=== PATIENT | male | born 1950 | race Caucasian/White ===

== ENCOUNTER 2017-05-13 16:17 | Emergency (ER) | payer MEDICARE ==
[2017-05-13] MEDS ORDERED: SODIUM CHLORIDE 0.9% 1,000 ML IV STA (18:42)
--- NOTE | 2017-05-13 18:50 | ED ---
Headache HPI - General Chief Complaint: Headache Stated Complaint: Visual Disturbance, Headache Time Seen by Provider: 05/13/17 18:29 Mode of arrival: wheelchair Limitations: no limitations - History of Present Illness Initial Comments: 66 years old male comes in with the headache and the tunnel vision for about a week now he said he had a headache for the one week headache started on the top of the head now artifacts back of the back of the head family noticed that his speech is quite slurred he has no teeth and he had a hard time talking before but her right now it's quite quite quite worse speech is unaffected for 2 days now he has a headache he has a blurred vision he had a slurred speech and headache pain going on for a week with the time of dictation and it's worse with going on for 2 days he denies any weakness of upper extremity exam he said he is hard time walking area and she has smoked most part of his life he denies any neck pain he denies any chest pain there is no pleuritic chest pain it does not hurt worse when he takes a deep breath no abdominal pain his legs are weak there is no weakness of her extremities - Related Data Home Medications Medication Instructions Recorded Confirmed Albuterol Nebulized [Ventolin 2.5 mg INHALATION RT-QID 05/13/17 05/13/17 Nebulized] Atenolol 25 mg PO DAILY 05/13/17 05/13/17 Levofloxacin [Levaquin] 500 mg PO DAILY 05/13/17 05/13/17 Ranitidine HCl 150 mg PO DAILY 05/13/17 05/13/17 Terazosin [Hytrin] 5 mg PO HS 05/13/17 05/13/17 Theophylline 12 Hour [Buddy-Dur] 300 mg PO BID 05/13/17 05/13/17 methylPREDNISolone [Medrol Dose See Taper PO DIRECTED 05/13/17 05/13/17 Pack] Allergies Allergy/AdvReac Type Severity Reaction Status Date / Time No Known Allergies Allergy Verified 05/13/17 18:33 Review of Systems ROS Statement: Those systems with pertinent positive or pertinent negative responses have been documented in the HPI. ROS Other: All systems not noted in ROS Statement are negative. Past Medical History Past Medical History: Asthma, COPD History of Any Multi-Drug Resistant Organisms: None Reported Past Surgical History: No Surgical Hx Reported Past Psychological History: No Psychological Hx Reported Smoking Status: Current every day smoker Past Alcohol Use History: Occasional Past Drug Use History: None Reported General Exam - General Exam Comments Initial Comments: General: The patient is awake he is breathing fast he looks pale and looks tired GCS is 15 Skin: Skin is warm and dry and no rashes or lesions are noted. Eye: Pupils are equal, round and reactive to light, extra-ocular movements are intact; there is normal conjunctiva bilaterally. Ears, nose, mouth and throat: There are moist mucous membranes and no oral lesions. Neck: The neck is supple, there is no tenderness or JVD. Cardiovascular: There is a regular rate and rhythm. No murmur, rub or gallop is appreciated. Respiratory: To auscultation bilateral and lungs are consistent with a severe COPD Gastrointestinal: Soft, non-distended, non-tender abdomen without masses or organomegaly noted. There is no rebound or guarding present. Bowel sounds are unremarkable. Back: There is no tenderness to palpation in the midline. There is no obvious deformity. Musculoskeletal: Normal ROM, no tenderness, There is no pedal edema. There is no calf tenderness or swelling. No cords were appreciated. Neurological: CN II-XII intact, Cranial nerves III through XII are intact. There are no obvious motor or sensory deficits. Coordination appears grossly intact. Speech is normal. Psychiatric: Cooperative, appropriate mood & affect, normal judgment. Limitations: no limitations Course Vital Signs 05/13/17 16:57 Temperature 98.1 F Pulse Rate 69 Respiratory 20 Rate Blood Pressure 132/75 O2 Sat by Pulse 97 Oximetry EKG is normal normal sinus rhythm ventricular rate is 65 OK interval is 152 QRS duration is 74 QT/QTc is 390/45 review of this EKG as bit harder because of the massive artifacts but I suspect ST elevation in lead 2 and lead 3 then I have similar findings in V4 V5 and V6 I [place] [facility] [place] 8D shows a new changes but he hasn't no chest pain or he has no pleuritic chest pain and do a quick head CT to rule out any subdural or epidural Patient is reassessed at term 2029, head CT is normal CBC INR troponin and comprehensive metabolic panel, we will recommend Dr. Monsalve to admit him a neuro consult and ophthalmology consult Medical Decision Making - Lab Data Result diagrams: 05/13/17 18:10 05/13/17 18:10 Lab Results 05/13/17 05/13/17 05/13/17 Range/Units 18:10 18:10 18:10 WBC 10.1 (3.8-10.6) k/uL RBC 4.54 (4.30-5.90) m/uL Hgb 14.8 (13.0-17.5) gm/dL Hct 44.5 (39.0-53.0) % MCV 97.9 (80.0-100.0) fL MCH 32.7 (25.0-35.0) pg MCHC 33.4 (31.0-37.0) g/dL RDW 12.8 (11.5-15.5) % Plt Count 268 (150-450) k/uL Neutrophils % 76 % Lymphocytes % 13 % Monocytes % 9 % Eosinophils % 1 % Basophils % 1 % Neutrophils # 7.6 (1.3-7.7) k/uL Lymphocytes # 1.3 (1.0-4.8) k/uL Monocytes # 0.9 (0-1.0) k/uL Eosinophils # 0.1 (0-0.7) k/uL Basophils # 0.1 (0-0.2) k/uL PT (9.0-12.0) sec INR (<1.2) APTT (22.0-30.0) sec Sodium 131 L (137-145) mmol/L Potassium 4.3 (3.5-5.1) mmol/L Chloride 95 L (98-107) mmol/L Carbon Dioxide 24 (22-30) mmol/L Anion Gap 12 mmol/L BUN 15 (9-20) mg/dL Creatinine 0.60 L (0.66-1.25) mg/dL Est GFR (CKD-EPI)AfAm >90 (>60 ml/min/1.73 sqM) Est GFR (CKD-EPI)NonAf >90 (>60 ml/min/1.73 sqM) Glucose 85 (74-99) mg/dL Calcium 9.4 (8.4-10.2) mg/dL Total Bilirubin 0.8 (0.2-1.3) mg/dL AST 19 (17-59) U/L ALT 26 (21-72) U/L Alkaline Phosphatase 44 (38-126) U/L Total Creatine Kinase 36 L (55-170) U/L CK-MB (CK-2) 1.9 (0.0-2.4) ng/mL CK-MB (CK-2) Rel Index 5.3 Troponin I <0.012 (0.000-0.034) ng/mL Total Protein 7.0 (6.3-8.2) g/dL Albumin 3.9 (3.5-5.0) g/dL 05/13/17 Range/Units 18:10 WBC (3.8-10.6) k/uL RBC (4.30-5.90) m/uL Hgb (13.0-17.5) gm/dL Hct (39.0-53.0) % MCV (80.0-100.0) fL MCH (25.0-35.0) pg MCHC (31.0-37.0) g/dL RDW (11.5-15.5) % Plt Count (150-450) k/uL Neutrophils % % Lymphocytes % % Monocytes % % Eosinophils % % Basophils % % Neutrophils # (1.3-7.7) k/uL Lymphocytes # (1.0-4.8) k/uL Monocytes # (0-1.0) k/uL Eosinophils # (0-0.7) k/uL Basophils # (0-0.2) k/uL PT 10.3 (9.0-12.0) sec INR 1.1 (<1.2) APTT 23.5 (22.0-30.0) sec Sodium (137-145) mmol/L Potassium (3.5-5.1) mmol/L Chloride (98-107) mmol/L Carbon Dioxide (22-30) mmol/L Anion Gap mmol/L BUN (9-20) mg/dL Creatinine (0.66-1.25) mg/dL Est GFR (CKD-EPI)AfAm (>60 ml/min/1.73 sqM) Est GFR (CKD-EPI)NonAf (>60 ml/min/1.73 sqM) Glucose (74-99) mg/dL Calcium (8.4-10.2) mg/dL Total Bilirubin (0.2-1.3) mg/dL AST (17-59) U/L ALT (21-72) U/L Alkaline Phosphatase (38-126) U/L Total Creatine Kinase (55-170) U/L CK-MB (CK-2) (0.0-2.4) ng/mL CK-MB (CK-2) Rel Index Troponin I (0.000-0.034) ng/mL Total Protein (6.3-8.2) g/dL Albumin (3.5-5.0) g/dL Disposition Clinical Impression: Headache, Blurred vision, Slurred speech Disposition: ADMITTED IP TO THIS [facility] Condition: Good Referrals: Gavino Monsalve DO [Primary Care Provider] - 1-2 days
[2017-05-13 18:58] LABS: Basophils # (A) 0.1 k/uL (0-0.2); Basophils % (A) 1 %; Eosinophils # (A) 0.1 k/uL (0-0.7); Eosinophils % (A) 1 %; HCT 44.5 % (39.0-53.0); HGB 14.8 gm/dL (13.0-17.5); Lymphocytes # (A) 1.3 k/uL (1.0-4.8); Lymphocytes % (A) 13 %; MCH 32.7 pg (25.0-35.0); MCHC 33.4 g/dL (31.0-37.0); MCV 97.9 fL (80.0-100.0); Mean Platelet Volume 7.3; Monocytes # (A) 0.9 k/uL (0-1.0); Monocytes % (A) 9 %; Neutrophils # (A) 7.6 k/uL (1.3-7.7); Neutrophils % (A) 76 %; Platelet Count 268 k/uL (150-450); RBC 4.54 m/uL (4.30-5.90); RDW 12.8 % (11.5-15.5); WBC 10.1 k/uL (3.8-10.6)
[2017-05-13 19:08] LABS: ALT 26 U/L (21-72); AST 19 U/L (17-59); Albumin 3.9 g/dL (3.5-5.0); Alkaline Phosphatase 44 U/L (38-126); Anion Gap 12 mmol/L; Blood Urea Nitrogen 15 mg/dL (9-20); Calcium 9.4 mg/dL (8.4-10.2); Carbon Dioxide 24 mmol/L (22-30); Chloride 95 mmol/L (98-107); Glucose 85 mg/dL (74-99); Potassium 4.3 mmol/L (3.5-5.1); Sodium 131 mmol/L (137-145); Total Bilirubin 0.8 mg/dL (0.2-1.3)
[2017-05-13 19:09] LABS: INR 1.1 (<1.2); Partial Thromboplastin Time 23.5 sec (22.0-30.0); Prothrombin Time 10.3 sec (9.0-12.0)
[2017-05-13 19:23] LABS: Creatine Kinase 36 U/L (55-170)
[2017-05-13 19:36] LABS: Creatine Kinase MB 1.9 ng/mL (0.0-2.4); Troponin I <0.012 ng/mL (0.000-0.034)
--- NOTE | 2017-05-13 20:14 | CT ---
EXAMINATION TYPE: CT brain wo con DATE OF EXAM: 05/13/2017 COMPARISON: NONE HISTORY: sent by urgent care for changes in vision, headache, slurred speech CT DLP: 1054.2 mGycm Automated exposure control for dose reduction was used. FINDINGS: There is cerebral cortical atrophy. There is moderate patchy hypodensity in the periventricular white matter. There is hypodensity in the right side of the pearl and right cerebral peduncle. There is no mass effect nor midline shift. There is no sign of intracranial hemorrhage. The calvarium is intact. IMPRESSION: CEREBRAL ATROPHY AND CHRONIC SMALL VESSEL ISCHEMIA. NO ACUTE INTRACRANIAL ABNORMALITY. NO HEMORRHAGE.
[2017-05-13 20:45] LABS: Appearance,Urine Clear (Clear); Bilirubin,Urine Negative (Negative); Blood,Urine Negative (Negative); Color,Urine Yellow; Glucose,Urine (UA) Negative (Negative); Ketones,Urine Negative (Negative); Leukocyte Esterase,Urine Negative (Negative); Nitrite,Urine Negative (Negative); Protein,Urine Negative (Negative); Specific Gravity,Urine 1.012 (1.001-1.035)
[2017-05-13 20:55] LABS: Amphetamine Screen,Urine Not Detected (NotDetected); Barbiturate Screen,Urine Not Detected (NotDetected); Benzodiazepines Screen,Urine Not Detected (NotDetected); Cocaine Screen,Urine Not Detected (NotDetected); Methadone Screen, Urine Not Detected (NotDetected); Opiate Screen,Urine Detected (NotDetected); Oxycodone Screen, Urine Not Detected (NotDetected); Phencyclidine Screen,Urine Not Detected (NotDetected); Tricyclic Antidepressant,Urine Not Detected (NotDetected); Urn Cannabinoid Scrn Not Detected (NotDetected)
--- NOTE | 2017-05-13 20:58 | XR ---
EXAMINATION TYPE: XR chest 2V DATE OF EXAM: 05/13/2017 COMPARISON: 12/10/2016 HISTORY: Altered mental status. Chest pain TECHNIQUE: Frontal and lateral views of the chest are obtained. FINDINGS: There is no heart failure nor confluent pneumonic infiltrate. There is slight coarsening o f interstitial markings. There is mild pulmonary hyperinflation. Heart size is normal. Bony thorax is intact. There are chest leads. IMPRESSION: COPD and pulmonary fibrosis. No acute lung disease. No change.
[2017-05-13] MEDS ORDERED: THEOPHYLLINE 24 HOUR 300 MG CAP.ER.24H PO SCH (21:00)
[2017-05-13] MEDS ORDERED: DOXAZOSIN 4 MG TAB PO SCH (21:00)
[2017-05-13 21:06] LABS: Glucose,Whole Blood 90 mg/dL (75-99)
[2017-05-13 21:56] VITALS: BP 134/84; PULSE 72; RESP 17; TEMP 98.4
[2017-05-14] MEDS ORDERED: methylPREDNISolone SOD SUCCI 125 MG/2 ML VIAL IV SCH
[2017-05-14] MEDS ORDERED: IPRATROPIUM-ALBUTEROL 3 ML NEB INHALATION SCH (08:00)
[2017-05-14] MEDS ORDERED: BUDESONIDE 0.5 MG/2 ML NEBU INHALATION SCH (08:00)
[2017-05-14] MEDS ORDERED: SYMBICORT 80-4.5 MCG INHALER INHALATION SCH (08:00)
[2017-05-14] MEDS ORDERED: FAMOTIDINE 20 MG TAB PO SCH (09:00)
[2017-05-14] MEDS ORDERED: LEVOFLOXACIN 500 MG TAB PO SCH (09:00)
[2017-05-14] MEDS ORDERED: ATENOLOL 25 MG TAB PO SCH (09:00)
== END 2017-05-13 21:53 | disposition left against medical advice (07) ==
LOC: EC 16:17 → 6SEL 20:37 → UNDOADMIN 20:37 → EC 21:53
DX: H53.8 Other visual disturbances (principal); R51 Headache; R47.81 Slurred speech; J44.9 Chronic obstructive pulmonary disease, unspecified; F17.200 Nicotine dependence, unspecified, uncomplicated; Z79.899 Other long term (current) drug therapy
CPT/HCPCS: 36415; 70450; 71046; 80053; 80306; 81003; 82550; 82553; 84484; 85025; 85610; 85730; 93005; 96360; 99284

== ENCOUNTER 2017-05-17 10:40 | Inpatient (IN) | payer MEDICARE ==
[2017-05-17] MEDS ORDERED: SODIUM CHLORIDE 0.9% 1,000 ML IV STA (10:57)
[2017-05-17] MEDS ORDERED: ASPIRIN 81 MG PO STA (10:57)
[2017-05-17] MEDS ORDERED: NITROGLYCERIN OINT 1 INCH/GM PACKET TOPICAL STA (10:57)
[2017-05-17] MEDS ORDERED: MORPHINE SULFATE/PF 10MG/10ML VL IV STA (10:57)
[2017-05-17 11:21] LABS: Basophils # (A) 0.1 k/uL (0-0.2); Basophils % (A) 1 %; Eosinophils # (A) 0.1 k/uL (0-0.7); Eosinophils % (A) 1 %; HCT 46.5 % (39.0-53.0); HGB 15.6 gm/dL (13.0-17.5); Lymphocytes # (A) 0.8 k/uL (1.0-4.8); Lymphocytes % (A) 9 %; MCH 32.4 pg (25.0-35.0); MCHC 33.5 g/dL (31.0-37.0); MCV 96.7 fL (80.0-100.0); Mean Platelet Volume 6.9; Monocytes # (A) 0.8 k/uL (0-1.0); Monocytes % (A) 10 %; Neutrophils # (A) 6.3 k/uL (1.3-7.7); Neutrophils % (A) 77 %; Platelet Count 211 k/uL (150-450); RBC 4.81 m/uL (4.30-5.90); RDW 12.7 % (11.5-15.5); WBC 8.2 k/uL (3.8-10.6)
[2017-05-17 11:29] LABS: ABG Base Excess 0.1 mmol/L; ABG HCO3 24 mmol/L (21-25); ABG PCO2 35 mmHg (35-45); ABG PH 7.45 (7.35-7.45); ABG PO2 >400 mmHg (83-108); ABG TCO2 25 mmol/L (19-24)
[2017-05-17 11:32] LABS: ALT 30 U/L (21-72); AST 20 U/L (17-59); Albumin 3.8 g/dL (3.5-5.0); Alkaline Phosphatase 59 U/L (38-126); Anion Gap 14 mmol/L; Blood Urea Nitrogen 9 mg/dL (9-20); Calcium 9.1 mg/dL (8.4-10.2); Carbon Dioxide 24 mmol/L (22-30); Chloride 93 mmol/L (98-107); Glucose 85 mg/dL (74-99); Magnesium 1.6 mg/dL (1.6-2.3); Potassium 3.9 mmol/L (3.5-5.1); Sodium 131 mmol/L (137-145); Total Protein 6.7 g/dL (6.3-8.2)
[2017-05-17 11:35] LABS: D-Dimer 0.25 mg/L FEU (<0.60)
[2017-05-17 11:36] LABS: Partial Thromboplastin Time 25.1 sec (22.0-30.0); Prothrombin Time 10.2 sec (9.0-12.0)
[2017-05-17 11:49] LABS: Creatine Kinase 45 U/L (55-170)
[2017-05-17 12:01] LABS: Creatine Kinase MB 1.8 ng/mL (0.0-2.4); Troponin I <0.012 ng/mL (0.000-0.034)
--- NOTE | 2017-05-17 12:03 | XR ---
EXAMINATION TYPE: XR chest 2V DATE OF EXAM: 05/17/2017 HISTORY: Chest Pain. REFERENCE: Previous study dated 327. FINDINGS: The lungs are overinflated. There is atelectasis in the right upper lobe. Lungs otherwise c lear. Pleural spaces are clear. The heart is not enlarged. IMPRESSION: 1. COPD. 2. ATELECTATIC CHANGE, RIGHT UPPER LOBE.
--- NOTE | 2017-05-17 12:34 | ED ---
SOB HPI - General Chief Complaint: Shortness of Breath Stated Complaint: LESLY Time Seen by Provider: 05/17/17 10:46 Source: patient Mode of arrival: EMS Limitations: no limitations - History of Present Illness Initial Comments: 66-year-old gentleman with a history of smoking for about 50 years I seen him 2 days ago I wanted to admit him and he signed AMA, comes in today with a shortness of breath and respiratory distress in his respiratory rate was 24 he was using accessory muscles embolus crew put him on CPAP we converted that to the BiPAP he looks better complaining about the chest pain complaining about pleuritic chest pain and does cough up phlegm continuously he denies any headaches no abdominal pain no frequency urgency dysuria, devious system is unremarkable otherwise - Related Data Home Medications Medication Instructions Recorded Confirmed Albuterol Nebulized [Ventolin 2.5 mg INHALATION RT-QID 05/13/17 05/13/17 Nebulized] Atenolol 25 mg PO DAILY 05/13/17 05/13/17 Levofloxacin [Levaquin] 500 mg PO DAILY 05/13/17 05/13/17 Ranitidine HCl 150 mg PO DAILY 05/13/17 05/13/17 Terazosin [Hytrin] 5 mg PO HS 05/13/17 05/13/17 Theophylline 12 Hour [Buddy-Dur] 300 mg PO BID 05/13/17 05/13/17 methylPREDNISolone [Medrol Dose See Taper PO DIRECTED 05/13/17 05/13/17 Pack] Allergies Allergy/AdvReac Type Severity Reaction Status Date / Time No Known Allergies Allergy Verified 05/13/17 18:33 Review of Systems ROS Statement: Those systems with pertinent positive or pertinent negative responses have been documented in the HPI. ROS Other: All systems not noted in ROS Statement are negative. Past Medical History Past Medical History: Asthma, COPD History of Any Multi-Drug Resistant Organisms: None Reported Past Surgical History: No Surgical Hx Reported Past Psychological History: No Psychological Hx Reported Smoking Status: Current every day smoker Past Alcohol Use History: Occasional Past Drug Use History: None Reported General Exam - General Exam Comments Initial Comments: General: The patient is awake and severe respiratory distress using accessory muscles sputum with his CPAP on had a hard time completing his sentences Skin: Skin is warm and dry and no rashes or lesions are noted. Eye: Pupils are equal, round and reactive to light, extra-ocular movements are intact; there is normal conjunctiva bilaterally. Ears, nose, mouth and throat: There are moist mucous membranes and no oral lesions. Neck: The neck is supple, there is no tenderness or JVD. Cardiovascular: There is a regular rate and rhythm. No murmur, rub or gallop is appreciated. Respiratory: To auscultation bilateral, exam consistent with a severe COPD Gastrointestinal: Soft, non-distended, non-tender abdomen without masses or organomegaly noted. There is no rebound or guarding present. Bowel sounds are unremarkable. Back: There is no tenderness to palpation in the midline. There is no obvious deformity. Musculoskeletal: Normal ROM, no tenderness, There is no pedal edema. There is no calf tenderness or swelling. No cords were appreciated. Neurological: CN II-XII intact, Cranial nerves III through XII are intact. There are no obvious motor or sensory deficits. Coordination appears grossly intact. Speech is normal. Psychiatric: Cooperative, appropriate mood & affect, normal judgment. Limitations: no limitations Course Vital Signs 05/17/17 10:44 Temperature 97.5 F L Pulse Rate 72 Respiratory 24 Rate Blood Pressure 128/70 O2 Sat by Pulse 100 Oximetry EKG is Medical Decision Making - Lab Data Result diagrams: 05/17/17 11:10 05/17/17 11:10 Lab Results 05/17/17 05/17/17 05/17/17 Range/Units 11:10 11:10 11:10 WBC 8.2 (3.8-10.6) k/uL RBC 4.81 (4.30-5.90) m/uL Hgb 15.6 (13.0-17.5) gm/dL Hct 46.5 (39.0-53.0) % MCV 96.7 (80.0-100.0) fL MCH 32.4 (25.0-35.0) pg MCHC 33.5 (31.0-37.0) g/dL RDW 12.7 (11.5-15.5) % Plt Count 211 (150-450) k/uL Neutrophils % 77 % Lymphocytes % 9 % Monocytes % 10 % Eosinophils % 1 % Basophils % 1 % Neutrophils # 6.3 (1.3-7.7) k/uL Lymphocytes # 0.8 L (1.0-4.8) k/uL Monocytes # 0.8 (0-1.0) k/uL Eosinophils # 0.1 (0-0.7) k/uL Basophils # 0.1 (0-0.2) k/uL PT (9.0-12.0) sec INR (<1.2) APTT (22.0-30.0) sec D-Dimer (<0.60) mg/L FEU Sample Site ABG pH (7.35-7.45) ABG pCO2 (35-45) mmHg ABG pO2 (83-108) mmHg ABG HCO3 (21-25) mmol/L ABG Total CO2 (19-24) mmol/L ABG O2 Saturation (94-97) % ABG Base Excess mmol/L Pato Test FiO2 % Sodium 131 L (137-145) mmol/L Potassium 3.9 (3.5-5.1) mmol/L Chloride 93 L (98-107) mmol/L Carbon Dioxide 24 (22-30) mmol/L Anion Gap 14 mmol/L BUN 9 (9-20) mg/dL Creatinine 0.65 L (0.66-1.25) mg/dL Est GFR (CKD-EPI)AfAm >90 (>60 ml/min/1.73 sqM) Est GFR (CKD-EPI)NonAf >90 (>60 ml/min/1.73 sqM) Glucose 85 (74-99) mg/dL Calcium 9.1 (8.4-10.2) mg/dL Magnesium 1.6 (1.6-2.3) mg/dL Total Bilirubin 1.0 (0.2-1.3) mg/dL AST 20 (17-59) U/L ALT 30 (21-72) U/L Alkaline Phosphatase 59 (38-126) U/L Total Creatine Kinase 45 L (55-170) U/L CK-MB (CK-2) 1.8 (0.0-2.4) ng/mL CK-MB (CK-2) Rel Index 4.0 Troponin I <0.012 (0.000-0.034) ng/mL Total Protein 6.7 (6.3-8.2) g/dL Albumin 3.8 (3.5-5.0) g/dL 05/17/17 05/17/17 Range/Units 11:10 11:25 WBC (3.8-10.6) k/uL RBC (4.30-5.90) m/uL Hgb (13.0-17.5) gm/dL Hct (39.0-53.0) % MCV (80.0-100.0) fL MCH (25.0-35.0) pg MCHC (31.0-37.0) g/dL RDW (11.5-15.5) % Plt Count (150-450) k/uL Neutrophils % % Lymphocytes % % Monocytes % % Eosinophils % % Basophils % % Neutrophils # (1.3-7.7) k/uL Lymphocytes # (1.0-4.8) k/uL Monocytes # (0-1.0) k/uL Eosinophils # (0-0.7) k/uL Basophils # (0-0.2) k/uL PT 10.2 (9.0-12.0) sec INR 1.0 (<1.2) APTT 25.1 (22.0-30.0) sec D-Dimer 0.25 (<0.60) mg/L FEU Sample Site left radial ABG pH 7.45 (7.35-7.45) ABG pCO2 35 (35-45) mmHg ABG pO2 >400 H (83-108) mmHg ABG HCO3 24 (21-25) mmol/L ABG Total CO2 25 H (19-24) mmol/L ABG O2 Saturation 100.0 H (94-97) % ABG Base Excess 0.1 mmol/L Pato Test Yes FiO2 100 % Sodium (137-145) mmol/L Potassium (3.5-5.1) mmol/L Chloride (98-107) mmol/L Carbon Dioxide (22-30) mmol/L Anion Gap mmol/L BUN (9-20) mg/dL Creatinine (0.66-1.25) mg/dL Est GFR (CKD-EPI)AfAm (>60 ml/min/1.73 sqM) Est GFR (CKD-EPI)NonAf (>60 ml/min/1.73 sqM) Glucose (74-99) mg/dL Calcium (8.4-10.2) mg/dL Magnesium (1.6-2.3) mg/dL Total Bilirubin (0.2-1.3) mg/dL AST (17-59) U/L ALT (21-72) U/L Alkaline Phosphatase (38-126) U/L Total Creatine Kinase (55-170) U/L CK-MB (CK-2) (0.0-2.4) ng/mL CK-MB (CK-2) Rel Index Troponin I (0.000-0.034) ng/mL Total Protein (6.3-8.2) g/dL Albumin (3.5-5.0) g/dL Critical Care Time Total Critical Care Time: 45 Critical Care Time: He came in a severe respiratory distress using accessory muscles unable to complete a sentence respiratory rate was 24 on arrival T he got a neb treatments he also had Solu-Medrol 125 his O2 sat was in mid 80s we converted that him CPAP to BiPAP so for d-dimer is unremarkable CBC chest x-ray is consistent with a COPD troponin is unremarkable EKG does not show any STEMI he has acute exacerbation of COPD he be he will stay on the BiPAP will admit him under Dr. Agrawal service he'll see Dr. Grisel Talavera were done and they look pretty much compensated is a pH is 7.44 bicarb is 24 we will put him on empiric antibiotics, most probably quinolones albuterol Atrovent nebs every 4 IV steroids 60 mg every 6 hours hopefully that would help him to turn the corner Disposition Clinical Impression: Shortness of breath, Chest pain Disposition: ADMITTED IP TO THIS HOSP Referrals: Gavino Monsalve DO [Primary Care Provider] - 1-2 days
[2017-05-17] MEDS ORDERED: SYMBICORT 160-4.5 MCG INHALER INHALATION STA (12:45)
[2017-05-17] MEDS ORDERED: LEVOFLOXACIN 500MG-D5W PMX 500 MG in DEXTROSE/WATER 1 100ML.BAG IVPB STA (12:45)
[2017-05-17] MEDS ORDERED: IPRATROPIUM 0.5 MG/2.5 ML NEBU INHALATION PRN (12:46)
[2017-05-17] MEDS ORDERED: NON-FORMULARY DRUG (Doxylamine Succinate [Unisom] 25 MG) PO PRN (13:10)
[2017-05-17] MEDS ORDERED: ALPRAZolam 0.25 MG TAB PO PRN (13:10)
[2017-05-17] MEDS ORDERED: HYDROcodone/APAP 7.5-325MG 1 EACH TAB PO PRN (13:10)
[2017-05-17] MEDS: IPRATROPIUM-ALBUTEROL 3 ML NEB INHALATION SCH ×3 (13:20→20:03)
[2017-05-17] MEDS: BUDESONIDE 1 MG/2 ML NEBU INHALATION SCH ×2 (13:20→20:03)
[2017-05-17] MEDS: FORMOTEROL FUMARATE 20 MCG/2 ML NEBU INHALATION SCH ×2 (13:43→20:03)
[2017-05-17] MEDS: HEPARIN SODIUM,PORCINE 5,000 UNIT/ML 1 ML VIAL SQ SCH ×2 (14:25→20:26)
[2017-05-17] MEDS: FAMOTIDINE 20 MG TAB PO SCH (14:26)
[2017-05-17] MEDS: NICOTINE 14MG/24HR PATCH TRANSDERM SCH (14:35)
[2017-05-17] MEDS ORDERED: ALBUTEROL NEBULIZED 2.5 MG/3 ML INHALATION SCH (16:00)
[2017-05-17] MEDS: methylPREDNISolone SOD SUCCI 125 MG/2 ML VIAL IV SCH (16:03)
--- NOTE | 2017-05-17 16:08 | P.CNNES ---
History of Present Illness Consult date: 05/17/17 Reason for Consult: Patient admitted for shortness of breath and unsteady gait. History of Present Illness: This patient is a 66-year-old right-handed white male who appears much older than his stated age. He was brought in to the emergency room today with increasing shortness of breath. He was seen in the ER at the [facility] 2 days previously and signed out AMA. He he was brought back today for further reevaluation of shortness of breath and respiratory distress. Apparently he has been treated with severe COPD, emphysema, and asthma in the past. He has been a long-time smoker for over 50 years. According to the family over the last 2 weeks he has shown deterioration with slurring of his speech and left-sided weakness. He is also been having difficulty ambulating at home due to weakness in the legs. For these reasons neurology was consulted today after he was seen in the ER by Dr. Finley. He did undergo a computed tomography scan of the brain on his previous visit to the emergency room on . This CAT scan revealed evidence of cerebral atrophy and chronic small vessel ischemia. No acute intracranial abnormality was noted. No evidence of hemorrhage. Patient denies any previous history of stroke. According to his who is at bedside he has been showing more difficulty with his speech being much more slurred today as well as increased generalized weakness. We have recommended the patient to undergo an MRI of the brain for a complete stroke evaluation. He is currently taking aspirin 325 mg daily and should continue on the same. The patient is a poor historian but states he has been having difficulty with his breathing much more recently. Pulmonary medicine has been consulted and we are waiting their recommendations. He'll be placed on BiPAP most likely by pulmonary medicine and we will see how he does with treatment of underlying respiratory distress. Neurology is now been consulted for further evaluation and recommendations. Review of Systems Constitutional: Denies chills, Denies fever Eyes: denies blurred vision, denies pain Ears, nose, mouth and throat: Denies headache, Denies sore throat Cardiovascular: Denies chest pain, Denies shortness of breath Respiratory: Reports congestion, Reports cough with sputum, Reports dyspnea, Reports home oxygen, Reports sleep apnea Gastrointestinal: Denies abdominal pain, Denies diarrhea, Denies nausea, Denies vomiting Musculoskeletal: Denies myalgias Integumentary: Denies pruritus, Denies rash Neurological: Reports change in mentation, Reports change in speech, Reports gait dysfunction, Reports lack of coordination, Reports motor disturbance, Reports tingling, Denies numbness, Denies weakness Psychiatric: Denies anxiety, Denies depression Endocrine: Denies fatigue, Denies weight change Past Medical History Past Medical History: Asthma, COPD Additional Past Medical History / Comment(s): emphyzema History of Any Multi-Drug Resistant Organisms: None Reported Past Surgical History: No Surgical Hx Reported Past Psychological History: No Psychological Hx Reported Smoking Status: Current every day smoker Past Alcohol Use History: Occasional Past Drug Use History: None Reported Medications and Allergies Home Medications Medication Instructions Recorded Confirmed Type Albuterol Nebulized [Ventolin 2.5 mg INHALATION RT-QID 05/13/17 05/17/17 History Nebulized] Atenolol 25 mg PO DAILY 05/13/17 05/17/17 History Levofloxacin [Levaquin] 500 mg PO DAILY 05/13/17 05/17/17 History Ranitidine HCl 150 mg PO DAILY 05/13/17 05/17/17 History Terazosin [Hytrin] 5 mg PO HS 05/13/17 05/17/17 History Theophylline 12 Hour [Buddy-Dur] 300 mg PO BID 05/13/17 05/17/17 History Doxylamine Succinate [Unisom] 25 mg PO HS PRN 05/17/17 05/17/17 History HYDROcodone/APAP 7.5-325MG [[place] 1 tab PO Q8H PRN 05/17/17 05/17/17 History 7.5-325] Allergies Allergy/AdvReac Type Severity Reaction Status Date / Time No Known Allergies Allergy Verified 05/17/17 12:42 Physical Examination - Vital Signs Vital Signs: Vital Signs Temp Pulse Pulse Resp BP BP Pulse Ox 05/17/17 15:37 96.9 F L 72 20 148/71 100 05/17/17 14:14 96.9 F L 85 18 108/59 05/17/17 13:36 93 05/17/17 13:35 97.8 F 74 24 121/78 100 05/17/17 13:23 89 05/17/17 10:44 97.5 F L 72 24 128/70 100 Intake and Output 05/17/17 05/17/17 05/17/17 06:59 14:59 22:59 Other: Weight 47.627 kg - Constitutional General appearance: cooperative, thin - EENT EENT: PERRL, mucous membranes moist - Respiratory Respiratory: lungs clear, normal breath sounds, respiratory distress, accessory muscle use, rhonchi - Cardiovascular Cardiovascular: regular rate, normal S1, normal S2 Extremities: no peripheral edema bilaterally - Gastrointestinal Gastrointestinal: normoactive bowel sounds - Integumentary Integumentary: normal - Neurologic Cranial nerve examination: PERRL, EOMI, VFF, V1/V2/V3 grossly intact, tongue midline, intact gag reflex, intact corneal reflex, facial droop (Patient has left upper motor neuron facial weakness.), normal palatal elevation Speech examination: motor aphasia Sensorimotor examination: pronator drift (Patient has a left pronator drift.) Motor examination - right side: 4/5: biceps, triceps, wrist flexion, wrist extension, putaway driver, hip flexors, knee extensors, dorsiflexion, toe extension (EHL) , plantarflexion Motor examination - left side: 3/5: biceps, triceps, wrist flexion, wrist extension, putaway driver, hip flexors, knee extensors, dorsiflexion, toe extension (EHL) , plantarflexion Detailed sensory examination: intact Reflex and gait examination: intact Reflexes: 1+: ankle, bicep, knee, tricep - Musculoskeletal Musculoskeletal: no pain - Psychiatric Psychiatric: mood/affect appropriate, cooperative Results - Laboratory Findings CBC and BMP: 05/17/17 11:10 05/17/17 11:10 Abnormal Lab Findings: Abnormal Labs 05/17/17 05/17/17 05/17/17 11:10 11:10 11:10 Lymphocytes # 0.8 L ABG pO2 ABG Total CO2 ABG O2 Saturation Sodium 131 L Chloride 93 L Creatinine 0.65 L Total Creatine Kinase 45 L 05/17/17 11:25 Lymphocytes # ABG pO2 >400 H ABG Total CO2 25 H ABG O2 Saturation 100.0 H Sodium Chloride Creatinine Total Creatine Kinase Assessment and Plan (1) Acute right arterial ischemic stroke, MCA (middle cerebral artery) Current Visit: Yes Status: Acute Code(s): I63.511 - CEREB INFRC D/T UNSP OCCLS OR STENOS OF RIGHT MID CEREB ART SNOMED Code(s): 377677292 (2) Aphasia Current Visit: Yes Status: Acute Code(s): R47.01 - APHASIA SNOMED Code(s) : 83053409 (3) Gait disorder Current Visit: Yes Status: Acute Code(s): R26.9 - UNSPECIFIED ABNORMALITIES OF GAIT AND MOBILITY SNOMED Code(s): 31513941 (4) Shortness of breath Current Visit: Yes Status: Acute Code(s): R06.02 - SHORTNESS OF BREATH SNOMED Code(s): 502365717 Plan: This patient is a 66-year-old male who was seen today for evaluation of unsteady gait and generalized weakness. His neurological examination reveals him to have left-sided hemiparesis as well as expressive aphasia. His clinical history suggests possibility of acute right hemispheric stroke. We are recommending an MRI of the brain to be done for further evaluation. He underwent computed tomography scan of the brain on 05/13/2017 results of which are noted above. As per his he is showing deterioration in the last week in terms of his speech and increasing weakness. He is to continue on aspirin therapy daily at this time. We have recommended a complete stroke evaluation for the patient. He has evidence of severe rest [place] distress and is to be seen by pulmonary medicine. He was admitted with increased shortness of breath and rest [place] compromise. His overall prognosis at this time remains very guarded. Case was discussed at length with the patient as well as his and daughter at bedside. All their questions were answered. They're aware of his very guarded condition. Time with Patient: Greater than 30
--- NOTE | 2017-05-17 16:45 | US ---
EXAMINATION TYPE: US carotid duplex BILAT DATE OF EXAM: 05/17/2017 COMPARISON: NONE CLINICAL HISTORY: Patient with left sided weakness and slurred speec. EXAM MEASUREMENTS: RIGHT: Peak Systolic Velocity (PSV) cm/sec ----- Right CCA: 74.9 ----- Right ICA: 95.6 ----- Right ECA: 107.5 ICA/CCA ratio: 1.3 RIGHT: End Diastole cm/sec ----- Right CCA: 13.9 ----- Right ICA: 28.3 ----- Right ECA: 12.9 LEFT: Peak Systolic Velocity (PSV) cm/sec ----- Left CCA: 84.0 ----- Left ICA: 100.8 ----- Left ECA: 76.2 ICA/CCA ratio: 1.2 LEFT: End Diastole cm/sec ----- Left CCA: 20.6 ----- Left ICA: 32.2 ----- Left ECA: 14.1 VERTEBRALS (direction of flow): Right Vertebral: Antegrade Left Vertebral: Antegrade Rhythm: Arrhythmia No significant stenosis seen, no elevated velocities, bilateral shadowing plaque at bulb. IMPRESSION: There is antegrade flow in the vertebral arteries. The images and measurements suggest calcified plaque at the carotid artery bifurcations and up to 50% stenosis in both internal carotid arteries at their origins. Criteria for Assigning % of Stenosis / Diameter reduction (Estimation based on the indirect measurements of the internal carotid artery velocities (ICA PSV). 1. Normal (no stenosis)=ICA PSV < 125 cm/s: ratio < 2.0: ICA EDV<40 cm/s. 2. Less than 50% stenosis=ICA PSV < 125 cm/s: ratio < 2.0: ICA EDV<40 cm/s. 3. 50 to 69% stenosis=ICA PSV of 125 to 230 cm/s: ration 2.0 ? 4.0: ICA EDV 40-100 cm/s. 4. Greater than 70% stenosis to near occlusion= ICA PSV > 230 cm/s: ratio > 4.0: ICA EDV > 100 cm/s. 5. Near occlusion= ICA PSV velocities may be low or undetectable: variable ratio and ICA EDV. 6. Total occlusion=unable to detect flow.
[2017-05-17] MEDS ORDERED: TAMSULOSIN 0.4 MG CAP.ER.24H PO STA (18:39)
[2017-05-17] MEDS: DOXAZOSIN 4 MG TAB PO SCH (20:26)
[2017-05-17] MEDS: THEOPHYLLINE 24 HOUR 300 MG CAP.ER.24H PO SCH (20:26)
--- NOTE | 2017-05-17 20:53 | P.GSCN ---
History of Present Illness Consult date: 05/17/17 Reason for Consult: Urinary retention History of present illness: The patient is a 66-year-old male admitted through the emergency room for evaluation of increasing shortness of breath coupled with slurred's be changed and left-sided weakness. Patient has a history of COPD and was felt to have an exacerbation of this. There is also concern he may have suffered a right-sided CVA. He had been in the emergency room on 05/13 and a computed tomography scan of the brain at that time showed no acute changes. The patient refused admission for evaluation of his shortness of breath at that time. I was asked to see the patient as he has been unable to void since he was admitted. Apparently several attempts were made to insert a Hill catheter but were unsuccessful. The patient was bladder scanned and has over 1000 mL in his bladder. The patient has a history of bladder outflow obstruction and was taking Terazocin 5 mg daily prior to admission. He says that he usually voids every 2- 3 hours during the day and only occasionally at night. He says that over the last 2 or 3 days he's had increasing difficulty voiding. He has not had a bowel movement today but did have one yesterday. He apparently has had an episode of urinary retention in the past and was seen by me but this has been over 5 years ago. Review of Systems - Constitutional Reports weakness - Cardiovascular Reports shortness of breath - Gastrointestinal Denies abdominal pain, Denies change in bowel habits - Genitourinary Reports as per HPI - Neurological Reports weakness (Left arm and hand. The patient also is having some difficulty expressing himself verbally.) Past Medical History Past Medical History: Asthma, COPD, Hypertension Additional Past Medical History / Comment(s): emphyzema History of Any Multi-Drug Resistant Organisms: None Reported Past Surgical History: No Surgical Hx Reported Past Psychological History: No Psychological Hx Reported Smoking Status: Current every day smoker Past Alcohol Use History: Occasional Past Drug Use History: None Reported Medications and Allergies Home Medications Medication Instructions Recorded Confirmed Type Albuterol Nebulized [Ventolin 2.5 mg INHALATION RT-QID 05/13/17 05/17/17 History Nebulized] Atenolol 25 mg PO DAILY 05/13/17 05/17/17 History Levofloxacin [Levaquin] 500 mg PO DAILY 05/13/17 05/17/17 History Ranitidine HCl 150 mg PO DAILY 05/13/17 05/17/17 History Terazosin [Hytrin] 5 mg PO HS 05/13/17 05/17/17 History Theophylline 12 Hour [Buddy-Dur] 300 mg PO BID 05/13/17 05/17/17 History Doxylamine Succinate [Unisom] 25 mg PO HS PRN 05/17/17 05/17/17 History HYDROcodone/APAP 7.5-325MG [[place] 1 tab PO Q8H PRN 05/17/17 05/17/17 History 7.5-325] Allergies Allergy/AdvReac Type Severity Reaction Status Date / Time No Known Allergies Allergy Verified 05/17/17 12:42 Surgical - Exam Vital Signs Temp Pulse Resp BP Pulse Ox 97.5 F L 72 24 128/70 100 05/17/17 10:44 05/17/17 10:44 05/17/17 10:44 05/17/17 10:44 05/17/17 10:44 - General well developed, moderate distress, chronically ill - Neck no masses, no lymphadectomy - Respiratory other (Moderate shortness of breath with talking) - Abdomen Abdomen: no organomegaly, masses (The suprapubic area is dull to percussion consistent with a distended bladder) - Genitourinary normal penis with no external lesions, testicles non-tender - Rectum Rectum: normal sphincter tone, other (Prostate is 1-2+ enlarged, smooth and benign in consistency. No fecal impaction or rectal mass. Normal anal sphincter tone) - Neurologic other (Moderate expressive aphasia and weakness and left hand and arm) Results - Labs 05/17/17 11:10 05/17/17 11:10 Abnormal Lab Results - Last 24 Hours (Table) 05/17/17 05/17/17 05/17/17 Range/Units 11:10 11:10 11:10 Lymphocytes # 0.8 L (1.0-4.8) k/uL ABG pO2 (83-108) mmHg ABG Total CO2 (19-24) mmol/L ABG O2 Saturation (94-97) % Sodium 131 L (137-145) mmol/L Chloride 93 L (98-107) mmol/L Creatinine 0.65 L (0.66-1.25) mg/dL Total Creatine Kinase 45 L (55-170) U/L 05/17/17 Range/Units 11:25 Lymphocytes # (1.0-4.8) k/uL ABG pO2 >400 H (83-108) mmHg ABG Total CO2 25 H (19-24) mmol/L ABG O2 Saturation 100.0 H (94-97) % Sodium (137-145) mmol/L Chloride (98-107) mmol/L Creatinine (0.66-1.25) mg/dL Total Creatine Kinase (55-170) U/L Diabetes panel 05/17/17 Range/Units 11:10 Sodium 131 L (137-145) mmol/L Potassium 3.9 (3.5-5.1) mmol/L Chloride 93 L (98-107) mmol/L Carbon Dioxide 24 (22-30) mmol/L BUN 9 (9-20) mg/dL Creatinine 0.65 L (0.66-1.25) mg/dL Glucose 85 (74-99) mg/dL Calcium 9.1 (8.4-10.2) mg/dL AST 20 (17-59) U/L ALT 30 (21-72) U/L Alkaline Phosphatase 59 (38-126) U/L Total Protein 6.7 (6.3-8.2) g/dL Albumin 3.8 (3.5-5.0) g/dL Calcium panel 05/17/17 Range/Units 11:10 Calcium 9.1 (8.4-10.2) mg/dL Albumin 3.8 (3.5-5.0) g/dL Pituitary panel 05/17/17 Range/Units 11:10 Sodium 131 L (137-145) mmol/L Potassium 3.9 (3.5-5.1) mmol/L Chloride 93 L (98-107) mmol/L Carbon Dioxide 24 (22-30) mmol/L BUN 9 (9-20) mg/dL Creatinine 0.65 L (0.66-1.25) mg/dL Glucose 85 (74-99) mg/dL Calcium 9.1 (8.4-10.2) mg/dL Adrenal panel 05/17/17 Range/Units 11:10 Sodium 131 L (137-145) mmol/L Potassium 3.9 (3.5-5.1) mmol/L Chloride 93 L (98-107) mmol/L Carbon Dioxide 24 (22-30) mmol/L BUN 9 (9-20) mg/dL Creatinine 0.65 L (0.66-1.25) mg/dL Glucose 85 (74-99) mg/dL Calcium 9.1 (8.4-10.2) mg/dL Total Bilirubin 1.0 (0.2-1.3) mg/dL AST 20 (17-59) U/L ALT 30 (21-72) U/L Alkaline Phosphatase 59 (38-126) U/L Total Protein 6.7 (6.3-8.2) g/dL Albumin 3.8 (3.5-5.0) g/dL Assessment and Plan (1) Urinary retention Narrative/Plan: The cause of the patient's urinary retention is not clear. He does have a history of bladder outflow obstruction and had been taking Terazocin 5 mg daily prior to his admission but had no difficulty in voiding up until the last 1 or 2 days. It is possible that the patient's voiding problem is related to an acute CVA. Following my examination I was able to insert a 14-[place] coud catheter under sterile technique without difficulty. A large amount of clear yellow urine drained. The patient's catheter should remain in place until the cause of his left-sided weakness and expressive aphasia have been clarified. Once the patient's catheter is removed he should be bladder scanned within 3-4 hours to ensure that he is voiding completely. Ideally he should be continued on terazocin 5 mg daily but if this is not on the hospital formulary alternative will be tamsulosin 0.4 mg daily. Current Visit: Yes Status: Acute Code(s): R33.9 - RETENTION OF URINE, UNSPECIFIED SNOMED Code(s): 426609771
--- NOTE | 2017-05-17 21:20 | HP ---
HISTORY AND PHYSICAL DATE OF SERVICE: 05/17/2017. CHIEF COMPLAINT: Shortness of breath and cough. HISTORY OF PRESENT ILLNESS: This 66-year-old gentleman with past medical history of asthma, COPD, emphysema , being followed by Dr. Monsalve in the outpatient setting, was complaining of increased shortness of breath for the last several days. Patient came to the ER about 2 days ago and the patient was offered admission but left the hospital against medical advice. Currently the patient has increasing shortness of breath so the patient came back to the ER and was admitted for further evaluation and treatment. The patient is currently saturating 100% on 15% non-rebreather mask. The patient is extremely short of breath. There is no history of fevers or rigors. No headache or loss of consciousness or seizures. A chest x-ray showed COPD and possible atelectatic changes in the right upper lobe also. No history of fever or rigors. Prior to admission, patient also has significant urinary retention. A Hill catheter could not be passed. PAST MEDICAL HISTORY: History of COPD, history of asthma, history of emphysema. MEDICATIONS: 1. Buddy-Dur 300 mg p.o. b.i.d. 2. Hytrin 5 mg p.o. at bedtime. 3. Ranitidine 150 mg p.o. daily. 4. Levaquin 500 mg p.o. daily. 5. [place] 7.5, every 8 hours p.r.n. 6. Unisom 25 mg at bedtime p.r.n. 7. 25 mg p.o. daily. 8. Ventolin 2.5 q.i.d. ALLERGIES: None. SOCIAL HISTORY: History of smoking continued ongoing. Occasional alcohol intake. REVIEW OF SYSTEMS: ENT: No diminished vision or hearing. CARDIOVASCULAR: As mentioned earlier. GI: No nausea or vomiting. : No dysuria. NERVOUS SYSTEM: No numbness or weakness. ALLERGIC: No asthma or hayfever. MUSCULOSKELETAL: As mentioned. DERMATOLOGY: As mentioned. ENDOCRINE: No history of diabetes or hypothyroidism. CONSTITUTIONAL: As mentioned. PSYCHIATRY: As mentioned. PHYSICAL EXAMINATION: VITAL SIGNS: Pulse 72, blood pressure 140/47, respirations 20, temperature 98.9 , pulse ox 100% on 15 L nasal cannula. HEENT: Conjunctivae normal. Oral mucosa moist. NECK: No jugular venous distention. No lymph node enlargement. CARDIOVASCULAR: S1 and S2 muffled. LUNGS: Breath sounds diminished at the bases. Few scattered rhonchi. Expiratory wheezing also present. ABDOMEN: Soft, nontender. No mass palpable. LEGS: No edema, no swelling. NERVOUS SYSTEM: Higher functions as mentioned earlier. Moves all four limbs. LYMPHATICS: No lymph node. SKIN: No ulcers, rash or bleeding. LABS: CBC within normal limits. ABGs noted. Sodium 130. ASSESSMENT: 1. Chronic obstructive pulmonary disease acute exacerbation with acute hypoxic respiratory failure. 2. Urinary retention. 3. History of asthma and chronic obstructive pulmonary disease. 4. Continued ongoing nicotine dependence. RECOMMENDATIONS AND DISCUSSION: In this 66-year-old gentleman who presented with multiple complex medical issues , we will monitor the patient closely, continue the current management. Continue with bronchodilators and steroids. Monitor blood sugars closely. Otherwise resume the home medications. DVT prophylaxis. Proton pump inhibitors. Smoking cessation advised. Prognosis guarded because of multiple complex medical issues. Further recommendations to follow. MMODL / IJN: [id number] / MTDTresa
[2017-05-17] MEDS ORDERED: FUROSEMIDE 10 MG/ML 4 ML VIAL IV STA (21:32)
[2017-05-17] MEDS ORDERED: methylPREDNISolone SOD SUCCI 125 MG/2 ML VIAL IV STA (21:33)
[2017-05-17 22:29] LABS: Glucose,Whole Blood 137 mg/dL (75-99)
--- NOTE | 2017-05-17 22:47 | XR ---
EXAMINATION TYPE: XR chest 1V portable DATE OF EXAM: 05/17/2017 COMPARISON: Today HISTORY: Respiratory distress TECHNIQUE: Single frontal view of the chest is obtained. FINDINGS: There are bulky pulmonary crystal. Heart size is normal. There is no gross heart failure. The re is pulmonary hyperinflation. There is some pleural thickening and infiltrate in both upper lobes a t the lung apices. IMPRESSION: COPD and pulmonary fibrosis. Changes of pulmonary hypertension. Normal heart. No change compared to exam earlier today at 12:00 PM.
[2017-05-17 23:25] LABS: ABG Base Excess -2.5 mmol/L; ABG HCO3 23 mmol/L (21-25); ABG Oxygen Saturation 99.4 % (94-97); ABG PCO2 40 mmHg (35-45); ABG PH 7.37 (7.35-7.45); ABG PO2 187 mmHg (83-108); ABG TCO2 24 mmol/L (19-24)
[2017-05-17] MEDS ORDERED: NALOXONE 0.4 MG/ML 1 ML VIAL IV PRN (23:48)
[2017-05-18] MEDS: methylPREDNISolone SOD SUCCI 125 MG/2 ML VIAL IV SCH ×4 (01:25→17:24)
[2017-05-18 01:45] LABS: Appearance,Urine Clear (Clear); Bilirubin,Urine Negative (Negative); Blood,Urine Small (Negative); Color,Urine Colorless; Glucose,Urine (UA) Negative (Negative); Ketones,Urine Negative (Negative); Leukocyte Esterase,Urine Negative (Negative); Mucus,Urine Rare /hpf; Nitrite,Urine Negative (Negative); Protein,Urine Negative (Negative); RBC,Urine 7 /hpf (0-5); Specific Gravity,Urine 1.006 (1.001-1.035); Squamous Epithelial Cell,Urine <1 /hpf (0-4); Urobilinogen,Urine <2.0 mg/dL (<2.0)
[2017-05-18 05:20] LABS: Basophils % (A) 0 %; Eosinophils % (A) 0 %; HCT 44.8 % (39.0-53.0); HGB 15.1 gm/dL (13.0-17.5); Lymphocytes # (A) 0.4 k/uL (1.0-4.8); Lymphocytes % (A) 3 %; MCHC 33.6 g/dL (31.0-37.0); MCV 98.2 fL (80.0-100.0); Mean Platelet Volume 7.2; Monocytes # (A) 0.2 k/uL (0-1.0); Monocytes % (A) 2 %; Neutrophils % (A) 95 %; Platelet Count 206 k/uL (150-450); RBC 4.57 m/uL (4.30-5.90); RDW 12.8 % (11.5-15.5); WBC 12.7 k/uL (3.8-10.6)
[2017-05-18 05:34] LABS: Anion Gap 17 mmol/L; Blood Urea Nitrogen 13 mg/dL (9-20); Calcium 8.9 mg/dL (8.4-10.2); Carbon Dioxide 23 mmol/L (22-30); Chloride 93 mmol/L (98-107); Cholesterol 128 mg/dL (<200); Glucose 150 mg/dL (74-99); HDL Cholesterol 71 mg/dL (40-60); LDL Cholesterol,Calculated 50 mg/dL (0-99); Magnesium 1.5 mg/dL (1.6-2.3); Phosphorus 4.2 mg/dL (2.5-4.5); Potassium 3.7 mmol/L (3.5-5.1); Sodium 133 mmol/L (137-145); Triglycerides 37 mg/dL (<150)
--- NOTE | 2017-05-18 07:21 | XR ---
EXAMINATION TYPE: XR chest 1V DATE OF EXAM: 05/18/2017 HISTORY: SOB. REFERENCE: Previous study dated 05/17/2017. FINDINGS: The lungs are markedly overinflated. There is some scarring in the right upper lobe. The he art is not enlarged. Pleural spaces are clear. IMPRESSION: MARKED CHANGES OF COPD.
[2017-05-18] MEDS ORDERED: PANTOPRAZOLE 40 MG TABLET PO SCH (07:30)
[2017-05-18 07:41] LABS: Glucose,Whole Blood 132 mg/dL (75-99)
[2017-05-18] MEDS ORDERED: POTASSIUM CHLORIDE ER 20 MEQ TAB.ER PO SCH ×2 (08:00→13:00)
[2017-05-18] MEDS ORDERED: FUROSEMIDE 10 MG/ML 4 ML VIAL IV STA (08:02)
[2017-05-18] MEDS: INSULIN ASPART 100 UNIT/ML 1 ML 10 ML VIAL SQ SCH ×4 (08:13→20:55)
[2017-05-18] MEDS: MAGNESIUM SULFATE-D5W PMX 1 GM in DEXTROSE/WATER 1 100ML.BAG IVPB SCH ×2 (08:13→09:44)
[2017-05-18] MEDS: NICOTINE 14MG/24HR PATCH TRANSDERM SCH (08:14)
[2017-05-18] MEDS: FAMOTIDINE 20 MG TAB PO SCH (08:14)
[2017-05-18] MEDS: TAMSULOSIN 0.4 MG CAP.ER.24H PO SCH (08:14)
[2017-05-18] MEDS: THEOPHYLLINE 24 HOUR 300 MG CAP.ER.24H PO SCH ×2 (08:15→22:13)
[2017-05-18] MEDS: BUDESONIDE 1 MG/2 ML NEBU INHALATION SCH ×2 (08:55→20:07)
[2017-05-18] MEDS: FORMOTEROL FUMARATE 20 MCG/2 ML NEBU INHALATION SCH ×2 (08:55→20:07)
[2017-05-18] MEDS: IPRATROPIUM-ALBUTEROL 3 ML NEB INHALATION SCH ×4 (08:56→20:07)
[2017-05-18] MEDS ORDERED: ATENOLOL 25 MG TAB PO SCH (09:00)
[2017-05-18] MEDS: ALPRAZolam 0.5 MG TAB PO PRN ×2 (09:21→17:40)
[2017-05-18] MEDS: HEPARIN SODIUM,PORCINE 5,000 UNIT/ML 1 ML VIAL SQ SCH ×2 (09:22→22:13)
[2017-05-18] MEDS: ASPIRIN 325 MG TAB PO SCH (10:40)
[2017-05-18 11:34] LABS: Glucose,Whole Blood 161 mg/dL (75-99)
--- NOTE | 2017-05-18 12:28 | P.CNPUL ---
History of Present Illness Consult date: 05/18/17 Reason for consult: dyspnea, COPD History of present illness: A 66-year-old male patient with known history of severe COPD and the patient has been in a catabolic state for many years and he continues to smoke cigarettes on a daily basis. The patient has significant limitation in exercise capacity and the patient's baseline FEV1 is 33% of predicted with known severe hyperinflation on his chest x-rays as evident in his previous films from the office. The patient was doing relatively okay and his last evaluation my office was in November 2016. The patient came into the emergency department yesterday with worsening shortness of breath. He was in the ED approximately 2 days prior and the patient was having episodes of dysarthria and some weakness in his left face and slurred speech. He was also having some on and off weakness in his left upper and left lower extremity. He was having difficulty with ambulation due to increased weakness lower extremities bilaterally. The patient was seen in emergency department and the CAT scan of the brain was done that showed no acute abnormalities on 05/13/2017 and it showed stable atrophy with chronic small vessel ischemic changes. No hemorrhage was evident. The patient was discharged home and within next 24-48 hours his condition got worse and had to come back with altered mentation, left upper and left lower extremity weakness, left facial weakness, and slurred speech. Meanwhile his breathing got worse and he is actively bronchospastic and wheezy and short of breath. A blood gases was done emergency department and it showed no evidence of any hypercapnic respiratory failure. The patient was very anxious. He was brought into the ICU where he was given [id number] breathing treatments and he was started on IV Solu-Medrol high-dose. This morning I was able to put him on a BiPAP at a pressure of 8 over 4 cm of water. He is unable to tolerate higher pressures. He has excessive respiratory secretions. He is still able to swallow appropriately. I examined his swallow at the bedside and the patient did well. He has no chest pain. Is a congested cough. He has unable to speak of. This is in any rate his speech is garbled and slurred. He understands and comprehends very well. He is a bit anxious. He required Ativan overnight and currently will placed on Xanax. He is on oral aspirin. CAT scan of the brain was not repeated as the patient was unable to lay down flat because of his worsening shortness of breath and increased anxiety. Doppler of the carotids was done and showed 50% stenosis bilaterally in the internal carotid artery. The patient is currently not ICU and the family is at the bedside. Patient was seen by neurology yesterday. Suspect an acute right MCA distribution CVA. Review of Systems Constitutional Constitutional: no fever, no night sweats, no significant weight gain, weight loss (20 lbs), exercise intolerance Eyes Eyes: no dry eyes, no vision change, no irritation ENMT Ears: no ear pain, difficulty hearing Nose: no frequent nosebleeds, no nose problems, no sinus problems Mouth/Throat: no sore throat, no bleeding gums, no snoring, no dry mouth, no mouth ulcers, no oral abnormalities, no teeth problems (edentulous) Cardiovascular Cardiovascular: no chest pain, no arm pain on exertion, no shortness of breath when lying down, no palpitations, no known heart murmur, shortness of breath when walking Respiratory Respiratory: Increased dyspnea, cough, wheezing, shortness of breath, bronchospasm and marked limitation of exercise capacity. At times is using also excessive muscle breathing. Gastrointestinal Gastrointestinal: no abdominal pain, no nausea, no vomiting, no constipation, normal appetite, no diarrhea, not vomiting blood, no dyspepsia, no GERD Genitourinary Genitourinary: no incontinence, no hematuria, no increased frequency, difficulty urinating Musculoskeletal Musculoskeletal: no muscle aches, no muscle weakness, no arthralgias/joint pain , no back pain, no swelling in the extremities Integumentary Skin: no abnormal mole, no jaundice, no rashes, no laceration Neurologic Neurologic: Slurred speech, left-sided weakness, left facial weakness, difficulty mobility. He is still able to swallow without any major problems. He is understanding well. His increased anxious Psychiatric Psych: no depression, no sleep disturbances, feeling safe in a relationship, no alcohol abuse,anxiety, no hallucinations, no suicidal thoughts Endocrine Endocrine: fatigue Hematologic/Lymphatic Hematologic/Lymphatic no swollen glands, no bruising, no excessive bleeding Allergic/Immunologic Allergy/Immunologic: no runny nose, no sinus pressure, no itching, no hives, no frequent sneezing Past Medical History Past Medical History: Asthma, COPD, Hypertension Additional Past Medical History / Comment(s): Severe COPD with a baseline FEV1 of 34% of predicted, cachexia with ongoing weight loss, hypertension, BPH, abnormal weight loss, smoker History of Any Multi-Drug Resistant Organisms: None Reported Past Surgical History: No Surgical Hx Reported Past Psychological History: No Psychological Hx Reported Smoking Status: Current every day smoker ([id number] smoking history, at one point she was smoking up to 4 packs a day. He drinks whiskey 2 drinks a day. No history of IV drugs. He has also worked in [employer].) Past Alcohol Use History: Occasional Past Drug Use History: None Reported Medications and Allergies Home Medications Medication Instructions Recorded Confirmed Type Albuterol Nebulized [Ventolin 2.5 mg INHALATION RT-QID 05/13/17 05/17/17 History Nebulized] Atenolol 25 mg PO DAILY 05/13/17 05/17/17 History Levofloxacin [Levaquin] 500 mg PO DAILY 05/13/17 05/17/17 History Ranitidine HCl 150 mg PO DAILY 05/13/17 05/17/17 History Terazosin [Hytrin] 5 mg PO HS 05/13/17 05/17/17 History Theophylline 12 Hour [Buddy-Dur] 300 mg PO BID 05/13/17 05/17/17 History Doxylamine Succinate [Unisom] 25 mg PO HS PRN 05/17/17 05/17/17 History HYDROcodone/APAP 7.5-325MG [[place] 1 tab PO Q8H PRN 05/17/17 05/17/17 History 7.5-325] Allergies Allergy/AdvReac Type Severity Reaction Status Date / Time No Known Allergies Allergy Verified 05/17/17 12:42 Physical Exam Vitals: Vital Signs Temp Pulse Pulse Resp BP BP Pulse Ox 05/18/17 11:54 97 05/18/17 11:44 98 05/18/17 11:00 110 H 17 103/67 97 05/18/17 10:00 102 H 20 95/65 97 05/18/17 09:30 118 H 21 113/66 98 05/18/17 09:29 99 05/18/17 09:07 111 H 05/18/17 09:00 102 H 28 H 108/69 97 05/18/17 08:59 112 H 05/18/17 08:30 106 H 21 97/67 95 05/18/17 08:00 97.5 F L 135 H 40 H 119/74 94 L 05/18/17 07:00 83 14 111/82 99 05/18/17 06:30 96 19 110/75 98 05/18/17 06:00 75 14 105/72 97 05/18/17 05:30 91 21 110/72 98 05/18/17 05:00 73 14 107/74 98 05/18/17 04:30 77 15 118/75 99 05/18/17 04:00 97.4 F L 100 28 H 116/79 96 05/18/17 03:46 97 05/18/17 03:30 102 H 41 H 121/77 98 05/18/17 03:00 129 H 29 H 112/81 86 L 05/18/17 02:30 95 18 107/75 98 05/18/17 02:00 102 H 16 102/75 97 05/18/17 01:30 106 H 15 111/76 97 05/18/17 01:00 98 15 113/74 98 05/18/17 00:30 97.5 F L 113 H 17 102/70 98 05/18/17 00:00 104 H 28 H 101/78 98 05/17/17 23:30 112 H 16 93/64 98 05/17/17 23:25 151 H 20 81/60 99 05/17/17 23:00 133 H 20 99 05/17/17 22:30 97.7 F 148 H 22 107/74 98 05/17/17 21:35 132 H 30 H 188/99 78 L 05/17/17 21:30 109 H 32 H 61 L 05/17/17 20:35 89 05/17/17 20:25 89 05/17/17 20:07 89 96 05/17/17 20:00 98.3 F 100 16 149/86 97 05/17/17 16:07 92 05/17/17 15:37 96.9 F L 72 20 148/71 100 05/17/17 14:14 96.9 F L 85 18 108/59 05/17/17 13:36 93 05/17/17 13:35 97.8 F 74 24 121/78 100 05/17/17 13:23 89 Intake and Output 05/17/17 05/18/17 05/18/17 22:59 06:59 14:59 Intake Total 460 330 Output Total 1999 1914 1139 Balance -1999 -1724 -520 Intake: IV 400 330 0.9 at KVO 10 Sodium Chloride 0.9% 1, 400 120 000 ml @ 100 mls/hr IV . Q10H STA Rx#:[id number] magnesium 200 Oral 60 Output: Urine 1999 1914 1139 Uretheral (Hill) 1000 Other: Voiding Method Indwelling Catheter Indwelling Catheter # Voids 1 Weight 50.5 kg General Appearance no diaphoresis, in moderate to severe degree of respiratory distress respiratory distress, speech is interrupted by breaths, he has dyspnea , no pallor, cachectic, appears ill HEENT no pursed lip breathing, no jugular venous distention, no mucous membrane cyanosis, no perioral cyanosis, mallampati classification: class 1 (edentulous) Chest retractions, sternocleidomastoid muscle contractions, nsupraclavicular retractions, nintercostal retractions, ndecreased air movement, no rhonchi, hyperinflation, (normal) adventitious sounds: rales / crackles: bilaterally: midlung leger, barrel chest, prolonged expiratory wheezing, decreased air movement, actively bronchospastic and wheezy Heart no right ventricular heave, no distant heart sounds, no s3 gallop, (normal ) jugular vein: jugular venous distention: by 0cm, (normal) jugular vein GI bowel sounds: hyperactive (borborygmi), bowel sounds: diminished or absent Extremities no cyanosis, no clubbing, no edema Neurologic no decreased mental status, no somnolence, no confusion, the patient has slurred speech. Patient has left facial weakness. Pupils are equal reactive to light. Motor function is +4/5 in the left upper and lower extremity , +5 over 5 in the right upper and lower extremity. Babinski is equivocal Assisstive Devices: ambulates with no assitive devices Gait and Mobility: Unable to assess because of his acute stroke. Skin General Appearance normal, (normal) normal except as noted Results - Laboratory Findings CBC and BMP: 05/18/17 04:16 05/18/17 04:16 ABG ABG pH 7.37 (7.35-7.45) 05/17/17 23:20 ABG pCO2 40 mmHg (35-45) 05/17/17 23:20 ABG pO2 187 mmHg (83-108) H 05/17/17 23:20 ABG O2 Saturation 99.4 % (94-97) H 05/17/17 23:20 PT/INR, D-dimer PT 10.2 sec (9.0-12.0) 05/17/17 11:10 INR 1.0 (<1.2) 05/17/17 11:10 D-Dimer 0.25 mg/L FEU (<0.60) 05/17/17 11:10 Abnormal lab findings: Abnormal Labs 05/17/17 05/17/17 05/17/17 11:10 11:10 11:10 WBC Neutrophils # Lymphocytes # 0.8 L ABG pO2 ABG Total CO2 ABG O2 Saturation Sodium 131 L Chloride 93 L Creatinine 0.65 L Glucose POC Glucose (mg/dL) Magnesium Total Creatine Kinase 45 L HDL Cholesterol Urine Blood Urine RBC Urine Mucus 05/17/17 05/17/17 05/17/17 11:25 22:27 23:20 WBC Neutrophils # Lymphocytes # ABG pO2 >400 H 187 H ABG Total CO2 25 H ABG O2 Saturation 100.0 H 99.4 H Sodium Chloride Creatinine Glucose POC Glucose (mg/dL) 137 H Magnesium Total Creatine Kinase HDL Cholesterol Urine Blood Urine RBC Urine Mucus 05/18/17 05/18/17 05/18/17 01:25 04:16 04:16 WBC 12.7 H Neutrophils # 12.0 H Lymphocytes # 0.4 L ABG pO2 ABG Total CO2 ABG O2 Saturation Sodium 133 L Chloride 93 L Creatinine 0.60 L Glucose 150 H POC Glucose (mg/dL) Magnesium 1.5 L Total Creatine Kinase HDL Cholesterol 71 H Urine Blood Small H Urine RBC 7 H Urine Mucus Rare H 05/18/17 05/18/17 07:39 11:30 WBC Neutrophils # Lymphocytes # ABG pO2 ABG Total CO2 ABG O2 Saturation Sodium Chloride Creatinine Glucose POC Glucose (mg/dL) 132 H 161 H Magnesium Total Creatine Kinase HDL Cholesterol Urine Blood Urine RBC Urine Mucus - Diagnostic Findings Chest x-ray: image reviewed Assessment and Plan Plan: Assessment 1 acute hypoxic history failure secondary to COPD exacerbation. Chest x-ray shows hyperinflation without evidence of any acute pulmonary infiltration or pneumonia. Patient is currently on BiPAP at a pressure of 8 over 4 cm of water. He was quite short of breath and using excessive muscle breathing and based on that he was supported with BiPAP 2 severe COPD at baseline with an FEV1 of 33% of predicted 3 acute right MCA distribution CVA with slurred speech, left facial weakness and left upper and left lower extremity weakness. CAT scan of the brain is to follow 4 cachexia with ongoing abnormal weight loss 5 smoker 6 hypertension 7 BPH Plan In terms of his COPD exacerbation we'll put the patient on a combination of bronchodilators, steroids, and antibiotics. We'll also supported with a BiPAP at a pressure of 8 over 4 cm of water. May end up being intubated if he is unable to tolerate this and the patient's reading gets worse. In regards to his CVA, carotid Dopplers were noted. Echocardiogram is still pending. Put the patient on oral aspirin. He should be able to take his oral medication as the patient is still has a preserved cough and swallow reflex. MRI of the brain is to be followed at a later stage. The patient is out of the window for any thrombolytics and the patient is not a candidate for any TPA treatment in regards to his acute CVA. We will consult neurology. Hill catheter is in place. We'll continue to follow and make further recommendations based on his progress. Prognosis poor specially with his severe debilitated and cachectic state even prior to this current admission.
[2017-05-18] MEDS: ACETYLCYSTEINE 800 MG/4 ML VIAL INHALATION SCH (14:10)
[2017-05-18] MEDS: LEVOFLOXACIN 500MG-D5W PMX 500 MG in DEXTROSE/WATER 1 100ML.BAG IVPB SCH (15:29)
--- NOTE | 2017-05-18 16:23 | P.PN ---
Subjective Progress Note Date: 05/18/17 Principal diagnosis: COPD exacerbation Patient is a 66-year-old male with a known history of asthma, COPD, emphysema came to ER with complaints of worsening shortness of breath for the past few days. Patient came to ER about 2 days prior to admission and was having left- sided on of weakness and facial droop. Patient had CT head which showed no acute process. Patient wanted to be sent home at the time and was having worsening shortness of breath and came back to the hospital for further evaluation and treatment. Patient was easily on 100% nonrebreather and was transferred to ICU. Patient otherwise currently on BiPAP machine. Pulmonary and neurology is following. Chest x-ray on admission showed COPD and possible atelectatic changes in the right upper lobe also. Patient is being continued currently on IV steroids and breathing treatments. Repeat CT head could not be ordered due to patient unable to lie flat. Neurology recommended MRI of the brain Repeat chest x-ray showed severe COPD changes today. Active Medications Generic Name Dose Route Start Last Admin Trade Name Freq PRN Reason Stop Dose Admin Hydrocodone Bitart/Acetaminophen 1 each 05/17/17 13:10 05/18/17 03:58 [place] 7.5-325 PO 1 each Q8H PRN Administration Pain Acetylcysteine 200 mg 05/18/17 13:30 05/18/17 14:10 Mucomyst INHALATION 200 mg RT-DAILY DUARTE Administration Albuterol/Ipratropium 3 ml 05/17/17 13:10 Duoneb 0.5 Mg-3 Mg/3 Ml Soln INHALATION RT-QID PRN Shortness Of Breath Or Wheezing Albuterol/Ipratropium 3 ml 05/17/17 16:00 05/18/17 14:10 Duoneb 0.5 Mg-3 Mg/3 Ml Soln INHALATION 3 ml RT-QID DUARTE Administration Alprazolam 0.5 mg 05/18/17 09:04 05/18/17 09:21 Xanax PO 0.5 mg TID PRN Administration Anxiety Aspirin 325 mg 05/18/17 10:15 05/18/17 10:40 Aspirin PO 325 mg DAILY DUARTE Administration Atenolol 25 mg 05/18/17 09:00 05/18/17 10:15 Tenormin PO Not Given DAILY DUARTE Budesonide 1 mg 05/17/17 14:00 05/18/17 08:55 Pulmicort INHALATION 1 mg RT-BID DUARTE Administration Doxazosin Mesylate 4 mg 05/17/17 21:00 05/17/17 20:26 Cardura PO 4 mg HS DUARTE Administration Famotidine 20 mg 05/17/17 13:15 05/18/17 08:14 Pepcid PO 20 mg DAILY DUARTE Administration Formoterol Fumarate 20 mcg 05/17/17 14:00 05/18/17 08:55 Perforomist INHALATION 20 mcg RT-BID DUARTE Administration Guaifenesin 1,200 mg 05/18/17 18:00 Mucinex PO Q12H DUARTE Heparin Sodium (Porcine) 5,000 unit 05/17/17 13:15 05/18/17 09:22 Heparin SQ 5,000 unit Q12HR DUARTE Administration Levofloxacin 500 mg/ IV 100 mls @ 100 mls/hr 05/18/17 14:00 05/18/17 15:29 Solution IVPB 100 mls/hr Q24H DUARTE Administration Insulin Aspart 0 unit 05/18/17 07:30 05/18/17 12:19 Novolog SQ 3 unit ACHS DUARTE Administration Protocol Methylprednisolone Sodium Succinate 100 mg 05/18/17 10:00 05/18/17 09:22 Solu-Medrol IV 100 mg Q6HR DUARTE Administration Naloxone HCl 0.2 mg 05/17/17 23:48 Narcan IV Q2M PRN Opioid Reversal Nicotine 1 patch 05/17/17 13:15 05/18/17 08:14 Habitrol 14mg/24hr Patch TRANSDERM 1 patch DAILY DUARTE Administration Pantoprazole Sodium 40 mg 05/18/17 07:30 05/18/17 08:13 Protonix PO 40 mg AC-BRKFST DUARTE Administration Tamsulosin HCl 0.4 mg 05/18/17 08:30 05/18/17 08:14 Flomax PO 0.4 mg PC-BRKFST DUARTE Administration Theophylline 300 mg 05/17/17 21:00 05/18/17 08:15 Buddy-24 PO 300 mg BID DUARTE Administration Objective - Vital Signs Vital signs: Vital Signs Temp 97 F L 05/18/17 16:00 Pulse 135 H 05/18/17 16:00 Resp 19 05/18/17 16:00 BP 94/64 05/18/17 16:00 Pulse Ox 96 05/18/17 16:00 Intake & Output 05/17/17 05/18/17 05/18/17 18:59 06:59 18:59 Intake Total 460 630 Output Total 3915 1468 Balance -3455 -886 Weight 47.627 kg 50.5 kg Intake: IV 400 380 0.9 at KVO 60 Sodium Chloride 0.9% 1, 400 120 000 ml @ 100 mls/hr IV . Q10H STA Rx#:[id number] magnesium 200 Oral 60 250 Output: Urine 3915 1468 Uretheral (Hill) 1000 Other: Voiding Method Indwelling Catheter Indwelling Catheter # Voids 1 - Exam PHYSICAL EXAMINATION: Patient is lying in the bed comfortably, no acute distress, awake alert and oriented. Currently on BiPAP. HEENT: Normocephalic. Neck is supple. Pupils reactive. Nostrils clear. Oral cavity is moist. Ears reveal no drainage. Neck reveals no JVD, carotid bruits, or thyromegaly. CHEST EXAMINATION: Trachea is central. Symmetrical expansion. Barrel chest. Bilateral diminished breath sounds and reveals. Expiratory wheezing. CARDIAC: Normal S1, S2 with no gallops. No murmurs ABDOMEN: Soft. Bowel sounds normal. No organomegaly. No abdominal bruits. Extremities: reveal no edema. No clubbing or cyanosis Neurologically awake, alert, oriented x3 with well-coordinated movements. Left- sided weakness with motor strength 3 / 5 Skin: No rash or skin lesions. Psychiatric: Cooperative. Could not be assessed completely Musculoskeletal: No joint swelling or deformity. Normal range of motion. - Labs CBC & Chem 7: 05/18/17 04:16 05/18/17 11:43 Labs: Abnormal Lab Results - Last 24 Hours (Table) 05/17/17 05/17/17 05/18/17 Range/Units 22:27 23:20 01:25 WBC (3.8-10.6) k/uL Neutrophils # (1.3-7.7) k/uL Lymphocytes # (1.0-4.8) k/uL ABG pO2 187 H (83-108) mmHg ABG O2 Saturation 99.4 H (94-97) % Sodium (137-145) mmol/L Chloride (98-107) mmol/L Creatinine (0.66-1.25) mg/dL Glucose (74-99) mg/dL POC Glucose (mg/dL) 137 H (75-99) mg/dL Magnesium (1.6-2.3) mg/dL HDL Cholesterol (40-60) mg/dL Urine Blood Small H (Negative) Urine RBC 7 H (0-5) /hpf Urine Mucus Rare H (None) /hpf 05/18/17 05/18/17 05/18/17 Range/Units 04:16 04:16 07:39 WBC 12.7 H (3.8-10.6) k/uL Neutrophils # 12.0 H (1.3-7.7) k/uL Lymphocytes # 0.4 L (1.0-4.8) k/uL ABG pO2 (83-108) mmHg ABG O2 Saturation (94-97) % Sodium 133 L (137-145) mmol/L Chloride 93 L (98-107) mmol/L Creatinine 0.60 L (0.66-1.25) mg/dL Glucose 150 H (74-99) mg/dL POC Glucose (mg/dL) 132 H (75-99) mg/dL Magnesium 1.5 L (1.6-2.3) mg/dL HDL Cholesterol 71 H (40-60) mg/dL Urine Blood (Negative) Urine RBC (0-5) /hpf Urine Mucus (None) /hpf 05/18/17 Range/Units 11:30 WBC (3.8-10.6) k/uL Neutrophils # (1.3-7.7) k/uL Lymphocytes # (1.0-4.8) k/uL ABG pO2 (83-108) mmHg ABG O2 Saturation (94-97) % Sodium (137-145) mmol/L Chloride (98-107) mmol/L Creatinine (0.66-1.25) mg/dL Glucose (74-99) mg/dL POC Glucose (mg/dL) 161 H (75-99) mg/dL Magnesium (1.6-2.3) mg/dL HDL Cholesterol (40-60) mg/dL Urine Blood (Negative) Urine RBC (0-5) /hpf Urine Mucus (None) /hpf Microbiology - Last 24 Hours (Table) 05/18/17 01:25 Urine Culture - Preliminary Urine,Catheterized Assessment and Plan Assessment: Acute hypoxic respiratory failure secondary to COPD exacerbation. Currently on BiPAP Acute COPD exacerbation Severe COPD with FEV1 of 33% of predicted Left-sided weakness with possible acute CVA, right MCA distribution. Repeat CT head could not be done due to respiratory status History of smoking Hypertension BPH Moderate to severe protein calorie malnutrition DVT prophylaxis Plan: Patient be continued on IV steroids, breathing treatments and BiPAP. Carotid duplex and 2-D echocardiogram was ordered. Patient will be continued on aspirin. MRI of the brain once breathing status improves. We will continue the current management and follow up closely. Prognosis is guarded with advanced COPD and multiple other medical problems. Discussed with his family at bedside in detail. Time with Patient: Greater than 30
[2017-05-18 17:15] LABS: Glucose,Whole Blood 152 mg/dL (75-99)
[2017-05-18] MEDS: guaiFENesin 600 MG TABLET.ER PO SCH (17:19)
[2017-05-18 18:22] LABS: ABG Base Excess 5.9 mmol/L; ABG HCO3 30 mmol/L (21-25); ABG Oxygen Saturation 96.2 % (94-97); ABG PCO2 46 mmHg (35-45); ABG PH 7.43 (7.35-7.45); ABG PO2 80 mmHg (83-108); ABG TCO2 32 mmol/L (19-24)
--- NOTE | 2017-05-18 18:35 | P.PN ---
Subjective Progress Note Date: 05/18/17 This patient is a 66-year-old male who was admitted to hospital yesterday with severe COPD and respiratory distress. Patient's neurological evaluation yesterday revealed him to have evidence of significant left-sided hemiparesis with slurred speech. He is finding suggested possibility of acute right hemispheric stroke. His initial computed tomography scan of the brain failed to reveal acute findings. CAT scan did show evidence of chronic small vessel ischemic changes which are stable from previous CAT scan done on 05/13/2017. Patient apparently developed worsening respiratory distress and was transferred to the intensive care unit last night. He is now evaluated in the ICU. He still demonstrates left-sided hemiparesis as well as mild expressive aphasia which is slightly improved. We have recommended a repeat computed tomography scan of the brain to be done but this cannot be completed at this time as a patient cannot lay flat due to his compromise rest Laurent status. Patient underwent carotid Doppler study which showed only 50% stenosis bilaterally in the internal carotid artery. Family was at bedside and they have noticed slight improvement with his speech today. He still does demonstrate left-sided hemiparesis. Patient has been placed on BiPAP most of today. We are waiting further recommendations from pulmonary medicine regarding his overall pulmonary status some. He does have severe COPD and a moderate degree of cachexia which is complicating his medical course. At this time we will continue close neurological follow-up of this patient in the intensive care unit. His prognosis remains guarded. Case was discussed at length with the patient's and daughter at bedside in the ICU today. All of their questions were answered. They're aware of his guarded condition. Objective - Vital Signs Vital signs: Vital Signs Temp 97.4 F L 05/18/17 12:00 Pulse 111 H 05/18/17 14:26 Resp 22 05/18/17 14:00 BP 95/68 05/18/17 14:00 Pulse Ox 97 05/18/17 14:00 Intake & Output 05/17/17 05/18/17 05/18/17 18:59 06:59 18:59 Intake Total 460 610 Output Total 3915 1420 Balance -3455 -810 Weight 47.627 kg 50.5 kg Intake: IV 400 360 0.9 at KVO 40 Sodium Chloride 0.9% 1, 400 120 000 ml @ 100 mls/hr IV . Q10H [facility] Rx#:[id number] magnesium 200 Oral 60 250 Output: Urine 3915 1420 Uretheral ([place]) 1000 Other: Voiding Method Indwelling Catheter Indwelling Catheter # Voids 1 - Exam Physical Examination: PHYSICAL EXAMINATION: Patient is resting comfortably in bed. Patient is examined today in the intensive care unit. He is currently being treated with BiPAP. VITAL SIGNS: Blood pressure is [112/65]. Heart rate is [110]. Respiration is [19 ]. Temperature is [97.4]. HEENT: Head is atraumatic, neck is supple, there were no carotid bruits. CHEST: Lungs are clear to auscultation and percussion. CARDIAC: S1, S2 normal rate and rhythm. There is no murmur. ABDOMEN: Soft and nontender. Bowel sounds are present. EXTREMITIES: There is no pedal edema. Peripheral pulses are present. Neurological examination: Patient's neurological examination is unchanged from yesterday. He has left- sided hemiparesis with mild left facial droop and slurred speech. - Labs CBC & Chem 7: 05/18/17 04:16 05/18/17 11:43 Labs: Abnormal Lab Results - Last 24 Hours (Table) 05/17/17 05/17/17 05/18/17 Range/Units 22:27 23:20 01:25 WBC (3.8-10.6) k/uL Neutrophils # (1.3-7.7) k/uL Lymphocytes # (1.0-4.8) k/uL ABG pO2 187 H (83-108) mmHg ABG O2 Saturation 99.4 H (94-97) % Sodium (137-145) mmol/L Chloride (98-107) mmol/L Creatinine (0.66-1.25) mg/dL Glucose (74-99) mg/dL POC Glucose (mg/dL) 137 H (75-99) mg/dL Magnesium (1.6-2.3) mg/dL HDL Cholesterol (40-60) mg/dL Urine Blood Small H (Negative) Urine RBC 7 H (0-5) /hpf Urine Mucus Rare H (None) /hpf 05/18/17 05/18/17 05/18/17 Range/Units 04:16 04:16 07:39 WBC 12.7 H (3.8-10.6) k/uL Neutrophils # 12.0 H (1.3-7.7) k/uL Lymphocytes # 0.4 L (1.0-4.8) k/uL ABG pO2 (83-108) mmHg ABG O2 Saturation (94-97) % Sodium 133 L (137-145) mmol/L Chloride 93 L (98-107) mmol/L Creatinine 0.60 L (0.66-1.25) mg/dL Glucose 150 H (74-99) mg/dL POC Glucose (mg/dL) 132 H (75-99) mg/dL Magnesium 1.5 L (1.6-2.3) mg/dL HDL Cholesterol 71 H (40-60) mg/dL Urine Blood (Negative) Urine RBC (0-5) /hpf Urine Mucus (None) /hpf 05/18/17 Range/Units 11:30 WBC (3.8-10.6) k/uL Neutrophils # (1.3-7.7) k/uL Lymphocytes # (1.0-4.8) k/uL ABG pO2 (83-108) mmHg ABG O2 Saturation (94-97) % Sodium (137-145) mmol/L Chloride (98-107) mmol/L Creatinine (0.66-1.25) mg/dL Glucose (74-99) mg/dL POC Glucose (mg/dL) 161 H (75-99) mg/dL Magnesium (1.6-2.3) mg/dL HDL Cholesterol (40-60) mg/dL Urine Blood (Negative) Urine RBC (0-5) /hpf Urine Mucus (None) /hpf Microbiology - Last 24 Hours (Table) 05/18/17 01:25 Urine Culture - Preliminary Urine,Catheterized Assessment and Plan (1) Acute right arterial ischemic stroke, MCA (middle cerebral artery) Current Visit: Yes Status: Acute Code(s): I63.511 - CEREB INFRC D/T UNSP OCCLS OR STENOS OF RIGHT MID CEREB ART SNOMED Code(s): 834030641 (2) Aphasia Current Visit: Yes Status: Acute Code(s): R47.01 - APHASIA SNOMED Code(s) : 08928147 (3) Gait disorder Current Visit: Yes Status: Acute Code(s): R26.9 - UNSPECIFIED ABNORMALITIES OF GAIT AND MOBILITY SNOMED Code(s): 91012043 (4) Shortness of breath Current Visit: Yes Status: Acute Code(s): R06.02 - SHORTNESS OF BREATH SNOMED Code(s): 862075826 Plan: This patient is a 66-year-old male who was admitted to hospital with severe COPD and respiratory distress. He was seen in neurology consultation yesterday for altered mental status and left-sided hemiparesis. He underwent initial computed tomography scan of the brain which failed to reveal any evidence of acute stroke. His neurological findings yesterday suggested possible right hemispheric stroke. He was recommended to have a repeat MRI of the brain or computed tomography scan of the brain done for follow-up. He is unable to lay flat and the imaging studies have been placed on hold at this time until stress [place] status improves. Patient does have acute hypoxic rest Laurent failure and due to this reason was transferred yesterday to the intensive care unit. He is being evaluated in the ICU today and is currently on BiPAP treatment. Once he is stable in terms of his respiratory status we would recommend a follow -up computed tomography scan of the brain to be done for further evaluation of possible evolving right hemispheric stroke. This patient's clinical findings were reviewed today at bedside in the ICU with the patient's and daughter. All their questions were answered. They're aware of his guarded condition at this time. His overall prognosis at this time remains guarded.
[2017-05-18] MEDS ORDERED: PHENYLEPHRINE-0.9% NACL SYG 1 MG/10 ML SYRINGE ONE (18:50)
[2017-05-18] MEDS ORDERED: PROPOFOL 10 MG/ML 20 ML VIAL IV ONE (18:50)
[2017-05-18] MEDS: PROPOFOL 1,000 MG in EMPTY BAG 1 BAG IV SCH (19:11)
--- NOTE | 2017-05-18 19:39 | XR ---
EXAMINATION TYPE: XR chest 1V portable DATE OF EXAM: 05/18/2017 Comparison: Earlier today Clinical History: 66 year-old male tube placement Findings: ET tube tip is at the level of the medial clavicular heads. NG tube courses below the diaphragm. Hear t normal size. Biapical pleural parenchymal scarring with some upward hilar retraction suggesting upp er lung scarring and volume loss. Hyperinflation. Impression: 1. Satisfactory ET tube, tip at the level of the medial clavicular heads. 2. COPD and chronic parenchymal changes. No acute process seen.
[2017-05-18 20:03] LABS: ABG Base Excess 2.7 mmol/L; ABG HCO3 29 mmol/L (21-25); ABG PCO2 54 mmHg (35-45); ABG PH 7.33 (7.35-7.45); ABG PO2 >400 mmHg (83-108); ABG TCO2 30 mmol/L (19-24)
[2017-05-18] MEDS ORDERED: SODIUM CHLORIDE 0.9% 500 ML IV ONE ×2 (20:51→21:57)
[2017-05-18 20:55] LABS: Glucose,Whole Blood 128 mg/dL (75-99)
[2017-05-18] MEDS ORDERED: SODIUM CHLORIDE 0.9% 1,000 ML IV ONE (21:08)
[2017-05-18] MEDS: DOXAZOSIN 4 MG TAB PO SCH (22:13)
[2017-05-18] MEDS: CHLORHEXIDINE GLUCONATE 15 ML CUP MUCOUS MEM SCH (22:13)
[2017-05-18] MEDS: NOREPINEPHRIN 4 MG-0.9% NS PMX 4 MG/250 ML ML IV SCH (23:52)
[2017-05-19 00:14] LABS: Glucose,Whole Blood 127 mg/dL (75-99)
[2017-05-19] MEDS: INSULIN ASPART 100 UNIT/ML 1 ML 10 ML VIAL SQ SCH ×5 (00:14→23:32)
[2017-05-19] MEDS: methylPREDNISolone SOD SUCCI 125 MG/2 ML VIAL IV SCH ×5 (00:14→23:33)
[2017-05-19 01:06] LABS: Troponin I <0.012 ng/mL (0.000-0.034)
[2017-05-19 01:08] LABS: Creatine Kinase MB 3.5 ng/mL (0.0-2.4)
[2017-05-19] MEDS: PROPOFOL 1,000 MG in EMPTY BAG 1 BAG IV SCH ×2 (01:35→11:07)
[2017-05-19] MEDS ORDERED: HEPARIN SODIUM,PORCINE 10,000 UNIT/ML 1 ML VIAL IV ONE (02:05)
[2017-05-19] MEDS ORDERED: HEPARIN SOD,PORK IN 0.45% NACL 25,000 UNIT in 0.45% NACL 1 500ML.BAG IV SCH (02:15)
[2017-05-19 02:43] LABS: Basophils # (A) 0.1 k/uL (0-0.2); Basophils % (A) 0 %; Eosinophils % (A) 0 %; HCT 39.6 % (39.0-53.0); HGB 13.6 gm/dL (13.0-17.5); Lymphocytes # (A) 0.5 k/uL (1.0-4.8); Lymphocytes % (A) 2 %; MCH 34.4 pg (25.0-35.0); MCHC 34.5 g/dL (31.0-37.0); MCV 99.7 fL (80.0-100.0); Mean Platelet Volume 7.3; Monocytes # (A) 0.5 k/uL (0-1.0); Monocytes % (A) 3 %; Neutrophils # (A) 18.8 k/uL (1.3-7.7); Neutrophils % (A) 94 %; Platelet Count 220 k/uL (150-450); RBC 3.97 m/uL (4.30-5.90); RDW 12.9 % (11.5-15.5); WBC 20.1 k/uL (3.8-10.6)
[2017-05-19 02:51] LABS: INR 1.1 (<1.2); Partial Thromboplastin Time 26.7 sec (22.0-30.0); Prothrombin Time 10.8 sec (9.0-12.0)
[2017-05-19 03:09] LABS: Anion Gap 9 mmol/L; Blood Urea Nitrogen 15 mg/dL (9-20); Calcium 7.8 mg/dL (8.4-10.2); Carbon Dioxide 22 mmol/L (22-30); Chloride 104 mmol/L (98-107); Glucose 145 mg/dL (74-99); Magnesium 2.1 mg/dL (1.6-2.3); Phosphorus 2.5 mg/dL (2.5-4.5); Sodium 135 mmol/L (137-145)
[2017-05-19] MEDS: IPRATROPIUM-ALBUTEROL 3 ML NEB INHALATION PRN ×2 (03:21→23:13)
[2017-05-19] MEDS: HEPARIN SODIUM,PORCINE 5,000 UNIT/ML 1 ML VIAL IV PRN ×2 (04:00→04:01)
[2017-05-19 05:11] LABS: ABG Base Excess 2.1 mmol/L; ABG HCO3 26 mmol/L (21-25); ABG Oxygen Saturation 95.3 % (94-97); ABG PCO2 37 mmHg (35-45); ABG PH 7.46 (7.35-7.45); ABG PO2 75 mmHg (83-108); ABG TCO2 27 mmol/L (19-24)
[2017-05-19 06:13] LABS: Glucose,Whole Blood 124 mg/dL (75-99)
[2017-05-19] MEDS: guaiFENesin 600 MG TABLET.ER PO SCH ×2 (06:13→17:00)
[2017-05-19 06:53] LABS: Troponin I <0.012 ng/mL (0.000-0.034)
[2017-05-19 06:55] LABS: Creatine Kinase MB 3.3 ng/mL (0.0-2.4)
[2017-05-19] MEDS: BUDESONIDE 1 MG/2 ML NEBU INHALATION SCH ×2 (07:22→19:28)
[2017-05-19] MEDS: IPRATROPIUM-ALBUTEROL 3 ML NEB INHALATION SCH ×4 (07:22→19:27)
[2017-05-19] MEDS: FORMOTEROL FUMARATE 20 MCG/2 ML NEBU INHALATION SCH ×2 (07:22→19:27)
[2017-05-19] MEDS: ACETYLCYSTEINE 800 MG/4 ML VIAL INHALATION SCH (07:22)
--- NOTE | 2017-05-19 08:09 | XR ---
EXAMINATION TYPE: XR chest 1V portable DATE OF EXAM: 05/19/2017 COMPARISON: 05/18/2017 HISTORY: Shortness of breath TECHNIQUE: Single frontal view of the chest is obtained. FINDINGS: There is pulmonary hyperinflation, biapical lucency, tapering of pulmonary vasculature, an d elongation of the cardiomediastinal silhouette all compatible with underlying COPD. Endotracheal tu be is similar in position of prior exam. There is been interval retraction of the enteric tube with i ts fenestrated portion now at the gastroesophageal junction. No new focal airspace disease is seen. No pleural effusion or pneumothorax. Cardia mediastinal silhou ette is nonenlarged. Hilar pulmonary vasculature is engorged. Osseous structures are grossly intact. IMPRESSION: 1. Interval retraction of the enteric tube with its fenestrated portion above the gastroesophageal ju nction. Recommendation is for advancement approximately 4 to 5 cm for optimal placement. 2. Radiographic sequela of COPD and findings suggesting underlying pulmonary arterial hypertension.
[2017-05-19] MEDS: NICOTINE 14MG/24HR PATCH TRANSDERM SCH (08:39)
[2017-05-19] MEDS: THEOPHYLLINE 24 HOUR 300 MG CAP.ER.24H PO SCH ×2 (08:40→20:46)
[2017-05-19] MEDS: ASPIRIN 325 MG TAB PO SCH (08:40)
[2017-05-19] MEDS: CHLORHEXIDINE GLUCONATE 15 ML CUP MUCOUS MEM SCH ×2 (08:41→20:34)
[2017-05-19] MEDS ORDERED: ASPIRIN 325 MG TAB PO SCH (09:00)
[2017-05-19] MEDS: TAMSULOSIN 0.4 MG CAP.ER.24H PO SCH (09:00)
--- NOTE | 2017-05-19 09:24 | P.CRDCN ---
History of Present Illness Consult date: 05/19/17 Chief complaint: Shortness of breath History of present illness: This is a 66-year-old gentleman with advanced COPD was admitted to the hospital with COPD exacerbation and acute on chronic respiratory failure. The patient presented with progressive exertional dyspnea. No indication of any chest pain or chest discomfort. The patient did not have any history of coronary artery disease or congestive heart failure or any cardiac arrhythmia in the past. He does have hypertension as risk factors. Currently the patient is intubated and he is on ventilator. Beside that he is hemodynamically unstable and requiring small dose of Levophed. We get involved in the care of the patient because off EKG showing possible ST segment elevation. I reviewed the 2 EKGs from the chart and it did show nonspecific changes. More importantly, the patient did not have any symptoms of chest pain or discomfort upon presenting to the hospital. Beside that his cardiac enzymes were checked and showed normal troponin with abnormal CK-MB. The patient currently is on atenolol which I am going to stop because of the hypotension and because of the severe wheezing. Beside that he is on heparin IV which also I am going to stop. Past Medical History Past Medical History: Asthma, COPD, Hypertension Additional Past Medical History / Comment(s): Severe COPD with a baseline FEV1 of 34% of predicted, cachexia with ongoing weight loss, hypertension, BPH, abnormal weight loss, smoker History of Any Multi-Drug Resistant Organisms: None Reported Past Surgical History: No Surgical Hx Reported Past Psychological History: No Psychological Hx Reported Smoking Status: Current every day smoker ([id number] smoking history, at one point she was smoking up to 4 packs a day. He drinks whiskey 2 drinks a day. No history of IV drugs. He has also worked in [employer].) Past Alcohol Use History: Occasional Past Drug Use History: None Reported Medications and Allergies Home Medications Medication Instructions Recorded Confirmed Type Albuterol Nebulized [Ventolin 2.5 mg INHALATION RT-QID 05/13/17 05/17/17 History Nebulized] Atenolol 25 mg PO DAILY 05/13/17 05/17/17 History Levofloxacin [Levaquin] 500 mg PO DAILY 05/13/17 05/17/17 History Ranitidine HCl 150 mg PO DAILY 05/13/17 05/17/17 History Terazosin [Hytrin] 5 mg PO HS 05/13/17 05/17/17 History Theophylline 12 Hour [Budyd-Dur] 300 mg PO BID 05/13/17 05/17/17 History Doxylamine Succinate [Unisom] 25 mg PO HS PRN 05/17/17 05/17/17 History HYDROcodone/APAP 7.5-325MG [[place] 1 tab PO Q8H PRN 05/17/17 05/17/17 History 7.5-325] Allergies Allergy/AdvReac Type Severity Reaction Status Date / Time No Known Allergies Allergy Verified 05/17/17 12:42 Physical Exam Vitals: Vital Signs Temp Pulse Resp BP Pulse Ox 05/19/17 08:09 76 05/19/17 07:57 76 05/19/17 07:30 74 26 H 113/75 99 05/19/17 07:25 78 05/19/17 07:00 85 26 H 101/73 96 05/19/17 06:30 92 26 H 105/73 97 05/19/17 06:00 98.2 F 105 H 26 H 106/69 97 05/19/17 05:30 121 H 26 H 106/77 93 L 05/19/17 05:00 113 H 26 H 97/65 96 05/19/17 04:30 114 H 27 H 110/68 94 L 05/19/17 04:00 97.9 F 76 26 H 91/63 95 05/19/17 03:47 84 05/19/17 03:30 84 26 H 114/66 95 05/19/17 03:23 80 05/19/17 03:15 72 26 H 114/66 93 L 05/19/17 03:00 65 26 H 119/71 94 L 05/19/17 02:45 69 26 H 113/67 92 L 05/19/17 02:30 72 26 H 109/66 91 L 02 02:15 71 26 H 107/67 91 L 05/19/17 02:00 69 26 H 109/66 91 L 05/19/17 01:45 68 26 H 112/67 93 L 05/19/17 01:30 65 26 H 114/68 94 L 05/19/17 01:15 74 26 H 123/66 92 L 05/19/17 01:00 94.3 F L 65 26 H 118/67 92 L 05/19/17 00:45 70 26 H 122/71 91 L 05/19/17 00:30 73 26 H 115/73 96 05/19/17 00:15 68 26 H 94/70 96 05/19/17 00:00 87 26 H 73/60 96 05/18/17 23:45 98 26 H 80/59 96 05/18/17 23:30 93 26 H 71/47 96 05/18/17 23:15 94 26 H 75/65 96 05/18/17 23:00 88 26 H 82/64 96 05/18/17 22:45 91 26 H 100/74 97 05/18/17 22:30 93 26 H 86/66 95 05/18/17 22:15 90 26 H 82/65 96 05/18/17 22:00 104 H 26 H 87/64 95 05/18/17 21:45 107 H 26 H 80/63 93 L 05/18/17 21:30 108 H 26 H 78/52 94 L 05/18/17 21:15 113 H 26 H 72/52 94 L 05/18/17 21:00 96.8 F L 119 H 26 H 63/48 94 L 05/18/17 20:45 126 H 26 H 63/39 97 18 20:31 142 H 05/18/17 20:30 132 H 26 H 56/46 97 05/18/17 20:21 136 H 05/18/17 20:15 145 H 26 H 76/62 98 05/18/17 20:07 145 H 05/18/17 20:00 136 H 26 H 98 05/18/17 19:17 98 05/18/17 19:00 108 H 34 H 121/80 95 05/18/17 18:00 125 H 24 113/83 92 L 05/18/17 17:00 119 H 21 97/64 88 L 05/18/17 16:00 97 F L 135 H 19 94/64 96 05/18/17 15:00 121 H 21 104/61 97 05/18/17 14:26 111 H 05/18/17 14:13 109 H 05/18/17 14:00 112 H 22 95/68 97 05/18/17 13:30 110 H 19 112/65 99 05/18/17 13:00 112 H 19 95/76 98 05/18/17 12:00 97.4 F L 102 H 20 107/74 98 05/18/17 11:54 97 05/18/17 11:44 98 05/18/17 11:00 110 H 17 103/67 97 05/18/17 10:00 102 H 20 95/65 97 05/18/17 09:30 118 H 21 113/66 98 05/18/17 09:29 99 Intake and Output 05/18/17 05/19/17 05/19/17 22:59 06:59 14:59 Intake Total 2050.425 745.275 20 Output Total 203 117 235 Balance 1847.425 628.275 -215 Intake: IV 2050 680 20 0.9 at KVO 2050 680 20 Intake, IV Titration 0.425 65.275 Amount Norepinephrin 4 mg-0.9% 32.875 Ns Pmx 4 mg In 250 ml @ Titrate IV .Q0M [facility] Rx#: [id number] Propofol 1,000 mg In 0.425 32.40 Empty Bag 1 bag @ Titrate IV .Q0M [facility] Rx#: [id number] Output: Gastric Drainage 100 Urine 203 117 135 Other: Voiding Method Indwelling Catheter Indwelling Catheter Weight 47.6 kg - Constitutional General appearance: mild distress - Respiratory Respiratory: bilateral: wheezing - Cardiovascular Rhythm: regular Heart sounds: normal: S1, S2 Results 05/19/17 02:36 05/19/17 02:36 Cardiac Enzymes 05/19/17 05/19/17 Range/Units 00:25 06:09 CK-MB (CK-2) 3.5 H* 3.3 H* (0.0-2.4) ng/mL Troponin I <0.012 <0.012 (0.000-0.034) ng/mL Coagulation 05/19/17 Range/Units 02:31 PT 10.8 (9.0-12.0) sec APTT 26.7 (22.0-30.0) sec CBC 05/19/17 Range/Units 02:36 WBC 20.1 H (3.8-10.6) k/uL RBC 3.97 L (4.30-5.90) m/uL Hgb 13.6 (13.0-17.5) gm/dL Hct 39.6 (39.0-53.0) % Plt Count 220 (150-450) k/uL Comprehensive Metabolic Panel 05/18/17 05/19/17 Range/Units 11:43 02:36 Sodium 135 L (137-145) mmol/L Potassium 3.7 4.0 (3.5-5.1) mmol/L Chloride 104 (98-107) mmol/L Carbon Dioxide 22 (22-30) mmol/L BUN 15 (9-20) mg/dL Creatinine 0.47 L (0.66-1.25) mg/dL Glucose 145 H (74-99) mg/dL Calcium 7.8 L (8.4-10.2) mg/dL Current Medications Generic Name Dose Route Start Last Admin Trade Name Freq PRN Reason Stop Dose Admin Hydrocodone Bitart/Acetaminophen 1 each 05/17/17 13:10 05/18/17 03:58 [place] 7.5-325 PO 1 each Q8H PRN Administration Pain Acetylcysteine 200 mg 05/18/17 13:30 05/19/17 07:22 Mucomyst INHALATION 200 mg RT-DAILY [facility] Administration Albuterol/Ipratropium 3 ml 05/17/17 13:10 05/19/17 03:21 Duoneb 0.5 Mg-3 Mg/3 Ml Soln INHALATION 3 ml RT-QID PRN Administration Shortness Of Breath Or Wheezing Albuterol/Ipratropium 3 ml 05/17/17 16:00 05/19/17 07:22 Duoneb 0.5 Mg-3 Mg/3 Ml Soln INHALATION 3 ml RT-QID [facility] Administration Alprazolam 0.5 mg 05/18/17 09:04 05/18/17 17:40 Xanax PO 0.5 mg TID PRN Administration Anxiety Aspirin 325 mg 05/18/17 10:15 05/19/17 08:40 Aspirin PO 325 mg DAILY [facility] Administration Budesonide 1 mg 05/17/17 14:00 05/19/17 07:22 Pulmicort INHALATION 1 mg RT-BID [facility] Administration Chlorhexidine Gluconate 15 ml 05/18/17 21:00 05/19/17 08:41 Peridex MUCOUS MEM 15 ml BID [facility] Administration Doxazosin Mesylate 4 mg 05/17/17 21:00 05/18/17 22:13 Cardura PO Not Given HS [facility] Formoterol Fumarate 20 mcg 05/17/17 14:00 05/19/17 07:22 Perforomist INHALATION 20 mcg RT-BID [facility] Administration Guaifenesin 1,200 mg 05/18/17 18:00 05/19/17 06:13 Mucinex PO Not Given Q12H [facility] Heparin Sodium (Porcine) 5,000 unit 05/19/17 16:00 Heparin SQ Q8HR [facility] Levofloxacin 500 mg/ IV 100 mls @ 100 mls/hr 05/18/17 14:00 05/18/17 15:29 Solution IVPB 100 mls/hr Q24H [facility] Administration Propofol 1,000 mg/ IV Solution 100 mls @ 0 mls/hr 05/18/17 19:00 05/19/17 06: 16 IV 50.16 mcg/kg/min .Q0M [facility] 15.2 mls/hr Protocol Titration Titrate Norepinephrine Bitartrate 4 mg in 250 mls @ 0 mls/hr 05/18/17 22:15 05/19/17 01:12 Levophed-0.9% Nacl 4 Mg/250ml Pmx IV 5 mcg/min .Q0M [facility] 18.75 mls/hr Protocol Titration Titrate Insulin Aspart 0 unit 05/19/17 00:00 05/19/17 06:11 Novolog SQ Not Given Q6H [facility] Protocol Methylprednisolone Sodium Succinate 60 mg 05/19/17 12:00 Solu-Medrol IV Q6HR [facility] Naloxone HCl 0.2 mg 05/17/17 23:48 Narcan IV Q2M PRN Opioid Reversal Nicotine 1 patch 05/17/17 13:15 05/19/17 08:39 Habitrol 14mg/24hr Patch TRANSDERM 1 patch DAILY [facility] Administration Pantoprazole Sodium 40 mg 05/19/17 09:00 Protonix IVP BID [facility] Tamsulosin HCl 0.4 mg 05/18/17 08:30 05/19/17 09:00 Flomax PO Not Given PC-BRKFST [facility] Theophylline 300 mg 05/17/17 21:00 05/19/17 08:40 Buddy-24 PO 300 mg BID [facility] Administration Intake and Output 05/18/17 05/19/17 05/19/17 22:59 06:59 14:59 Intake Total 2050.425 745.275 20 Output Total 203 117 235 Balance 1847.425 628.275 -215 Intake: IV 2049 680 20 0.9 at KVO 0 680 20 Intake, IV Titration 0.425 65.275 Amount Norepinephrin 4 mg-0.9% 32.875 Ns Pmx 4 mg In 250 ml @ Titrate IV .Q0M [facility] Rx#: [id number] Propofol 1,000 mg In 0.425 32.40 Empty Bag 1 bag @ Titrate IV .Q0M [facility] Rx#: [id number] Output: Gastric Drainage 100 Urine 203 117 135 Other: Voiding Method Indwelling Catheter Indwelling Catheter Weight 47.6 kg 05/19/17 02:36 05/19/17 02:36 Assessment and Plan Assessment: Assessment #1 acute on chronic respiratory failure secondary to COPD exacerbation #2 hypotension requiring vasopressors was Levophed #3 abnormal EKG showing nonspecific changes. #4 mildly abnormal cardiac enzymes was abnormal CK-MB and normal troponin Plan #1 I would consider conservative medical approach at this point of time. #2 DC the heparin and DC the atenolol #3 continues the blood pressure was Levophed and titrate wean him from the liver foot once its possible #4 obtain an echocardiogram was Doppler #5 follow-up with the patient Thank you for allowing us participate in his care
--- NOTE | 2017-05-19 10:09 | P.PN ---
Subjective Progress Note Date: 05/19/17 Principal diagnosis: Acute hypoxic respiratory failure secondary to COPD exacerbation, and acute CVA. A 66-year-old male patient with known history of severe COPD and the patient has been in a catabolic state for many years and he continues to smoke cigarettes on a daily basis. The patient has significant limitation in exercise capacity and the patient's baseline FEV1 is 33% of predicted with known severe hyperinflation on his chest x-rays as evident in his previous films from the office. The patient was doing relatively okay and his last evaluation my office was in November 2016. The patient came into the emergency department yesterday with worsening shortness of breath. He was in the ED approximately 2 days prior and the patient was having episodes of dysarthria and some weakness in his left face and slurred speech. He was also having some on and off weakness in his left upper and left lower extremity. He was having difficulty with ambulation due to increased weakness lower extremities bilaterally. The patient was seen in emergency department and the CAT scan of the brain was done that showed no acute abnormalities on 05/13/2017 and it showed stable atrophy with chronic small vessel ischemic changes. No hemorrhage was evident. The patient was discharged home and within next 24-48 hours his condition got worse and had to come back with altered mentation, left upper and left lower extremity weakness, left facial weakness, and slurred speech. Meanwhile his breathing got worse and he is actively bronchospastic and wheezy and short of breath. A blood gases was done emergency department and it showed no evidence of any hypercapnic respiratory failure. The patient was very anxious. He was brought into the ICU where he was given yarn-iy-cyyt breathing treatments and he was started on IV Solu-Medrol high-dose. This morning I was able to put him on a BiPAP at a pressure of 8 over 4 cm of water. He is unable to tolerate higher pressures. He has excessive respiratory secretions. He is still able to swallow appropriately. I examined his swallow at the bedside and the patient did well. He has no chest pain. Is a congested cough. He has unable to speak of. This is in any rate his speech is garbled and slurred. He understands and comprehends very well. He is a bit anxious. He required Ativan overnight and currently will placed on Xanax. He is on oral aspirin. CAT scan of the brain was not repeated as the patient was unable to lay down flat because of his worsening shortness of breath and increased anxiety. Doppler of the carotids was done and showed 50% stenosis bilaterally in the internal carotid artery. The patient is currently not ICU and the family is at the bedside. Patient was seen by neurology yesterday. Suspect an acute right MCA distribution CVA. Patient was reevaluated today on 05/19/2017, remains on mechanical ventilation. His ventilator settings are tidal volume of 400, assist control rate of 20 FiO2 of 40% and PEEP of 5. Plateau pressure is about 18. Chest x-ray is mostly consistent with COPD/emphysema. ABG showed a pO2 of 75 pCO2 of 37 pH of 7.46. Basic metabolic profile is relatively normal. CBC showed WBC count of 20.1 hemoglobin is 13.6. Basic metabolic profile is relatively normal. Patient is scheduled to have repeat CT of the brain today, he was seen by cardiology for nonspecific EKG abnormalities. Patient continues to have mostly left-sided weakness secondary to his CVA in the middle cerebral artery distribution. Objective - Vital Signs Vital signs: Vital Signs Temp 98.2 F 05/19/17 06:00 Pulse 76 05/19/17 08:09 Resp 26 H 05/19/17 07:30 BP 113/75 05/19/17 07:30 Pulse Ox 99 05/19/17 07:30 Intake & Output 05/18/17 05/19/17 05/19/17 18:59 06:59 18:59 Intake Total 650 2755.700 20 Output Total 1548 192 235 Balance -898 2563.700 -215 Weight 47.6 kg Intake: IV 400 2690 20 0.9 at KVO 80 2690 20 Sodium Chloride 0.9% 1, 120 000 ml @ 100 mls/hr IV . Q10H STA Rx#:[id number] magnesium 200 Intake, IV Titration 65.700 Amount Norepinephrin 4 mg-0.9% 32.875 Ns Pmx 4 mg In 250 ml @ Titrate IV .Q0M [facility] Rx#: [id number] Propofol 1,000 mg In 32.825 Empty Bag 1 bag @ Titrate IV .Q0M [facility]ARTE Rx#: [id number] Oral 250 Output: Gastric Drainage 100 Urine 1548 192 135 Other: Voiding Method Indwelling Catheter Indwelling Catheter - Exam Physical Exam: Revealed a 66-year-old white male, cachectic looking, on mechanical ventilation, in no distress. Awake. But looks frail and chronically ill. HEENT:[Neck is supple.] [No neck masses.] [No thyromegaly.] [No JVD.] Moist mucous membranes. PERRLA, EOMI. Endotracheal tube is intact. Chest: [Diminished breath sounds at the bases, rhonchi and wheezes noted bilaterally especially on forced expiratory maneuver. Prolonged expiratory phase noted. Patient has a barrel chest.] Cardiac Exam: [Normal S1 and S2, no S3 gallop, no murmur.] Abdomen: [Soft, nontender, no megaly, no rebound, no guarding, normal bowel sounds.] Extremities: [No clubbing, no edema, no cyanosis.] Neurological Exam: Patient is awake, alert, and comprehending what he is being told, speech cannot be assessed. Left-sided weakness is noted. Pupils are equally reactive to light. Left facial droop is noted. Unable to assess gait. Psychiatric: Could not be assessed, patient is on mechanical ventilation. Musculoskeletal: Left-sided weakness as noted above. Lymphatics: No lymphadenopathy. - Labs CBC & Chem 7: 05/19/17 02:36 05/19/17 02:36 Labs: Abnormal Lab Results - Last 24 Hours (Table) 05/18/17 05/18/17 05/18/17 Range/Units 11:30 17:13 18:19 WBC (3.8-10.6) k/uL RBC (4.30-5.90) m/uL Neutrophils # (1.3-7.7) k/uL Lymphocytes # (1.0-4.8) k/uL ABG pH (7.35-7.45) ABG pCO2 46 H (35-45) mmHg ABG pO2 80 L (83-108) mmHg ABG HCO3 30 H (21-25) mmol/L ABG Total CO2 32 H (19-24) mmol/L ABG O2 Saturation (94-97) % Sodium (137-145) mmol/L Creatinine (0.66-1.25) mg/dL Glucose (74-99) mg/dL POC Glucose (mg/dL) 161 H 152 H (75-99) mg/dL Calcium (8.4-10.2) mg/dL CK-MB (CK-2) (0.0-2.4) ng/mL 05/18/17 05/18/17 05/19/17 Range/Units 19:58 20:54 00:13 WBC (3.8-10.6) k/uL RBC (4.30-5.90) m/uL Neutrophils # (1.3-7.7) k/uL Lymphocytes # (1.0-4.8) k/uL ABG pH 7.33 L (7.35-7.45) ABG pCO2 54 H (35-45) mmHg ABG pO2 >400 H (83-108) mmHg ABG HCO3 29 H (21-25) mmol/L ABG Total CO2 30 H (19-24) mmol/L ABG O2 Saturation 100.0 H (94-97) % Sodium (137-145) mmol/L Creatinine (0.66-1.25) mg/dL Glucose (74-99) mg/dL POC Glucose (mg/dL) 128 H 127 H (75-99) mg/dL Calcium (8.4-10.2) mg/dL CK-MB (CK-2) (0.0-2.4) ng/mL 05/19/17 05/19/17 05/19/17 Range/Units 00:25 02:36 02:36 WBC 20.1 H (3.8-10.6) k/uL RBC 3.97 L (4.30-5.90) m/uL Neutrophils # 18.8 H (1.3-7.7) k/uL Lymphocytes # 0.5 L (1.0-4.8) k/uL ABG pH (7.35-7.45) ABG pCO2 (35-45) mmHg ABG pO2 (83-108) mmHg ABG HCO3 (21-25) mmol/L ABG Total CO2 (19-24) mmol/L ABG O2 Saturation (94-97) % Sodium 135 L (137-145) mmol/L Creatinine 0.47 L (0.66-1.25) mg/dL Glucose 145 H (74-99) mg/dL POC Glucose (mg/dL) (75-99) mg/dL Calcium 7.8 L (8.4-10.2) mg/dL CK-MB (CK-2) 3.5 H* (0.0-2.4) ng/mL 05/19/17 05/19/17 05/19/17 Range/Units 05:09 06:09 06:11 WBC (3.8-10.6) k/uL RBC (4.30-5.90) m/uL Neutrophils # (1.3-7.7) k/uL Lymphocytes # (1.0-4.8) k/uL ABG pH 7.46 H (7.35-7.45) ABG pCO2 (35-45) mmHg ABG pO2 75 L (83-108) mmHg ABG HCO3 26 H (21-25) mmol/L ABG Total CO2 27 H (19-24) mmol/L ABG O2 Saturation (94-97) % Sodium (137-145) mmol/L Creatinine (0.66-1.25) mg/dL Glucose (74-99) mg/dL POC Glucose (mg/dL) 124 H (75-99) mg/dL Calcium (8.4-10.2) mg/dL CK-MB (CK-2) 3.3 H* (0.0-2.4) ng/mL Microbiology - Last 24 Hours (Table) 05/18/17 19:23 Gram Stain - Preliminary Sputum Sputum Culture - Preliminary 05/18/17 01:25 Urine Culture - Preliminary Urine,Catheterized Assessment and Plan Assessment: Impression: 1 acute hypoxic respiratory failure secondary to severe end-stage COPD exacerbation. 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 CT of the brain is pending. 3 severe end-stage COPD, FEV1 is in the range of 33%. 4 history of hypertension, 5 history of benign prostatic hypertrophy 6 tobacco dependence syndrome 7 chronic weight loss and cachexia secondary to COPD and poor nutritional status. Protein calorie malnutrition is suspected. Recommendation: Continue present treatment plan including ventilatory support, antibiotics, steroids, enteral feeding, assess CT of the brain today, continue GI and DVT prophylaxis, continue nutritional support, patient is clearly not ready for any form of weaning at this point. Prognosis remains extremely poor and guarded. Discussed his condition with his daughter at bedside. We will continue to follow. Critical care time is 40 minutes. Time with Patient: Greater than 30
[2017-05-19] MEDS: PANTOPRAZOLE 40 MG/10 ML VIAL IVP SCH ×2 (10:56→20:34)
--- NOTE | 2017-05-19 10:58 | CT ---
EXAMINATION TYPE: CT brain wo con DATE OF EXAM: 05/19/2017 COMPARISON: 05/13/2017 HISTORY: Lt sided weakness, facial droop CT DLP: 1046.1 mGycm Automated exposure control for dose reduction was used. TECHNIQUE: CT scan of the head is performed without contrast. FINDINGS: There is no acute intracranial hemorrhage or midline shift identified. There is diffuse v entricular and sulcal prominence consistent with diffuse age-related cerebral atrophy. There is low- attenuation in the periventricular white matter consistent with chronic small vessel ischemic change. Old punctate lacunar injury of the right pearl is again identified. The globes are intact and the vis ualized sinuses are clear. IMPRESSION: 1. No acute intracranial hemorrhage or midline shift. 2. 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 2. Redemonstration of diffuse age-related cerebral atrophy and chronic small vessel ischemic.
--- NOTE | 2017-05-19 11:43 | ECHOF ---
Referral Reason:CVA MEASUREMENTS -------- HEIGHT: 175.3 cm WEIGHT: 47.2 kg BP: 95/70 RVIDd: 2.8 cm (< 3.3) IVSd: 1.1 cm (0.6 - 1.1) LVIDd: 3.2 cm (3.9 - 5.3) LVPWd: 1.0 cm (0.6 - 1.1) IVSs: 1.5 cm LVIDs: 2.1 cm LVPWs: 1.6 cm Ao Diam: 3.6 cm (2.0 - 3.7) AV Cusp: 2.0 cm (1.5 - 2.6) LA Diam: 3.7 cm (2.7 - 3.8) MV EXCURSION: 20.130 mm (> 18.000) MV EF SLOPE: 111 mm/s (70 - 150) EPSS: 0.5 cm MV E Ramiro: 0.53 m/s MV DecT: 219 ms MV A Ramiro: 0.68 m/s MV E/A Ratio: 0.78 RAP: 5.00 mmHg RVSP: 21.56 mmHg FINDINGS -------- Sinus rhythm. This was a technically adequate study. LV size, wall thickness and systolic function are normal, with an EF greater than 55%. The left hilary tricular size is normal. The right ventricle is normal in size. The left atrial size is normal. The right atrial size is normal. There is mild aortic valve sclerosis. There is no evidence of aortic regurgitation. Mild mitral annular calcification present. Mild mitral regurgitation is present. Mild tricuspid regurgitation present. There is no evidence of pulmonary hypertension. The right v entricular systolic pressure, as measured by Doppler, is 21.56mmHg. Trace/mild (physiologic) pulmonic regurgitation. The aortic root size is normal. There is a trivial pericardial effusion present. CONCLUSIONS -------- 1. LV size, wall thickness and systolic function are normal, with an EF greater than 55%. 2. The left ventricular size is normal. 3. There is mild aortic valve sclerosis. 4. Mild mitral annular calcification present. 5. Mild mitral regurgitation is present. 6. Mild tricuspid regurgitation present. 7. There is no evidence of pulmonary hypertension. 8. The right ventricular systolic pressure, as measured by Doppler, is 21.56mmHg. 9. Trace/mild (physiologic) pulmonic regurgitation. 10. The aortic root size is normal. 11. There is a trivial pericardial effusion present. CABLEMAN: Parris Jackman RDCS
[2017-05-19 11:58] LABS: Glucose,Whole Blood 132 mg/dL (75-99)
[2017-05-19] MEDS: NOREPINEPHRIN 4 MG-0.9% NS PMX 4 MG/250 ML ML IV SCH (13:04)
[2017-05-19] MEDS: LEVOFLOXACIN 500MG-D5W PMX 500 MG in DEXTROSE/WATER 1 100ML.BAG IVPB SCH (13:05)
[2017-05-19] MEDS: HEPARIN SODIUM,PORCINE 5,000 UNIT/ML 1 ML VIAL SQ SCH ×2 (16:59→23:32)
--- NOTE | 2017-05-19 18:04 | P.PN ---
Subjective Progress Note Date: 05/19/17 This patient is a 66-year-old male with known history of asthma and severe COPD exacerbation. Patient was admitted with acute on chronic rest Laurent failure. Neurology was consulted for evaluation of left-sided weakness as well as left- sided facial droop. He underwent an initial computed tomography scan of the brain which failed to reveal any acute changes. Patient developed respiratory distress and was transferred into the intensive care unit where he he was treated aggressively with IV steroids and breathing treatments. Patient continued to decompensate yesterday evening and did require intubation. Patient is currently seen in the intensive care unit on the ventilator. He is currently on a Diprivan drip. The patient was able to go for a repeat computed tomography scan of the brain today. This CAT scan of the brain reveals no acute intracranial hemorrhage or midline shift. 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 Diffuse age-related cerebral atrophy and chronic small vessel ischemic changes were noted. 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 We will need to continue close follow- up once he is extubated to monitor for left-sided hemiparesthesias. As noted the CAT scan today fails to reveal any evidence of acute stroke or hemorrhage. Case was discussed today at the patient's bedside with his and daughter. Apparently he did complain of some hearing loss in his left ear. Otherwise family feels he was moving his left side somewhat better today as compared to his initial presentation to the hospital. Patient is recovering from acute hypoxic rest Laurent failure secondary to severe end-stage COPD exacerbation. Pulmonary medicine is following his condition closely. We will continue close neurological follow-up with this patient in the intensive care unit. Patient did complete a routine EEG today which will be reviewed. His overall prognosis at this time remains guarded. Objective - Vital Signs Vital signs: Vital Signs Temp 97.6 F 05/19/17 12:00 Pulse 81 05/19/17 15:34 Resp 24 05/19/17 15:00 BP 114/79 05/19/17 15:00 Pulse Ox 96 05/19/17 15:00 Intake & Output 05/18/17 05/19/17 05/19/17 18:59 06:59 18:59 Intake Total 650 2755.700 606.440 Output Total 1548 192 490 Balance -898 2563.700 116.440 Weight 47.6 kg 47.6 kg Intake: IV 400 2690 280 0.9 at KVO 80 2690 180 Levofloxacin 500Mg-D5w 100 Pmx 500 mg In Dextrose/ Water 1 100ml.bag @ 100 mls/hr IVPB Q24H [facility] Rx#: [id number] Sodium Chloride 0.9% 1, 120 000 ml @ 100 mls/hr IV . Q10H STA Rx#:[id number] magnesium 200 Intake, IV Titration 65.700 266.440 Amount Norepinephrin 4 mg-0.9% 32.875 234.625 Ns Pmx 4 mg In 250 ml @ Titrate IV .Q0M [facility] Rx#: [id number] Propofol 1,000 mg In 32.825 31.815 Empty Bag 1 bag @ Titrate IV .Q0M [facility] Rx#: [id number] Oral 250 Tube Feeding 60 Output: Gastric Drainage 100 Urine 1548 192 390 Other: Voiding Method Indwelling Catheter Indwelling Catheter Indwelling Catheter - Exam Physical Examination: PHYSICAL EXAMINATION: Patient is resting comfortably in bed. Patient is intubated on the ventilator in the ICU today. VITAL SIGNS: Blood pressure is [114/79]. Heart rate is [73]. Respiration is [24] . Temperature is [97.7]. HEENT: Head is atraumatic, neck is supple, there were no carotid bruits. CHEST: Lungs are clear to auscultation and percussion. CARDIAC: S1, S2 normal rate and rhythm. There is no murmur. ABDOMEN: Soft and nontender. Bowel sounds are present. EXTREMITIES: There is no pedal edema. Peripheral pulses are present. Neurological examination: Patient's neurological examination is unchanged from yesterday. He has left- sided hemiparesis with mild left facial droop and slurred speech. Patient is currently intubated on IV sedation with propofol. - Labs CBC & Chem 7: 05/19/17 02:36 05/19/17 02:36 Labs: Abnormal Lab Results - Last 24 Hours (Table) 05/18/17 05/18/17 05/18/17 Range/Units 17:13 18:19 19:58 WBC (3.8-10.6) k/uL RBC (4.30-5.90) m/uL Neutrophils # (1.3-7.7) k/uL Lymphocytes # (1.0-4.8) k/uL ABG pH 7.33 L (7.35-7.45) ABG pCO2 46 H 54 H (35-45) mmHg ABG pO2 80 L >400 H (83-108) mmHg ABG HCO3 30 H 29 H (21-25) mmol/L ABG Total CO2 32 H 30 H (19-24) mmol/L ABG O2 Saturation 100.0 H (94-97) % Sodium (137-145) mmol/L Creatinine (0.66-1.25) mg/dL Glucose (74-99) mg/dL POC Glucose (mg/dL) 152 H (75-99) mg/dL Calcium (8.4-10.2) mg/dL CK-MB (CK-2) (0.0-2.4) ng/mL 05/18/17 05/19/17 05/19/17 Range/Units 20:54 00:13 00:25 WBC (3.8-10.6) k/uL RBC (4.30-5.90) m/uL Neutrophils # (1.3-7.7) k/uL Lymphocytes # (1.0-4.8) k/uL ABG pH (7.35-7.45) ABG pCO2 (35-45) mmHg ABG pO2 (83-108) mmHg ABG HCO3 (21-25) mmol/L ABG Total CO2 (19-24) mmol/L ABG O2 Saturation (94-97) % Sodium (137-145) mmol/L Creatinine (0.66-1.25) mg/dL Glucose (74-99) mg/dL POC Glucose (mg/dL) 128 H 127 H (75-99) mg/dL Calcium (8.4-10.2) mg/dL CK-MB (CK-2) 3.5 H* (0.0-2.4) ng/mL 05/19/17 05/19/17 05/19/17 Range/Units 02:36 02:36 05:09 WBC 20.1 H (3.8-10.6) k/uL RBC 3.97 L (4.30-5.90) m/uL Neutrophils # 18.8 H (1.3-7.7) k/uL Lymphocytes # 0.5 L (1.0-4.8) k/uL ABG pH 7.46 H (7.35-7.45) ABG pCO2 (35-45) mmHg ABG pO2 75 L (83-108) mmHg ABG HCO3 26 H (21-25) mmol/L ABG Total CO2 27 H (19-24) mmol/L ABG O2 Saturation (94-97) % Sodium 135 L (137-145) mmol/L Creatinine 0.47 L (0.66-1.25) mg/dL Glucose 145 H (74-99) mg/dL POC Glucose (mg/dL) (75-99) mg/dL Calcium 7.8 L (8.4-10.2) mg/dL CK-MB (CK-2) (0.0-2.4) ng/mL 05/19/17 05/19/17 05/19/17 Range/Units 06:09 06:11 11:56 WBC (3.8-10.6) k/uL RBC (4.30-5.90) m/uL Neutrophils # (1.3-7.7) k/uL Lymphocytes # (1.0-4.8) k/uL ABG pH (7.35-7.45) ABG pCO2 (35-45) mmHg ABG pO2 (83-108) mmHg ABG HCO3 (21-25) mmol/L ABG Total CO2 (19-24) mmol/L ABG O2 Saturation (94-97) % Sodium (137-145) mmol/L Creatinine (0.66-1.25) mg/dL Glucose (74-99) mg/dL POC Glucose (mg/dL) 124 H 132 H (75-99) mg/dL Calcium (8.4-10.2) mg/dL CK-MB (CK-2) 3.3 H* (0.0-2.4) ng/mL Microbiology - Last 24 Hours (Table) 05/18/17 01:25 Urine Culture - Final Urine,Catheterized 05/18/17 19:23 Gram Stain - Preliminary Sputum Sputum Culture - Preliminary Assessment and Plan (1) Acute right arterial ischemic stroke, MCA (middle cerebral artery) Current Visit: Yes Status: Acute Code(s): I63.511 - CEREB INFRC D/T UNSP OCCLS OR STENOS OF RIGHT MID CEREB ART SNOMED Code(s): 299411513 (2) Aphasia Current Visit: Yes Status: Acute Code(s): R47.01 - APHASIA SNOMED Code(s) : 07250779 (3) Gait disorder Current Visit: Yes Status: Acute Code(s): R26.9 - UNSPECIFIED ABNORMALITIES OF GAIT AND MOBILITY SNOMED Code(s): 28409519 (4) Shortness of breath Current Visit: Yes Status: Acute Code(s): R06.02 - SHORTNESS OF BREATH SNOMED Code(s): 368777981 Plan: This patient is a 66-year-old male being followed in the intensive care unit for initial evaluation of left-sided hemiparesis and slurred speech. His initial computed tomography scan of the brain was negative for any acute findings. Patient developed worsening rest Laurent distress yesterday evening and was intubated and placed on the ventilator. He remains intubated and is following some simple commands. He is currently on a Diprivan drip. He was able to have a follow-up computed tomography scan of the brain done today the results which are noted above. CAT scan failed to reveal any evidence of acute stroke. 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 We will continue close neurological follow-up for the patient during this admission none. Case was discussed at length today with the patient 's and daughter at bedside. All their questions were answered. They are aware of the CAT scan results as was obtained today. We will continue close neurological follow-up of this patient in the intensive care unit.
[2017-05-19 18:47] LABS: Glucose,Whole Blood 113 mg/dL (75-99)
[2017-05-19 18:47] LABS: Glucose,Whole Blood 114 mg/dL (75-99)
--- NOTE | 2017-05-19 18:55 | EEG ---
ELECTROENCEPHALOGRAM REPORT DATE OF EE05/19/2017 ELECTROENCEPHALOGRAPHIC EXAMINATION REPORT: INDICATION FOR EXAMINATION: This patient is a 66-year-old male being evaluated for acute left-sided weakness and possible acute right hemispheric stroke. AGE: 66. EEG FINDINGS: A routine 21-channel awake digital EEG recording was accomplished utilizing the 10-20 international system with bipolar and referential montages. The background activity in the most alert resting state consists of a low to medium amplitude, fairly well developed and well sustained 6 Hz activity over the posterior head regions. This posterior rhythm attenuates to eye opening. There is a small amount of low amplitude 18-20 Hz beta activity seen maximally over the anterior head regions. Muscle and movement artifact was observed on a few occasions during the tracing. Hyperventilation was not performed. Photic stimulation at flash frequencies of 2-30 Hz produced a minimal occipital driving response. The main feature of this tracing is the occurrence of right temporal sharp waves occurring on several occasions throughout the tracing. IMPRESSION: This EEG is abnormal due to the occurrence of right hemispheric temporal sharp waves. This finding suggests possibility of seizure disorder of deep level origin. Clinical correlation is recommended. MMODL / IJN: [id number] /
[2017-05-19] MEDS: levETIRAcetam IV 500 MG in SODIUM CHLORIDE 0.9% 100 ML IVPB SCH (20:34)
[2017-05-19] MEDS: DOXAZOSIN 4 MG TAB PO SCH (20:34)
[2017-05-19 23:36] LABS: Glucose,Whole Blood 133 mg/dL (75-99)
[2017-05-20] MEDS ORDERED: SODIUM CHLORIDE 0.9% 1,000 ML IV ONE ×2 (03:18→10:58)
[2017-05-20] MEDS: IPRATROPIUM-ALBUTEROL 3 ML NEB INHALATION PRN (03:31)
[2017-05-20 04:39] LABS: Basophils % (A) 0 %; Eosinophils % (A) 0 %; HCT 39.2 % (39.0-53.0); HGB 13.1 gm/dL (13.0-17.5); Lymphocytes # (A) 0.4 k/uL (1.0-4.8); Lymphocytes % (A) 3 %; MCH 33.5 pg (25.0-35.0); MCHC 33.3 g/dL (31.0-37.0); MCV 100.5 fL (80.0-100.0); Mean Platelet Volume 7.2; Monocytes # (A) 0.5 k/uL (0-1.0); Monocytes % (A) 3 %; Neutrophils # (A) 12.5 k/uL (1.3-7.7); Neutrophils % (A) 92 %; Platelet Count 156 k/uL (150-450); RBC 3.91 m/uL (4.30-5.90); RDW 13.1 % (11.5-15.5); WBC 13.5 k/uL (3.8-10.6)
[2017-05-20 04:51] LABS: Anion Gap 9 mmol/L; Blood Urea Nitrogen 17 mg/dL (9-20); Calcium 7.9 mg/dL (8.4-10.2); Carbon Dioxide 23 mmol/L (22-30); Chloride 106 mmol/L (98-107); Glucose 120 mg/dL (74-99); Magnesium 2.2 mg/dL (1.6-2.3); Phosphorus 2.5 mg/dL (2.5-4.5); Potassium 3.8 mmol/L (3.5-5.1); Sodium 138 mmol/L (137-145)
[2017-05-20 05:18] LABS: Glucose,Whole Blood 115 mg/dL (75-99)
[2017-05-20] MEDS: INSULIN ASPART 100 UNIT/ML 1 ML 10 ML VIAL SQ SCH ×3 (05:19→18:25)
[2017-05-20] MEDS: guaiFENesin 600 MG TABLET.ER PO SCH ×2 (05:19→17:51)
[2017-05-20] MEDS: methylPREDNISolone SOD SUCCI 125 MG/2 ML VIAL IV SCH ×3 (05:20→17:51)
[2017-05-20] MEDS ORDERED: Potassium Replacement Protocol 1 EACH MISC MISCELLANE PRN (05:58)
[2017-05-20] MEDS ORDERED: POTASSIUM CHLORIDE ER 20 MEQ TAB.ER PO SCH (06:00)
[2017-05-20] MEDS ORDERED: FUROSEMIDE 10 MG/ML 4 ML VIAL IV STA (07:02)
[2017-05-20] MEDS: PROPOFOL 1,000 MG in EMPTY BAG 1 BAG IV SCH ×3 (07:06→20:08)
[2017-05-20] MEDS: BUDESONIDE 1 MG/2 ML NEBU INHALATION SCH ×2 (07:08→19:24)
[2017-05-20] MEDS: FORMOTEROL FUMARATE 20 MCG/2 ML NEBU INHALATION SCH ×2 (07:08→19:24)
[2017-05-20] MEDS: IPRATROPIUM-ALBUTEROL 3 ML NEB INHALATION SCH ×4 (07:08→19:24)
[2017-05-20] MEDS: ACETYLCYSTEINE 800 MG/4 ML VIAL INHALATION SCH (07:08)
[2017-05-20] MEDS: CHLORHEXIDINE GLUCONATE 15 ML CUP MUCOUS MEM SCH ×2 (08:02→20:27)
[2017-05-20] MEDS: HEPARIN SODIUM,PORCINE 5,000 UNIT/ML 1 ML VIAL SQ SCH ×2 (08:02→15:12)
[2017-05-20] MEDS: TAMSULOSIN 0.4 MG CAP.ER.24H PO SCH (08:02)
[2017-05-20] MEDS: PANTOPRAZOLE 40 MG/10 ML VIAL IVP SCH ×2 (08:03→20:27)
--- NOTE | 2017-05-20 08:08 | XR ---
EXAMINATION TYPE: XR chest 1V portable DATE OF EXAM: 05/20/2017 COMPARISON: 05/19/2017 INDICATION: Tube placement TECHNIQUE: Single frontal view of the chest is obtained. FINDINGS: The heart size is normal. The pulmonary vasculature is normal. Lungs are hyperinflated. There is a mild infiltrate in the right upper lobe. This is increasing. Endotracheal tube is present with tip above the ruthie. Nasogastric tube transverses the thorax the t ip out of the [id number]. Minimal blunting is noted at the costophrenic angles. IMPRESSION: 1. COPD. 2. Diffuse increased density in the right upper lobe. Correlate for developing pneumonia.
[2017-05-20 08:22] LABS: ABG Base Excess 1.3 mmol/L; ABG HCO3 26 mmol/L (21-25); ABG Oxygen Saturation 91.5 % (94-97); ABG PCO2 40 mmHg (35-45); ABG PH 7.42 (7.35-7.45); ABG PO2 61 mmHg (83-108); ABG TCO2 27 mmol/L (19-24)
[2017-05-20] MEDS: levETIRAcetam IV 500 MG in SODIUM CHLORIDE 0.9% 100 ML IVPB SCH ×2 (08:48→20:28)
[2017-05-20] MEDS: ASPIRIN 325 MG TAB PO SCH (08:50)
[2017-05-20] MEDS: NICOTINE 14MG/24HR PATCH TRANSDERM SCH (08:50)
[2017-05-20] MEDS: THEOPHYLLINE 24 HOUR 300 MG CAP.ER.24H PO SCH ×2 (09:27→20:28)
--- NOTE | 2017-05-20 10:18 | P.PN ---
Subjective Progress Note Date: 05/20/17 Principal diagnosis: Abnormal EKG This is a 66-year-old gentleman with advanced COPD was admitted to the hospital with COPD exacerbation and acute on chronic respiratory failure. The patient presented with progressive exertional dyspnea. No indication of any chest pain or chest discomfort. The patient did not have any history of coronary artery disease or congestive heart failure or any cardiac arrhythmia in the past. He does have hypertension as risk factors. Currently the patient is intubated and he is on ventilator. Beside that he is hemodynamically unstable and requiring small dose of Levophed. We get involved in the care of the patient because off EKG showing possible ST segment elevation. I reviewed the 2 EKGs from the chart and it did show nonspecific changes. More importantly, the patient did not have any symptoms of chest pain or discomfort upon presenting to the hospital. Beside that his cardiac enzymes were checked and showed normal troponin with abnormal CK-MB. The patient underwent an echocardiogram and that revealed normal LV function without any significant valvular abnormalities. I'll follow-up with the patient today, he continues to be in respiratory failure and continues to be hemodynamically unstable as well as intubated on ventilator. Objective - Vital Signs Vital signs: Vital Signs Temp 97.4 F L 05/20/17 09:00 Pulse 129 H 05/20/17 10:00 Resp 16 05/20/17 10:00 BP 80/67 05/20/17 10:00 Pulse Ox 94 L 05/20/17 10:00 Intake & Output 05/19/17 05/20/17 05/20/17 18:59 06:59 18:59 Intake Total 621.698 6283.554 322.431 Output Total 590 425 550 Balance 651.142 9673.554 -227.569 Weight 47.6 kg 43.5 kg Intake: IV 340 1220 170 0.9 at KVO 240 220 70 Levofloxacin 500Mg-D5w 100 Pmx 500 mg In Dextrose/ Water 1 100ml.bag @ 100 mls/hr IVPB Q24H [facility] Rx#: [id number] Sodium Chloride 0.9% 1, 1000 000 ml @ 999 mls/hr IV . Q1H1M [facility] Rx#:[id number] levETIRAcetam IV 500 mg 100 In Sodium Chloride 0.9% 100 ml @ 400 mls/hr IVPB Q12HR [facility] Rx#:[id number] Intake, IV Titration 366.440 168.554 32.431 Amount Norepinephrin 4 mg-0.9% 234.625 168.554 0 Ns Pmx 4 mg In 250 ml @ Titrate IV .Q0M [facility] Rx#: [id number] Propofol 1,000 mg In 131.815 32.431 Empty Bag 1 bag @ Titrate IV .Q0M [facility] Rx#: [id number] Tube Feeding 100 270 120 Other 30 90 Output: Gastric Drainage 100 Urine 490 425 550 Other: Voiding Method Indwelling Catheter Indwelling Catheter Indwelling Catheter - Constitutional General appearance: Present: mild distress - Respiratory Respiratory: bilateral: diminished - Cardiovascular Rhythm: regular - Labs CBC & Chem 7: 05/20/17 04:19 05/20/17 04:19 Labs: Abnormal Lab Results - Last 24 Hours (Table) 05/19/17 05/19/17 05/19/17 Range/Units 11:56 18:31 18:45 WBC (3.8-10.6) k/uL RBC (4.30-5.90) m/uL MCV (80.0-100.0) fL Neutrophils # (1.3-7.7) k/uL Lymphocytes # (1.0-4.8) k/uL ABG pO2 (83-108) mmHg ABG HCO3 (21-25) mmol/L ABG Total CO2 (19-24) mmol/L ABG O2 Saturation (94-97) % Creatinine (0.66-1.25) mg/dL Glucose (74-99) mg/dL POC Glucose (mg/dL) 132 H 114 H 113 H (75-99) mg/dL Calcium (8.4-10.2) mg/dL 05/19/17 05/20/17 05/20/17 Range/Units 23:30 04:19 04:19 WBC 13.5 H (3.8-10.6) k/uL RBC 3.91 L (4.30-5.90) m/uL MCV 100.5 H (80.0-100.0) fL Neutrophils # 12.5 H (1.3-7.7) k/uL Lymphocytes # 0.4 L (1.0-4.8) k/uL ABG pO2 (83-108) mmHg ABG HCO3 (21-25) mmol/L ABG Total CO2 (19-24) mmol/L ABG O2 Saturation (94-97) % Creatinine 0.50 L (0.66-1.25) mg/dL Glucose 120 H (74-99) mg/dL POC Glucose (mg/dL) 133 H (75-99) mg/dL Calcium 7.9 L (8.4-10.2) mg/dL 05/20/17 05/20/17 Range/Units 05:17 08:19 WBC (3.8-10.6) k/uL RBC (4.30-5.90) m/uL MCV (80.0-100.0) fL Neutrophils # (1.3-7.7) k/uL Lymphocytes # (1.0-4.8) k/uL ABG pO2 61 L (83-108) mmHg ABG HCO3 26 H (21-25) mmol/L ABG Total CO2 27 H (19-24) mmol/L ABG O2 Saturation 91.5 L (94-97) % Creatinine (0.66-1.25) mg/dL Glucose (74-99) mg/dL POC Glucose (mg/dL) 115 H (75-99) mg/dL Calcium (8.4-10.2) mg/dL Microbiology - Last 24 Hours (Table) 05/18/17 01:25 Urine Culture - Final Urine,Catheterized Assessment and Plan Assessment: Assessment #1 acute on chronic respiratory failure secondary to COPD exacerbation #2 hypotension requiring vasopressors was Levophed #3 abnormal EKG showing nonspecific changes. #4 mildly abnormal cardiac enzymes was abnormal CK-MB and normal troponin Plan #1 the echocardiogram revealed normal LV function #2 from the cardiovascular standpoint of view, no need for any further cardiac workup. #3 we'll follow-up with the patient on when necessary case. Thank you for allowing us participate in his care
[2017-05-20 11:49] LABS: Glucose,Whole Blood 132 mg/dL (75-99)
[2017-05-20] MEDS: PIPERACILLIN-TAZOBACTAM 3.375 GM in DEXTROSE/WATER 1 50ML.BAG IVPB SCH ×2 (12:04→20:08)
[2017-05-20] MEDS: LEVOFLOXACIN 500MG-D5W PMX 500 MG in DEXTROSE/WATER 1 100ML.BAG IVPB SCH (13:04)
--- NOTE | 2017-05-20 13:27 | P.PN ---
Subjective Progress Note Date: 05/20/17 Principal diagnosis: Acute hypoxic respiratory failure secondary to COPD exacerbation, and acute CVA. A 66-year-old male patient with known history of severe COPD and the patient has been in a catabolic state for many years and he continues to smoke cigarettes on a daily basis. The patient has significant limitation in exercise capacity and the patient's baseline FEV1 is 33% of predicted with known severe hyperinflation on his chest x-rays as evident in his previous films from the office. The patient was doing relatively okay and his last evaluation my office was in November 2016. The patient came into the emergency department yesterday with worsening shortness of breath. He was in the ED approximately 2 days prior and the patient was having episodes of dysarthria and some weakness in his left face and slurred speech. He was also having some on and off weakness in his left upper and left lower extremity. He was having difficulty with ambulation due to increased weakness lower extremities bilaterally. The patient was seen in emergency department and the CAT scan of the brain was done that showed no acute abnormalities on 05/13/2017 and it showed stable atrophy with chronic small vessel ischemic changes. No hemorrhage was evident. The patient was discharged home and within next 24-48 hours his condition got worse and had to come back with altered mentation, left upper and left lower extremity weakness, left facial weakness, and slurred speech. Meanwhile his breathing got worse and he is actively bronchospastic and wheezy and short of breath. A blood gases was done emergency department and it showed no evidence of any hypercapnic respiratory failure. The patient was very anxious. He was brought into the ICU where he was given [id number] breathing treatments and he was started on IV Solu-Medrol high-dose. This morning I was able to put him on a BiPAP at a pressure of 8 over 4 cm of water. He is unable to tolerate higher pressures. He has excessive respiratory secretions. He is still able to swallow appropriately. I examined his swallow at the bedside and the patient did well. He has no chest pain. Is a congested cough. He has unable to speak of. This is in any rate his speech is garbled and slurred. He understands and comprehends very well. He is a bit anxious. He required Ativan overnight and currently will placed on Xanax. He is on oral aspirin. CAT scan of the brain was not repeated as the patient was unable to lay down flat because of his worsening shortness of breath and increased anxiety. Doppler of the carotids was done and showed 50% stenosis bilaterally in the internal carotid artery. The patient is currently not ICU and the family is at the bedside. Patient was seen by neurology yesterday. Suspect an acute right MCA distribution CVA. Patient was reevaluated today on 05/19/2017, remains on mechanical ventilation. His ventilator settings are tidal volume of 400, assist control rate of 20 FiO2 of 40% and PEEP of 5. Plateau pressure is about 18. Chest x-ray is mostly consistent with COPD/emphysema. ABG showed a pO2 of 75 pCO2 of 37 pH of 7.46. Basic metabolic profile is relatively normal. CBC showed WBC count of 20.1 hemoglobin is 13.6. Basic metabolic profile is relatively normal. Patient is scheduled to have repeat CT of the brain today, he was seen by cardiology for nonspecific EKG abnormalities. Patient continues to have mostly left-sided weakness secondary to his CVA in the middle cerebral artery distribution. Reevaluated today on 05/20/2017, patient remains on mechanical ventilations, basically on assist control mode, FiO2 is up to 50% because of relative drop in his pO2 on the ABG this morning. The rest of them remained the same. Patient is a bit anxious, restless, agitated, however he was on sedation interruption earlier when I saw him. He had to place him back on full sedation, otherwise the patient was not ventilating properly. Discussed his condition with family members including his and his daughter at bedside, and explained to them that the overall prognostic picture does not look too good. Patient is already DO NOT RESUSCITATE, and they are in the process of considering comfort care measures. Chest x-ray was reviewed and there is evidence of a new infiltrate in the right upper lobe could be a ventilator associated pneumonia, hence I recommended keeping him on Levaquin and I added Zosyn. No reason to add vancomycin because MRSA is not strongly suspected. Labs were reviewed pO2 is 61 pCO2 of 40 pH of 7.42 hence his FiO2 was increased from 40% to 50%. Patient is still requiring small dose of norepinephrine for low blood pressure, I recommended some fluid boluses to be given. His urine output was marginal last night, responded to fluid boluses and to Lasix early this morning. Objective - Vital Signs Vital signs: Vital Signs Temp 97.6 F 04/03/18 12:00 Pulse 122 H 05/20/17 13:00 Resp 20 05/20/17 13:00 BP 95/54 05/20/17 13:00 Pulse Ox 93 L 05/20/17 13:00 Intake & Output 05/19/17 05/20/17 05/20/17 18:59 06:59 18:59 Intake Total 659.958 9122.554 1513.522 Output Total 357 506 0598 Balance 404.788 9396.554 188.522 Weight 47.6 kg 43.5 kg Intake: IV 340 1220 1202.5 0.9 at KVO 240 220 90 Levofloxacin 500Mg-D5w 100 Pmx 500 mg In Dextrose/ Water 1 100ml.bag @ 100 mls/hr IVPB Q24H [facility] Rx#: [id number] Piperacillin-Tazobactam 3 12.5 .375 gm In Dextrose/Water 1 50ml.bag @ 12.5 mls/hr IVPB Q8H [facility] Rx#: [id number] Sodium Chloride 0.9% 1, 1000 1000 000 ml @ 999 mls/hr IV . Q1H1M [facility] Rx#:[id number] levETIRAcetam IV 500 mg 100 In Sodium Chloride 0.9% 100 ml @ 400 mls/hr IVPB Q12HR [facility] Rx#:[id number] Intake, IV Titration 366.440 168.554 51.022 Amount Norepinephrin 4 mg-0.9% 234.625 168.554 6.25 Ns Pmx 4 mg In 250 ml @ Titrate IV .Q0M [facility] Rx#: [id number] Propofol 1,000 mg In 131.815 44.772 Empty Bag 1 bag @ Titrate IV .Q0M [facility] Rx#: [id number] Tube Feeding 100 270 230 Other 30 90 30 Output: Gastric Drainage 100 Urine 725 879 7441 Other: Voiding Method Indwelling Catheter Indwelling Catheter Indwelling Catheter - Exam Physical Exam: Revealed a 66-year-old white male, cachectic looking, on mechanical ventilation, in no distress. Awake. But looks frail and chronically ill. HEENT:[Neck is supple.] [No neck masses.] [No thyromegaly.] [No JVD.] Moist mucous membranes. PERRLA, EOMI. Endotracheal tube is intact. Chest: [Diminished breath sounds at the bases, rhonchi and wheezes noted bilaterally especially on forced expiratory maneuver. Prolonged expiratory phase noted. Patient has a barrel chest.] Cardiac Exam: [Normal S1 and S2, no S3 gallop, no murmur.] Abdomen: [Soft, nontender, no megaly, no rebound, no guarding, normal bowel sounds.] Extremities: [No clubbing, no edema, no cyanosis.] Neurological Exam: Patient is arousable, and comprehending what he is being told , speech cannot be assessed. Left-sided weakness is noted. Pupils are equally reactive to light. Left facial droop is noted. Unable to assess gait. Psychiatric: Could not be assessed, patient is on mechanical ventilation. Musculoskeletal: Left-sided weakness as noted above. Lymphatics: No lymphadenopathy. - Labs CBC & Chem 7: 05/20/17 04:05/20/17 12:25 Labs: Abnormal Lab Results - Last 24 Hours (Table) 05/19/17 05/19/17 05/19/17 Range/Units 18:31 18:45 23:30 WBC (3.8-10.6) k/uL RBC (4.30-5.90) m/uL MCV (80.0-100.0) fL Neutrophils # (1.3-7.7) k/uL Lymphocytes # (1.0-4.8) k/uL ABG pO2 (83-108) mmHg ABG HCO3 (21-25) mmol/L ABG Total CO2 (19-24) mmol/L ABG O2 Saturation (94-97) % Potassium (3.5-5.1) mmol/L Creatinine (0.66-1.25) mg/dL Glucose (74-99) mg/dL POC Glucose (mg/dL) 114 H 113 H 133 H (75-99) mg/dL Calcium (8.4-10.2) mg/dL 05/20/17 05/20/17 05/20/17 Range/Units 04:19 04:19 05:17 WBC 13.5 H (3.8-10.6) k/uL RBC 3.91 L (4.30-5.90) m/uL MCV 100.5 H (80.0-100.0) fL Neutrophils # 12.5 H (1.3-7.7) k/uL Lymphocytes # 0.4 L (1.0-4.8) k/uL ABG pO2 (83-108) mmHg ABG HCO3 (21-25) mmol/L ABG Total CO2 (19-24) mmol/L ABG O2 Saturation (94-97) % Potassium (3.5-5.1) mmol/L Creatinine 0.50 L (0.66-1.25) mg/dL Glucose 120 H (74-99) mg/dL POC Glucose (mg/dL) 115 H (75-99) mg/dL Calcium 7.9 L (8.4-10.2) mg/dL 05/20/17 05/20/17 05/20/17 Range/Units 08:19 11:47 12:25 WBC (3.8-10.6) k/uL RBC (4.30-5.90) m/uL MCV (80.0-100.0) fL Neutrophils # (1.3-7.7) k/uL Lymphocytes # (1.0-4.8) k/uL ABG pO2 61 L (83-108) mmHg ABG HCO3 26 H (21-25) mmol/L ABG Total CO2 27 H (19-24) mmol/L ABG O2 Saturation 91.5 L (94-97) % Potassium 3.1 L (3.5-5.1) mmol/L Creatinine (0.66-1.25) mg/dL Glucose (74-99) mg/dL POC Glucose (mg/dL) 132 H (75-99) mg/dL Calcium (8.4-10.2) mg/dL Microbiology - Last 24 Hours (Table) 05/18/17 19:23 Gram Stain - Final Sputum Sputum Culture - Final 05/18/17 01:25 Urine Culture - Final Urine,Catheterized Assessment and Plan Assessment: Impression: 1 acute hypoxic respiratory failure secondary to severe end-stage COPD exacerbation. 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 CT of the brain is pending. 3 severe end-stage COPD, FEV1 is in the range of 33%. 4 history of hypertension, 5 history of benign prostatic hypertrophy 6 tobacco dependence syndrome 7 chronic weight loss and cachexia secondary to COPD and poor nutritional status. Protein calorie malnutrition is suspected. 8 hypertension, most likely hypovolemic in nature, strongly doubt sepsis. Could also be neurogenic. In nature. Hence the patient will be given more fluid boluses, and we'll titrate the norepinephrine accordingly. 9 acute ventilator associated pneumonia/VAP, hence his Zosyn was added to Levaquin. Recommendation: Continue present treatment plan including ventilatory support, antibiotics, steroids, enteral feeding, CT of the brain from yesterday was reviewed and basically unremarkable. No acute process was appreciated., continue GI and DVT prophylaxis, continue nutritional support, patient is clearly not ready for any form of weaning at this point. Prognosis remains extremely poor and guarded. Discussed his condition with his daughter at bedside. Family is well aware of the poor prognostic picture, and may consider comfort care measures in the next 24-48 hours. Critical care time is 45 minutes. Time with Patient: Greater than 30
[2017-05-20] MEDS: POTASSIUM BICARBONATE/CIT AC 20 MEQ TABLET.EFF NG-TUBE SCH ×2 (13:50→15:12)
[2017-05-20] MEDS: NOREPINEPHRIN 4 MG-0.9% NS PMX 4 MG/250 ML ML IV SCH (14:18)
[2017-05-20] MEDS ORDERED: POTASSIUM BICARBONATE/CIT AC 20 MEQ TABLET.EFF NG-TUBE SCH (18:00)
[2017-05-20 18:13] LABS: Glucose,Whole Blood 128 mg/dL (75-99)
[2017-05-20] MEDS: DOXAZOSIN 4 MG TAB PO SCH (20:28)
--- NOTE | 2017-05-20 20:29 | P.PN ---
Subjective Progress Note Date: 05/20/17 This patient is a 66-year-old male with known history of asthma and severe COPD exacerbation. Patient was admitted with acute on chronic rest [place] failure. Neurology was consulted for evaluation of left-sided weakness as well as left- sided facial droop. He underwent an initial computed tomography scan of the brain which failed to reveal any acute changes. Patient developed respiratory distress and was transferred into the intensive care unit where he he was treated aggressively with IV steroids and breathing treatments. Patient continued to decompensate and did require intubation. Patient is currently seen in the intensive care unit on the ventilator. He is currently on a Diprivan drip. The patient was able to go for a repeat computed tomography scan of the brain today. This CAT scan of the brain reveals no acute intracranial hemorrhage or midline shift. 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 Diffuse age-related cerebral atrophy and chronic small vessel ischemic changes were noted. 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 As noted the CAT scan today fails to reveal any evidence of acute stroke or hemorrhage. Patient is recovering from acute hypoxic rest [place] failure secondary to severe end-stage COPD exacerbation. Pulmonary medicine is following his condition closely. The patient underwent routine EEG yesterday which was reviewed yesterday evening. His EEG was abnormal showing some right temporal lobe epileptiform discharges. He was started on Keppra yesterday 500 mg IV piggyback every 12 hours. Patient was seen by pulmonary medicine today. His overall prognosis remains extremely poor. This was discussed today with his daughter and the second grade teacher today regarding his overall condition and poor prognosis. Apparently his daughter and family members will consider possibly providing comfort care measures with the patient in the next 24-48 hours. The patient is not showing much improvement today neurologically. As noted above his overall prognosis remains very guarded. Objective - Vital Signs Vital signs: Vital Signs Temp 98.1 F 05/20/17 16:00 Pulse 124 H 05/20/17 16:00 Resp 24 05/20/17 16:00 BP 92/55 05/20/17 16:00 Pulse Ox 93 L 05/20/17 16:00 Intake & Output 05/19/17 05/20/17 05/20/17 18:59 06:59 18:59 Intake Total 302.244 5625.554 1719.363 Output Total 240 305 9808 Balance 662.702 1913.554 159.363 Weight 47.6 kg 43.5 kg Intake: IV 340 1220 1300.0 0.9 at KVO 240 220 150 Levofloxacin 500Mg-D5w 100 Pmx 500 mg In Dextrose/ Water 1 100ml.bag @ 100 mls/hr IVPB Q24H [facility] Rx#: [id number] Piperacillin-Tazobactam 3 50.0 .375 gm In Dextrose/Water 1 50ml.bag @ 12.5 mls/hr IVPB Q8H [facility] Rx#: [id number] Sodium Chloride 0.9% 1, 1000 1000 000 ml @ 999 mls/hr IV . Q1H1M [facility] Rx#:[id number] levETIRAcetam IV 500 mg 100 In Sodium Chloride 0.9% 100 ml @ 400 mls/hr IVPB Q12HR [facility] Rx#:[id number] Intake, IV Titration 366.440 168.554 119.363 Amount Norepinephrin 4 mg-0.9% 234.625 168.554 19.125 Ns Pmx 4 mg In 250 ml @ Titrate IV .Q0M [facility] Rx#: [id number] Propofol 1,000 mg In 131.815 100.238 Empty Bag 1 bag @ Titrate IV .Q0M [facility] Rx#: [id number] Tube Feeding 100 270 270 Other 30 90 30 Output: Gastric Drainage 100 Urine [phone] Other: Voiding Method Indwelling Catheter Indwelling Catheter Indwelling Catheter - Exam Physical Examination: PHYSICAL EXAMINATION: Patient is resting comfortably in bed. Patient is intubated on the ventilator in the ICU today. VITAL SIGNS: Blood pressure is [92/55]. Heart rate is [124]. Respiration is [24] . Temperature is [98.1]. HEENT: Head is atraumatic, neck is supple, there were no carotid bruits. CHEST: Lungs are clear to auscultation and percussion. CARDIAC: S1, S2 normal rate and rhythm. There is no murmur. ABDOMEN: Soft and nontender. Bowel sounds are present. EXTREMITIES: There is no pedal edema. Peripheral pulses are present. Neurological examination: Patient's neurological examination is unchanged from yesterday. He has left- sided hemiparesis with mild left facial droop and slurred speech. Patient is currently intubated on IV sedation with propofol. - Labs CBC & Chem 7: 05/20/17 04:19 05/20/17 17:10 Labs: Abnormal Lab Results - Last 24 Hours (Table) 05/19/17 05/19/17 05/19/17 Range/Units 18:31 18:45 23:30 WBC (3.8-10.6) k/uL RBC (4.30-5.90) m/uL MCV (80.0-100.0) fL Neutrophils # (1.3-7.7) k/uL Lymphocytes # (1.0-4.8) k/uL ABG pO2 (83-108) mmHg ABG HCO3 (21-25) mmol/L ABG Total CO2 (19-24) mmol/L ABG O2 Saturation (94-97) % Potassium (3.5-5.1) mmol/L Creatinine (0.66-1.25) mg/dL Glucose (74-99) mg/dL POC Glucose (mg/dL) 114 H 113 H 133 H (75-99) mg/dL Calcium (8.4-10.2) mg/dL 05/20/17 05/20/17 05/20/17 Range/Units 04:19 04:19 05:17 WBC 13.5 H (3.8-10.6) k/uL RBC 3.91 L (4.30-5.90) m/uL MCV 100.5 H (80.0-100.0) fL Neutrophils # 12.5 H (1.3-7.7) k/uL Lymphocytes # 0.4 L (1.0-4.8) k/uL ABG pO2 (83-108) mmHg ABG HCO3 (21-25) mmol/L ABG Total CO2 (19-24) mmol/L ABG O2 Saturation (94-97) % Potassium (3.5-5.1) mmol/L Creatinine 0.50 L (0.66-1.25) mg/dL Glucose 120 H (74-99) mg/dL POC Glucose (mg/dL) 115 H (75-99) mg/dL Calcium 7.9 L (8.4-10.2) mg/dL 05/20/17 05/20/17 05/20/17 Range/Units 08:19 11:47 12:25 WBC (3.8-10.6) k/uL RBC (4.30-5.90) m/uL MCV (80.0-100.0) fL Neutrophils # (1.3-7.7) k/uL Lymphocytes # (1.0-4.8) k/uL ABG pO2 61 L (83-108) mmHg ABG HCO3 26 H (21-25) mmol/L ABG Total CO2 27 H (19-24) mmol/L ABG O2 Saturation 91.5 L (94-97) % Potassium 3.1 L (3.5-5.1) mmol/L Creatinine (0.66-1.25) mg/dL Glucose (74-99) mg/dL POC Glucose (mg/dL) 132 H (75-99) mg/dL Calcium (8.4-10.2) mg/dL Microbiology - Last 24 Hours (Table) 05/18/17 19:23 Gram Stain - Final Sputum Sputum Culture - Final Assessment and Plan (1) Acute right arterial ischemic stroke, MCA (middle cerebral artery) Current Visit: Yes Status: Acute Code(s): I63.511 - CEREB INFRC D/T UNSP OCCLS OR STENOS OF RIGHT MID CEREB ART SNOMED Code(s): 162739543 (2) Aphasia Current Visit: Yes Status: Acute Code(s): R47.01 - APHASIA SNOMED Code(s) : 76065115 (3) Gait disorder Current Visit: Yes Status: Acute Code(s): R26.9 - UNSPECIFIED ABNORMALITIES OF GAIT AND MOBILITY SNOMED Code(s): 00770555 (4) Shortness of breath Current Visit: Yes Status: Acute Code(s): R06.02 - SHORTNESS OF BREATH SNOMED Code(s): 423632749 Plan: This patient is a 66-year-old male who was seen today in the intensive care unit on the ventilator. Patient developed severe respiratory distress secondary to advanced COPD and was intubated for treatment of acute on chronic respiratory failure. He underwent recent computed tomography scan of the brain as he demonstrated evidence of left-sided hemiparesthesias suggesting acute right MCA stroke. Recent CAT scan was negative for any evidence of acute stroke or hemorrhage. And went routine EEG yesterday which was reviewed and did reveal some right temporal lobe sharp waves. He was started on Keppra for treatment of the possible seizure focus. Clinical he is not showing any improvement in his neurological status. He continues to show evidence of worsening acute on chronic respiratory failure. Pulmonary medicine did discuss his poor prognosis today with daughter at bedside. We'll await the family decision regarding possibly considering comfort care measures for the patient. So overall prognosis at this time remains very guarded. We will continue close neurological follow-up for this patient in the intensive care unit.
[2017-05-20] MEDS ORDERED: TERBUTALINE 1 MG/ML VIAL SQ ONE (22:48)
[2017-05-20] MEDS ORDERED: POTASSIUM BICARBONATE/CIT AC 20 MEQ TABLET.EFF PO SCH (23:00)
[2017-05-20 23:41] LABS: Glucose,Whole Blood 121 mg/dL (75-99)
--- NOTE | 2017-05-21 00:09 | P.PN ---
Subjective Progress Note Date: 05/19/17 Principal diagnosis: COPD exacerbation Patient is a 66-year-old male with a known history of asthma, COPD, emphysema came to ER with complaints of worsening shortness of breath for the past few days. Patient came to ER about 2 days prior to admission and was having left- sided on of weakness and facial droop. Patient had CT head which showed no acute process. Patient wanted to be sent home at the time and was having worsening shortness of breath and came back to the hospital for further evaluation and treatment. Patient was easily on 100% nonrebreather and was transferred to ICU. Patient otherwise currently on BiPAP machine. Pulmonary and neurology is following. Chest x-ray on admission showed COPD and possible atelectatic changes in the right upper lobe also. Patient is being continued currently on IV steroids and breathing treatments. Repeat CT head could not be ordered due to patient unable to lie flat. Neurology recommended MRI of the brain Repeat chest x-ray showed severe COPD changes today. 05/19/2017 Patient went into respiratory distress and was subsequently intubated. Currently on mechanical ventilator. No fever no chills. Patient is being continued on IV sorbitol and breathing treatments and antibiotics. Chest x-ray showed radiographic sequele of COPD and pulmonary hypertension. EKG showed deep levels seizure activity 2-D echo showed normal ejection fraction and normal titer and a systolic pressure. Pulmonary, cardiology and neurology is following. Discussed with family in detail at bedside. Review of systems could not be obtained from the patient. Active Medications Generic Name Dose Route Start Last Admin Trade Name Freq PRN Reason Stop Dose Admin Hydrocodone Bitart/Acetaminophen 1 each 05/17/17 13:10 05/18/17 03:58 [place] 7.5-325 PO 1 each Q8H PRN Administration Pain Acetylcysteine 200 mg 05/18/17 13:30 05/18/17 14:10 Mucomyst INHALATION 200 mg RT-DAILY [facility] Administration Albuterol/Ipratropium 3 ml 05/17/17 13:10 Duoneb 0.5 Mg-3 Mg/3 Ml Soln INHALATION RT-QID PRN Shortness Of Breath Or Wheezing Albuterol/Ipratropium 3 ml 05/17/17 16:00 05/18/17 14:10 Duoneb 0.5 Mg-3 Mg/3 Ml Soln INHALATION 3 ml RT-QID [facility] Administration Alprazolam 0.5 mg 05/18/17 09:04 05/18/17 09:21 Xanax PO 0.5 mg TID PRN Administration Anxiety Aspirin 325 mg 05/18/17 10:15 05/18/17 10:40 Aspirin PO 325 mg DAILY [facility] Administration Atenolol 25 mg 05/18/17 09:00 05/18/17 10:15 Tenormin PO Not Given DAILY [facility] Budesonide 1 mg 05/17/17 14:00 05/18/17 08:55 Pulmicort INHALATION 1 mg RT-BID [facility] Administration Doxazosin Mesylate 4 mg 05/17/17 21:00 05/17/17 20:26 Cardura PO 4 mg HS [facility] Administration Famotidine 20 mg 05/17/17 13:15 05/18/17 08:14 Pepcid PO 20 mg DAILY [facility] Administration Formoterol Fumarate 20 mcg 05/17/17 14:00 05/18/17 08:55 Perforomist INHALATION 20 mcg RT-BID [facility] Administration Guaifenesin 1,200 mg 05/18/17 18:00 Mucinex PO Q12H [facility] Heparin Sodium (Porcine) 5,000 unit 05/17/17 13:15 05/18/17 09:22 Heparin SQ 5,000 unit Q12HR [facility] Administration Levofloxacin 500 mg/ IV 100 mls @ 100 mls/hr 05/18/17 14:00 05/18/17 15:29 Solution IVPB 100 mls/hr Q24H [facility] Administration Insulin Aspart 0 unit 05/18/17 07:30 05/18/17 12:19 Novolog SQ 3 unit ACHS [facility] Administration Protocol Methylprednisolone Sodium Succinate 100 mg 05/18/17 10:00 05/18/17 09:22 Solu-Medrol IV 100 mg Q6HR [facility] Administration Naloxone HCl 0.2 mg 05/17/17 23:48 Narcan IV Q2M PRN Opioid Reversal Nicotine 1 patch 05/17/17 13:15 05/18/17 08:14 Habitrol 14mg/24hr Patch TRANSDERM 1 patch DAILY [facility] Administration Pantoprazole Sodium 40 mg 05/18/17 07:30 05/18/17 08:13 Protonix PO 40 mg AC-BRKFST [facility] Administration Tamsulosin HCl 0.4 mg 05/18/17 08:30 05/18/17 08:14 Flomax PO 0.4 mg PC-BRKFST [facility] Administration Theophylline 300 mg 05/17/17 21:00 05/18/17 08:15 Buddy-24 PO 300 mg BID [facility] Administration Objective - Vital Signs Vital signs: Vital Signs Temp 97.5 F L 05/19/17 16:00 Pulse 63 05/19/17 19:53 Resp 20 05/19/17 19:00 BP 128/81 05/19/17 19:00 Pulse Ox 95 05/19/17 19:00 Intake & Output 05/19/17 05/19/17 05/20/17 06:59 18:59 06:59 Intake Total 2755.700 736.440 110 Output Total 192 590 70 Balance 2563.700 146.440 40 Weight 47.6 kg 47.6 kg Intake: IV 2690 340 40 0.9 at KVO 2690 240 40 Levofloxacin 500Mg-D5w 100 Pmx 500 mg In Dextrose/ Water 1 100ml.bag @ 100 mls/hr IVPB Q24H [facility] Rx#: [id number] Intake, IV Titration 65.700 266.440 Amount Norepinephrin 4 mg-0.9% 32.875 234.625 Ns Pmx 4 mg In 250 ml @ Titrate IV .Q0M [facility] Rx#: [id number] Propofol 1,000 mg In 32.825 31.815 Empty Bag 1 bag @ Titrate IV .Q0M [facility] Rx#: [id number] Tube Feeding 100 40 Other 30 30 Output: Gastric Drainage 100 Urine 192 490 70 Other: Voiding Method Indwelling Catheter Indwelling Catheter - Exam PHYSICAL EXAMINATION: Patient is lying in the bed comfortably, no acute distress, awake alert and oriented. Currently on BiPAP. HEENT: Normocephalic. Neck is supple. Pupils reactive. Nostrils clear. Oral cavity is moist. Ears reveal no drainage. Neck reveals no JVD, carotid bruits, or thyromegaly. CHEST EXAMINATION: Trachea is central. Symmetrical expansion. Barrel chest. Bilateral diminished breath sounds and reveals. Expiratory wheezing. CARDIAC: Normal S1, S2 with no gallops. No murmurs ABDOMEN: Soft. Bowel sounds normal. No organomegaly. No abdominal bruits. Extremities: reveal no edema. No clubbing or cyanosis Neurologically awake, alert, oriented x3 with well-coordinated movements. Left- sided weakness with motor strength 3 / 5 Skin: No rash or skin lesions. Psychiatric: Cooperative. Could not be assessed completely Musculoskeletal: No joint swelling or deformity. Normal range of motion. - Labs CBC & Chem 7: 05/20/17 04:19 05/20/17 21:04 Labs: Abnormal Lab Results - Last 24 Hours (Table) 05/18/17 05/18/17 05/19/17 Range/Units 18:19 20:54 00:13 WBC (3.8-10.6) k/uL RBC (4.30-5.90) m/uL Neutrophils # (1.3-7.7) k/uL Lymphocytes # (1.0-4.8) k/uL ABG pH (7.35-7.45) ABG pCO2 46 H (35-45) mmHg ABG pO2 80 L (83-108) mmHg ABG HCO3 30 H (21-25) mmol/L ABG Total CO2 32 H (19-24) mmol/L Sodium (137-145) mmol/L Creatinine (0.66-1.25) mg/dL Glucose (74-99) mg/dL POC Glucose (mg/dL) 128 H 127 H (75-99) mg/dL Calcium (8.4-10.2) mg/dL CK-MB (CK-2) (0.0-2.4) ng/mL 05/19/17 05/19/17 05/19/17 Range/Units 00:25 02:36 02:36 WBC 20.1 H (3.8-10.6) k/uL RBC 3.97 L (4.30-5.90) m/uL Neutrophils # 18.8 H (1.3-7.7) k/uL Lymphocytes # 0.5 L (1.0-4.8) k/uL ABG pH (7.35-7.45) ABG pCO2 (35-45) mmHg ABG pO2 (83-108) mmHg ABG HCO3 (21-25) mmol/L ABG Total CO2 (19-24) mmol/L Sodium 135 L (137-145) mmol/L Creatinine 0.47 L (0.66-1.25) mg/dL Glucose 145 H (74-99) mg/dL POC Glucose (mg/dL) (75-99) mg/dL Calcium 7.8 L (8.4-10.2) mg/dL CK-MB (CK-2) 3.5 H* (0.0-2.4) ng/mL 05/19/17 05/19/17 05/19/17 Range/Units 05:09 06:09 06:11 WBC (3.8-10.6) k/uL RBC (4.30-5.90) m/uL Neutrophils # (1.3-7.7) k/uL Lymphocytes # (1.0-4.8) k/uL ABG pH 7.46 H (7.35-7.45) ABG pCO2 (35-45) mmHg ABG pO2 75 L (83-108) mmHg ABG HCO3 26 H (21-25) mmol/L ABG Total CO2 27 H (19-24) mmol/L Sodium (137-145) mmol/L Creatinine (0.66-1.25) mg/dL Glucose (74-99) mg/dL POC Glucose (mg/dL) 124 H (75-99) mg/dL Calcium (8.4-10.2) mg/dL CK-MB (CK-2) 3.3 H* (0.0-2.4) ng/mL 05/19/17 05/19/17 05/19/17 Range/Units 11:56 18:31 18:45 WBC (3.8-10.6) k/uL RBC (4.30-5.90) m/uL Neutrophils # (1.3-7.7) k/uL Lymphocytes # (1.0-4.8) k/uL ABG pH (7.35-7.45) ABG pCO2 (35-45) mmHg ABG pO2 (83-108) mmHg ABG HCO3 (21-25) mmol/L ABG Total CO2 (19-24) mmol/L Sodium (137-145) mmol/L Creatinine (0.66-1.25) mg/dL Glucose (74-99) mg/dL POC Glucose (mg/dL) 132 H 114 H 113 H (75-99) mg/dL Calcium (8.4-10.2) mg/dL CK-MB (CK-2) (0.0-2.4) ng/mL Microbiology - Last 24 Hours (Table) 05/18/17 01:25 Urine Culture - Final Urine,Catheterized 05/18/17 19:23 Gram Stain - Preliminary Sputum Sputum Culture - Preliminary Assessment and Plan Assessment: Acute hypoxic respiratory failure secondary to COPD exacerbation. Currently on mechanical ventilator Acute COPD exacerbation Severe COPD with FEV1 of 33% of predicted Left-sided weakness with possible acute CVA, right MCA distribution. Repeat CT head could not be done due to respiratory status History of smoking Hypertension BPH Moderate to severe protein calorie malnutrition DVT prophylaxis Plan: Patient be continued on IV steroids, breathing treatments.. Carotid duplex and 2-D echocardiogram was ordered. Patient will be continued on aspirin. MRI of the brain once breathing status improves. We will continue the current management and follow up closely. Prognosis is guarded with advanced COPD and multiple other medical problems. Discussed with his family at bedside in detail. Time with Patient: Greater than 30
[2017-05-21] MEDS: INSULIN ASPART 100 UNIT/ML 1 ML 10 ML VIAL SQ SCH ×4 (00:14→18:00)
--- NOTE | 2017-05-21 00:16 | P.PN ---
Subjective Progress Note Date: 05/20/17 Principal diagnosis: COPD exacerbation Patient is a 66-year-old male with a known history of asthma, COPD, emphysema came to ER with complaints of worsening shortness of breath for the past few days. Patient came to ER about 2 days prior to admission and was having left- sided on of weakness and facial droop. Patient had CT head which showed no acute process. Patient wanted to be sent home at the time and was having worsening shortness of breath and came back to the hospital for further evaluation and treatment. Patient was easily on 100% nonrebreather and was transferred to ICU. Patient otherwise currently on BiPAP machine. Pulmonary and neurology is following. Chest x-ray on admission showed COPD and possible atelectatic changes in the right upper lobe also. Patient is being continued currently on IV steroids and breathing treatments. Repeat CT head could not be ordered due to patient unable to lie flat. Neurology recommended MRI of the brain Repeat chest x-ray showed severe COPD changes today. 05/19/2017 Patient went into respiratory distress and was subsequently intubated. Currently on mechanical ventilator. No fever no chills. Patient is being continued on IV sorbitol and breathing treatments and antibiotics. Chest x-ray showed radiographic sequele of COPD and pulmonary hypertension. EKG showed deep levels seizure activity 2-D echo showed normal ejection fraction and normal titer and a systolic pressure. Pulmonary, cardiology and neurology is following. Discussed with family in detail at bedside. 05/20/2017 Patient remained on mechanical ventilator. Patient became agitated with sedation interruption and is being continued on methadone. Currently. Patient still requiring pressors support otherwise area cardiology recommends Marry management. Chest showed evidence of new infiltrate in the right upper lobe with possible pneumonia. Patient is being carried on antibiotics at this time. Currently on Levaquin and Zosyn. Patient was given IV fluid boluses and is being continued on continuous IV hydration. Patient was started on a private due to seizure activity and the EEG. Patient's code status is DO NOT RESUSCITATE. Upon discussing, family is considering for comfort care. Patient is being followed by cardiology and neurology and pulmonary. Review of systems could not be obtained from the patient. Active Medications Active Medications Generic Name Dose Route Start Last Admin Trade Name Freq PRN Reason Stop Dose Admin Hydrocodone Bitart/Acetaminophen 1 each 05/17/17 13:10 05/18/17 03:58 [place] 7.5-325 PO 1 each Q8H PRN Administration Pain Acetylcysteine 200 mg 05/18/17 13:30 05/20/17 07:08 Mucomyst INHALATION 200 mg RT-DAILY [facility] Administration Albuterol/Ipratropium 3 ml 05/17/17 13:10 05/20/17 03:31 Duoneb 0.5 Mg-3 Mg/3 Ml Soln INHALATION 3 ml RT-QID PRN Administration Shortness Of Breath Or Wheezing Albuterol/Ipratropium 3 ml 05/17/17 16:00 05/20/17 19:24 Duoneb 0.5 Mg-3 Mg/3 Ml Soln INHALATION 3 ml RT-QID [facility] Administration Alprazolam 0.5 mg 05/18/17 09:04 05/18/17 17:40 Xanax PO 0.5 mg TID PRN Administration Anxiety Aspirin 325 mg 05/18/17 10:15 05/20/17 08:50 Aspirin PO 325 mg DAILY [facility] Administration Budesonide 1 mg 05/17/17 14:00 05/20/17 19:24 Pulmicort INHALATION 1 mg RT-BID [facility] Administration Chlorhexidine Gluconate 15 ml 05/18/17 21:00 05/20/17 20:27 Peridex MUCOUS MEM 15 ml BID [facility] Administration Doxazosin Mesylate 4 mg 05/17/17 21:00 05/20/17 20:28 Cardura PO 4 mg HS [facility] Administration Formoterol Fumarate 20 mcg 05/17/17 14:00 05/20/17 19:24 Perforomist INHALATION 20 mcg RT-BID [facility] Administration Guaifenesin 1,200 mg 05/18/17 18:00 05/20/17 17:51 Mucinex PO Not Given Q12H [facility] Heparin Sodium (Porcine) 5,000 unit 05/19/17 16:00 05/20/17 15:12 Heparin SQ 5,000 unit Q8HR [facility] Administration Levofloxacin 500 mg/ IV 100 mls @ 100 mls/hr 05/18/17 14:00 05/20/17 13:04 Solution IVPB 100 mls/hr Q24H [facility] Administration Propofol 1,000 mg/ IV Solution 100 mls @ 0 mls/hr 05/18/17 19:00 05/20/17 20: 08 IV 58.23 mcg/kg/min .Q0M [facility] 15.2 mls/hr Protocol Administration Titrate Norepinephrine Bitartrate 4 mg in 250 mls @ 0 mls/hr 05/18/17 22:15 05/20/17 20:28 Levophed-0.9% Nacl 4 Mg/250ml Pmx IV 1.5 mcg/min .Q0M [facility] 5.625 mls/hr Protocol Titration Titrate Levetiracetam 500 mg/ Sodium 105 mls @ 400 mls/hr 05/19/17 21:00 05/20/17 20: 28 Chloride IVPB 400 mls/hr Q12HR [facility] Administration Piperacillin/Tazobactam/ 50 mls @ 12.5 mls/hr 05/20/17 12:00 05/20/17 20:08 Dextrose 3.375 gm/ IV Solution IVPB 12.5 mls/hr Q8H [facility] Administration Insulin Aspart 0 unit 05/19/17 00:00 05/20/17 18:25 Novolog SQ Not Given Q6H [facility] Protocol Methylprednisolone Sodium Succinate 60 mg 05/19/17 12:00 05/20/17 17:51 Solu-Medrol IV 60 mg Q6HR [facility] Administration Miscellaneous Information 1 each 05/20/17 05:58 Potassium Per Protocol MISCELLANE DAILY PRN Per Protocol Protocol Naloxone HCl 0.2 mg 05/17/17 23:48 Narcan IV Q2M PRN Opioid Reversal Nicotine 1 patch 05/17/17 13:15 05/20/17 08:50 Habitrol 14mg/24hr Patch TRANSDERM 1 patch DAILY [facility] Administration Pantoprazole Sodium 40 mg 05/19/17 09:00 05/20/17 20:27 Protonix IVP 40 mg BID [facility] Administration Tamsulosin HCl 0.4 mg 05/18/17 08:30 05/20/17 08:02 Flomax PO Not Given PC-BRKFST [facility] Theophylline 300 mg 05/17/17 21:00 05/20/17 20:28 Buddy-24 PO 300 mg BID [facility] Administration Objective - Vital Signs Vital signs: Vital Signs Temp 99.4 F 05/20/17 22:00 Pulse 129 H 05/20/17 22:00 Resp 25 H 05/20/17 22:00 BP 93/54 05/20/17 22:00 Pulse Ox 94 L 05/20/17 22:00 Intake & Output 05/20/17 05/20/17 05/21/17 06:59 18:59 06:59 Intake Total 3876.240 3099.613 374.858 Output Total 425 1652 190 Balance 1323.554 359.613 184.858 Weight 43.5 kg Intake: IV 1220 1340.0 205.0 0.9 at KVO 220 190 80 Piperacillin-Tazobactam 3 50.0 25.0 .375 gm In Dextrose/Water 1 50ml.bag @ 12.5 mls/hr IVPB Q8H [facility] Rx#: [id number] Sodium Chloride 0.9% 1, 1000 1000 000 ml @ 999 mls/hr IV . Q1H1M [facility] Rx#:[id number] levETIRAcetam IV 500 mg 100 100 In Sodium Chloride 0.9% 100 ml @ 400 mls/hr IVPB Q12HR [facility] Rx#:[id number] Intake, IV Titration 168.554 181.613 89.858 Amount Norepinephrin 4 mg-0.9% 168.554 81.375 15.125 Ns Pmx 4 mg In 250 ml @ Titrate IV .Q0M [facility] Rx#: [id number] Propofol 1,000 mg In 100.238 74.733 Empty Bag 1 bag @ Titrate IV .Q0M [facility] Rx#: [id number] Tube Feeding 270 430 80 Other 90 60 Output: Urine 425 1652 190 Other: Voiding Method Indwelling Catheter Indwelling Catheter # Voids 1 - Exam PHYSICAL EXAMINATION: Patient is lying in the bed comfortably, no acute distress, currently sedated and on mechanical ventilator HEENT: Normocephalic. Neck is supple. Pupils reactive. Nostrils clear. Oral cavity is moist. Ears reveal no drainage. Neck reveals no JVD, carotid bruits, or thyromegaly. CHEST EXAMINATION: Trachea is central. Symmetrical expansion. Barrel chest. Bilateral diminished breath sounds and reveals. No wheezing CARDIAC: Normal S1, S2 with no gallops. No murmurs ABDOMEN: Soft. Bowel sounds normal. No organomegaly. No abdominal bruits. Extremities: reveal no edema. No clubbing or cyanosis Neurologically . Patient is currently sedated. Could not be assessed completely Skin: No rash or skin lesions. Psychiatric: Cooperative. Could not be assessed completely Musculoskeletal: No joint swelling or deformity. Normal range of motion. - Labs CBC & Chem 7: 05/20/17 04:19 05/20/17 21:04 Labs: Abnormal Lab Results - Last 24 Hours (Table) 05/19/17 05/20/17 05/20/17 Range/Units 23:30 04:19 04:19 WBC 13.5 H (3.8-10.6) k/uL RBC 3.91 L (4.30-5.90) m/uL MCV 100.5 H (80.0-100.0) fL Neutrophils # 12.5 H (1.3-7.7) k/uL Lymphocytes # 0.4 L (1.0-4.8) k/uL ABG pO2 (83-108) mmHg ABG HCO3 (21-25) mmol/L ABG Total CO2 (19-24) mmol/L ABG O2 Saturation (94-97) % Potassium (3.5-5.1) mmol/L Creatinine 0.50 L (0.66-1.25) mg/dL Glucose 120 H (74-99) mg/dL POC Glucose (mg/dL) 133 H (75-99) mg/dL Calcium 7.9 L (8.4-10.2) mg/dL 05/20/17 05/20/17 05/20/17 Range/Units 05:17 08:19 11:47 WBC (3.8-10.6) k/uL RBC (4.30-5.90) m/uL MCV (80.0-100.0) fL Neutrophils # (1.3-7.7) k/uL Lymphocytes # (1.0-4.8) k/uL ABG pO2 61 L (83-108) mmHg ABG HCO3 26 H (21-25) mmol/L ABG Total CO2 27 H (19-24) mmol/L ABG O2 Saturation 91.5 L (94-97) % Potassium (3.5-5.1) mmol/L Creatinine (0.66-1.25) mg/dL Glucose (74-99) mg/dL POC Glucose (mg/dL) 115 H 132 H (75-99) mg/dL Calcium (8.4-10.2) mg/dL 05/20/17 05/20/17 Range/Units 12:25 18:11 WBC (3.8-10.6) k/uL RBC (4.30-5.90) m/uL MCV (80.0-100.0) fL Neutrophils # (1.3-7.7) k/uL Lymphocytes # (1.0-4.8) k/uL ABG pO2 (83-108) mmHg ABG HCO3 (21-25) mmol/L ABG Total CO2 (19-24) mmol/L ABG O2 Saturation (94-97) % Potassium 3.1 L (3.5-5.1) mmol/L Creatinine (0.66-1.25) mg/dL Glucose (74-99) mg/dL POC Glucose (mg/dL) 128 H (75-99) mg/dL Calcium (8.4-10.2) mg/dL Microbiology - Last 24 Hours (Table) 05/18/17 19:23 Gram Stain - Final Sputum Sputum Culture - Final Assessment and Plan Assessment: Acute hypoxic respiratory failure secondary to COPD exacerbation. Currently on mechanical ventilator Acute COPD exacerbation Severe COPD with FEV1 of 33% of predicted Left-sided weakness with possible acute CVA, right MCA distribution. Repeat CT head could not be done due to respiratory status New onset seizures. EEG showed deep level activity History of smoking Hypertension BPH Moderate to severe protein calorie malnutrition DVT prophylaxis Plan: Patient be continued on IV steroids, breathing treatments and antibiotics.. Carotid duplex and 2-D echocardiogram was done. Patient will be continued on aspirin. MRI of the brain once breathing status improves. We will continue the current management and follow up closely. Prognosis is guarded with advanced COPD and multiple other medical problems. Discussed with his family at bedside in detail. Time with Patient: Greater than 30
[2017-05-21] MEDS: methylPREDNISolone SOD SUCCI 125 MG/2 ML VIAL IV SCH ×4 (00:17→18:00)
[2017-05-21] MEDS: HEPARIN SODIUM,PORCINE 5,000 UNIT/ML 1 ML VIAL SQ SCH ×3 (00:17→14:59)
[2017-05-21] MEDS ORDERED: TERBUTALINE 1 MG/ML VIAL SQ ONE (00:53)
[2017-05-21] MEDS: METOPROLOL TARTRATE 5 MG/5 ML VIAL IVP SCH ×3 (02:40→21:56)
[2017-05-21 04:48] LABS: Anion Gap 8 mmol/L; Blood Urea Nitrogen 25 mg/dL (9-20); Calcium 8.3 mg/dL (8.4-10.2); Carbon Dioxide 27 mmol/L (22-30); Chloride 105 mmol/L (98-107); Glucose 150 mg/dL (74-99); Magnesium 2.2 mg/dL (1.6-2.3); Potassium 3.6 mmol/L (3.5-5.1); Sodium 140 mmol/L (137-145)
[2017-05-21 05:00] LABS: Basophils % (A) 0 %; Eosinophils % (A) 0 %; HCT 36.1 % (39.0-53.0); Lymphocytes # (A) 0.2 k/uL (1.0-4.8); Lymphocytes % (A) 2 %; MCH 33.3 pg (25.0-35.0); MCHC 33.2 g/dL (31.0-37.0); MCV 100.5 fL (80.0-100.0); Mean Platelet Volume 7.6; Monocytes # (A) 0.4 k/uL (0-1.0); Monocytes % (A) 3 %; Neutrophils # (A) 12.9 k/uL (1.3-7.7); Neutrophils % (A) 95 %; Platelet Count 154 k/uL (150-450); RBC 3.59 m/uL (4.30-5.90); RDW 13.1 % (11.5-15.5); WBC 13.5 k/uL (3.8-10.6)
[2017-05-21] MEDS ORDERED: Phosphorus Replacement Protoco 1 EACH MISC MISCELLANE PRN (05:23)
[2017-05-21] MEDS: PIPERACILLIN-TAZOBACTAM 3.375 GM in DEXTROSE/WATER 1 50ML.BAG IVPB SCH ×3 (05:30→20:31)
[2017-05-21] MEDS: PROPOFOL 1,000 MG in EMPTY BAG 1 BAG IV SCH ×3 (05:30→20:32)
[2017-05-21] MEDS: guaiFENesin 600 MG TABLET.ER PO SCH ×2 (05:31→18:00)
[2017-05-21 05:41] LABS: Glucose,Whole Blood 124 mg/dL (75-99)
[2017-05-21] MEDS ORDERED: POTASSIUM BICARBONATE/CIT AC 20 MEQ TABLET.EFF NG-TUBE SCH (06:00)
[2017-05-21] MEDS: POTASSIUM PHOSPHATE 10 MMOL in SODIUM CHLORIDE 0.9% 250 ML IV SCH ×2 (06:06→08:38)
[2017-05-21 07:18] LABS: ABG Base Excess 8.1 mmol/L; ABG HCO3 32 mmol/L (21-25); ABG Oxygen Saturation 95.7 % (94-97); ABG PCO2 43 mmHg (35-45); ABG PH 7.47 (7.35-7.45); ABG PO2 71 mmHg (83-108); ABG TCO2 33 mmol/L (19-24)
[2017-05-21] MEDS: FORMOTEROL FUMARATE 20 MCG/2 ML NEBU INHALATION SCH ×2 (08:14→19:02)
[2017-05-21] MEDS: IPRATROPIUM-ALBUTEROL 3 ML NEB INHALATION SCH ×4 (08:14→19:03)
[2017-05-21] MEDS: BUDESONIDE 1 MG/2 ML NEBU INHALATION SCH ×2 (08:14→19:02)
[2017-05-21] MEDS: ACETYLCYSTEINE 800 MG/4 ML VIAL INHALATION SCH (08:15)
--- NOTE | 2017-05-21 08:34 | XR ---
EXAMINATION TYPE: XR chest 1V portable DATE OF EXAM: 05/21/2017 Comparison: 05/20/2017 Clinical History: 66-year-old male Tube placement Findings: ET tube satisfactory. NG tube courses below the diaphragm. Leftward patient rotation ultrasound katalina l cardiac and mediastinal contours. There is suggestion of some upward hilar retraction suggesting bi apical volume loss and scarring. The right hilum looks more pronounced as compared to the exam from y day likely due to the rotation. Interstitial changes in the right upper lobe persist. Possible t race right effusion. Hyperinflation with flattening of the hemidiaphragms. Impression: 1. Satisfactory ET tube. 2. Enlargement of the right hilum likely artifactual due to patient rotation. Attention on follow-up. 3. COPD, biapical volume loss and scarring, and continued right upper lobe interstitial infiltrates. 4. Possible trace right effusion.
[2017-05-21] MEDS: NICOTINE 14MG/24HR PATCH TRANSDERM SCH (08:37)
[2017-05-21] MEDS: levETIRAcetam IV 500 MG in SODIUM CHLORIDE 0.9% 100 ML IVPB SCH ×2 (08:38→21:55)
[2017-05-21] MEDS: CHLORHEXIDINE GLUCONATE 15 ML CUP MUCOUS MEM SCH ×2 (08:38→21:55)
[2017-05-21] MEDS: ASPIRIN 325 MG TAB PO SCH (08:38)
[2017-05-21] MEDS: TAMSULOSIN 0.4 MG CAP.ER.24H PO SCH (08:38)
[2017-05-21] MEDS: PANTOPRAZOLE 40 MG/10 ML VIAL IVP SCH ×2 (08:39→21:55)
[2017-05-21] MEDS: THEOPHYLLINE 24 HOUR 300 MG CAP.ER.24H PO SCH ×2 (08:40→21:56)
[2017-05-21 10:29] VITALS: BMI 17.8
[2017-05-21 12:31] LABS: Glucose,Whole Blood 115 mg/dL (75-99)
--- NOTE | 2017-05-21 12:38 | P.PN ---
Subjective Progress Note Date: 05/21/17 Principal diagnosis: Acute hypoxic respiratory failure secondary to COPD exacerbation, and acute right hemispheric CVA. A 66-year-old male patient with known history of severe COPD and the patient has been in a catabolic state for many years and he continues to smoke cigarettes on a daily basis. The patient has significant limitation in exercise capacity and the patient's baseline FEV1 is 33% of predicted with known severe hyperinflation on his chest x-rays as evident in his previous films from the office. The patient was doing relatively okay and his last evaluation my office was in November 2016. The patient came into the emergency department yesterday with worsening shortness of breath. He was in the ED approximately 2 days prior and the patient was having episodes of dysarthria and some weakness in his left face and slurred speech. He was also having some on and off weakness in his left upper and left lower extremity. He was having difficulty with ambulation due to increased weakness lower extremities bilaterally. The patient was seen in emergency department and the CAT scan of the brain was done that showed no acute abnormalities on 05/13/2017 and it showed stable atrophy with chronic small vessel ischemic changes. No hemorrhage was evident. The patient was discharged home and within next 24-48 hours his condition got worse and had to come back with altered mentation, left upper and left lower extremity weakness, left facial weakness, and slurred speech. Meanwhile his breathing got worse and he is actively bronchospastic and wheezy and short of breath. A blood gases was done emergency department and it showed no evidence of any hypercapnic respiratory failure. The patient was very anxious. He was brought into the ICU where he was given [id number] breathing treatments and he was started on IV Solu-Medrol high-dose. This morning I was able to put him on a BiPAP at a pressure of 8 over 4 cm of water. He is unable to tolerate higher pressures. He has excessive respiratory secretions. He is still able to swallow appropriately. I examined his swallow at the bedside and the patient did well. He has no chest pain. Is a congested cough. He has unable to speak of. This is in any rate his speech is garbled and slurred. He understands and comprehends very well. He is a bit anxious. He required Ativan overnight and currently will placed on Xanax. He is on oral aspirin. CAT scan of the brain was not repeated as the patient was unable to lay down flat because of his worsening shortness of breath and increased anxiety. Doppler of the carotids was done and showed 50% stenosis bilaterally in the internal carotid artery. The patient is currently not ICU and the family is at the bedside. Patient was seen by neurology yesterday. Suspect an acute right MCA distribution CVA. Patient was reevaluated today on 05/19/2017, remains on mechanical ventilation. His ventilator settings are tidal volume of 400, assist control rate of 20 FiO2 of 40% and PEEP of 5. Plateau pressure is about 18. Chest x-ray is mostly consistent with COPD/emphysema. ABG showed a pO2 of 75 pCO2 of 37 pH of 7.46. Basic metabolic profile is relatively normal. CBC showed WBC count of 20.1 hemoglobin is 13.6. Basic metabolic profile is relatively normal. Patient is scheduled to have repeat CT of the brain today, he was seen by cardiology for nonspecific EKG abnormalities. Patient continues to have mostly left-sided weakness secondary to his CVA in the middle cerebral artery distribution. Reevaluated today on 05/20/2017, patient remains on mechanical ventilations, basically on assist control mode, FiO2 is up to 50% because of relative drop in his pO2 on the ABG this morning. The rest of them remained the same. Patient is a bit anxious, restless, agitated, however he was on sedation interruption earlier when I saw him. He had to place him back on full sedation, otherwise the patient was not ventilating properly. Discussed his condition with family members including his and his daughter at bedside, and explained to them that the overall prognostic picture does not look too good. Patient is already DO NOT RESUSCITATE, and they are in the process of considering comfort care measures. Chest x-ray was reviewed and there is evidence of a new infiltrate in the right upper lobe could be a ventilator associated pneumonia, hence I recommended keeping him on Levaquin and I added Zosyn. No reason to add vancomycin because MRSA is not strongly suspected. Labs were reviewed pO2 is 61 pCO2 of 40 pH of 7.42 hence his FiO2 was increased from 40% to 50%. Patient is still requiring small dose of norepinephrine for low blood pressure, I recommended some fluid boluses to be given. His urine output was marginal last night, responded to fluid boluses and to Lasix early this morning. Reevaluated today on 05/21/2017, patient remains on mechanical ventilation, same ventilator settings with assist control rate of 18, tidal volume of 400, FiO2 of 50%, and PEEP of 5. Patient was sedated earlier on propofol, however I was able to discontinue propofol, awake and the patient, seems to be appropriate, followed simple instructions, but clearly cannot move his left upper extremity and left lower extremity. Patient clearly has dense hemiplegia on the left side. Couldn't even wiggle toes on the left side, but was doing well on the right side. On physical examination patient had diffuse rhonchi and wheezes, his chest x-ray was reviewed, right upper lobe seems to be a bit improved compared to yesterday. But clearly suspicious for infiltrate. Labs were all reviewed ABG showed a pO2 of 71 pH of 7.47 pCO2 of 43. Basic metabolic profile and renal profile were noted to be normal. Patient remains on tube feeding, utilizing the nasogastric tube. Remains on antibiotics, and on bronchodilators. Patient is also on steroids. Family is at bedside, and we discussed different options. Objective - Vital Signs Vital signs: Vital Signs Temp 97.5 F L 05/21/17 08:00 Pulse 106 H 05/21/17 11:32 Resp 36 H 05/21/17 11:30 BP 114/71 05/21/17 11:30 Pulse Ox 97 05/21/17 11:30 Intake & Output 05/20/17 05/21/17 05/21/17 18:59 06:59 18:59 Intake Total 2011.613 1281.640 951.258 Output Total 1652 620 180 Balance 359.613 661.640 771.258 Weight 54.7 kg 54.7 kg Intake: IV 1340.0 425.0 492.5 0.9 at KVO 190 250 80 Piperacillin-Tazobactam 3 50.0 75.0 62.5 .375 gm In Dextrose/Water 1 50ml.bag @ 12.5 mls/hr IVPB Q8H [facility] Rx#: [id number] Potassium Phosphate 10 250 mmol In Sodium Chloride 0 .9% 250 ml @ 125 mls/hr IV Q2H [facility] Rx#:[id number] Sodium Chloride 0.9% 1, 1000 000 ml @ 999 mls/hr IV . Q1H1M ONE Rx#:[id number] levETIRAcetam IV 500 mg 100 100 100 In Sodium Chloride 0.9% 100 ml @ 400 mls/hr IVPB Q12HR [facility] Rx#:[id number] Intake, IV Titration 181.613 348.640 198.758 Amount Norepinephrin 4 mg-0.9% 81.375 48.907 5.25 Ns Pmx 4 mg In 250 ml @ Titrate IV .Q0M [facility] Rx#: [id number] Potassium Phosphate 10 125 125 mmol In Sodium Chloride 0 .9% 250 ml @ 125 mls/hr IV Q2H [facility] Rx#:[id number] Propofol 1,000 mg In 100.238 174.733 68.508 Empty Bag 1 bag @ Titrate IV .Q0M [facility] Rx#: [id number] Tube Feeding 430 448 230 Other 60 60 30 Output: Urine 1652 620 180 Other: Voiding Method Indwelling Catheter Indwelling Catheter # Voids 1 - Exam Physical Exam: Revealed a 66-year-old white male, cachectic looking, on mechanical ventilation, in no distress. Awake. But looks frail and chronically ill. HEENT:[Neck is supple.] [No neck masses.] [No thyromegaly.] [No JVD.] Moist mucous membranes. PERRLA, EOMI. Endotracheal tube is intact. Chest: [Diminished breath sounds at the bases, rhonchi and wheezes noted bilaterally especially on forced expiratory maneuver. Prolonged expiratory phase noted. Patient has a barrel chest.] Cardiac Exam: [Normal S1 and S2, no S3 gallop, no murmur.] Abdomen: [Soft, nontender, no megaly, no rebound, no guarding, normal bowel sounds.] Extremities: [No clubbing, no edema, no cyanosis.] Neurological Exam: Patient is arousable, and comprehending what he is being told , speech cannot be assessed. Left-sided weakness is noted. Pupils are equally reactive to light. Left facial droop is noted. Unable to assess gait. Psychiatric: Could not be assessed, patient is on mechanical ventilation. Musculoskeletal: Left-sided weakness as noted above. Lymphatics: No lymphadenopathy. - Labs CBC & Chem 7: 05/21/17 04:14 05/21/17 04:14 Labs: Abnormal Lab Results - Last 24 Hours (Table) 05/20/17 05/20/17 05/20/17 Range/Units 12:25 18:11 23:38 WBC (3.8-10.6) k/uL RBC (4.30-5.90) m/uL Hgb (13.0-17.5) gm/dL Hct (39.0-53.0) % MCV (80.0-100.0) fL Neutrophils # (1.3-7.7) k/uL Lymphocytes # (1.0-4.8) k/uL ABG pH (7.35-7.45) ABG pO2 (83-108) mmHg ABG HCO3 (21-25) mmol/L ABG Total CO2 (19-24) mmol/L Potassium 3.1 L (3.5-5.1) mmol/L BUN (9-20) mg/dL Creatinine (0.66-1.25) mg/dL Glucose (74-99) mg/dL POC Glucose (mg/dL) 128 H 121 H (75-99) mg/dL Calcium (8.4-10.2) mg/dL Phosphorus (2.5-4.5) mg/dL 05/21/17 05/21/17 05/21/17 Range/Units 04:14 04:14 05:39 WBC 13.5 H (3.8-10.6) k/uL RBC 3.59 L (4.30-5.90) m/uL Hgb 12.0 L (13.0-17.5) gm/dL Hct 36.1 L (39.0-53.0) % MCV 100.5 H (80.0-100.0) fL Neutrophils # 12.9 H (1.3-7.7) k/uL Lymphocytes # 0.2 L (1.0-4.8) k/uL ABG pH (7.35-7.45) ABG pO2 (83-108) mmHg ABG HCO3 (21-25) mmol/L ABG Total CO2 (19-24) mmol/L Potassium (3.5-5.1) mmol/L BUN 25 H (9-20) mg/dL Creatinine 0.60 L (0.66-1.25) mg/dL Glucose 150 H (74-99) mg/dL POC Glucose (mg/dL) 124 H (75-99) mg/dL Calcium 8.3 L (8.4-10.2) mg/dL Phosphorus 2.0 L (2.5-4.5) mg/dL 05/21/17 05/21/17 Range/Units 07:07 12:28 WBC (3.8-10.6) k/uL RBC (4.30-5.90) m/uL Hgb (13.0-17.5) gm/dL Hct (39.0-53.0) % MCV (80.0-100.0) fL Neutrophils # (1.3-7.7) k/uL Lymphocytes # (1.0-4.8) k/uL ABG pH 7.47 H (7.35-7.45) ABG pO2 71 L (83-108) mmHg ABG HCO3 32 H (21-25) mmol/L ABG Total CO2 33 H (19-24) mmol/L Potassium (3.5-5.1) mmol/L BUN (9-20) mg/dL Creatinine (0.66-1.25) mg/dL Glucose (74-99) mg/dL POC Glucose (mg/dL) 115 H (75-99) mg/dL Calcium (8.4-10.2) mg/dL Phosphorus (2.5-4.5) mg/dL Microbiology - Last 24 Hours (Table) 05/18/17 19:23 Gram Stain - Final Sputum Sputum Culture - Final Assessment and Plan Assessment: Impression: 1 acute hypoxic respiratory failure secondary to severe end-stage COPD exacerbation. 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 Being followed by neurology, CT of the brain is nondiagnostic. 3 severe end-stage COPD, FEV1 is in the range of 33%. 4 history of hypertension, 5 history of benign prostatic hypertrophy 6 tobacco dependence syndrome 7 chronic weight loss and cachexia secondary to COPD and poor nutritional status. Protein calorie malnutrition is suspected. 8 hypertension, most likely hypovolemic in nature, strongly doubt sepsis. Responded well to fluid, presently off norepinephrine. 9 acute ventilator associated pneumonia/VAP, hence his Zosyn was added to Levaquin. Recommendation: Continue present treatment plan including ventilatory support, antibiotics, steroids, enteral feeding, CT of the brain from yesterday was reviewed and basically unremarkable. No acute process was appreciated., continue GI and DVT prophylaxis, continue nutritional support, patient is clearly not ready for any form of weaning at this point. Prognosis remains extremely poor and guarded. Had another long discussion with all family members at bedside today, they seem to be inclined to consider optimizing his pulmonary status as much as possible, extubate possibly to BiPAP, NIPPV,, and if the patient tolerates the weaning that would be fine, if not family would be agreeable to proceed to comfort care measures at that point. My plan at this point is to optimize his pulmonary status over the next 24 hours as much as possible, and we'll likely extubate tomorrow to BiPAP. Critical care time is 40 minutes. Time with Patient: Greater than 30
[2017-05-21] MEDS: LEVOFLOXACIN 500MG-D5W PMX 500 MG in DEXTROSE/WATER 1 100ML.BAG IVPB SCH (14:59)
[2017-05-21 17:53] LABS: Glucose,Whole Blood 140 mg/dL (75-99)
--- NOTE | 2017-05-21 19:22 | P.PN ---
Subjective Progress Note Date: 05/21/17 This patient is a 66-year-old male with known history of asthma and severe COPD exacerbation. Patient was admitted with acute on chronic rest [place] failure. Neurology was consulted for evaluation of left-sided weakness as well as left- sided facial droop. He underwent an initial computed tomography scan of the brain which failed to reveal any acute changes. Patient developed respiratory distress and was transferred into the intensive care unit where he he was treated aggressively with IV steroids and breathing treatments. Patient continued to decompensate and did require intubation. Patient is currently seen in the intensive care unit on the ventilator. He is currently on a Diprivan drip. The patient was able to go for a repeat computed tomography scan of the brain today. This CAT scan of the brain reveals no acute intracranial hemorrhage or midline shift. 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 Diffuse age-related cerebral atrophy and chronic small vessel ischemic changes were noted. 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 As noted the CAT scan today fails to reveal any evidence of acute stroke or hemorrhage. Patient is recovering from acute hypoxic rest [place] failure secondary to severe end-stage COPD exacerbation. Pulmonary medicine is following his condition closely. The patient underwent routine EEG yesterday which was reviewed yesterday evening. His EEG was abnormal showing some right temporal lobe epileptiform discharges. He was started on Keppra yesterday 500 mg IV piggyback every 12 hours. Patient was seen by pulmonary medicine today. His overall prognosis remains extremely poor. This was discussed today with his daughter and the railcar switchman today regarding his overall condition and poor prognosis. Apparently his daughter and family members will consider possibly providing comfort care measures with the patient in the next [address] Pena had a long discussion with the family today. Plan is to optimize his pulmonary status is much as possible and possibly extubate him to BiPAP tomorrow. If the patient tolerates the weaning procedure we will continue close monitoring of the patient. If not family will proceed with comfort care measures at that point. The patient is not showing much improvement today neurologically. As noted above his overall prognosis remains very guarded. Objective - Vital Signs Vital signs: Vital Signs Temp 97.3 F L 05/21/17 16:00 Pulse 108 H 05/21/17 19:03 Resp 20 05/21/17 19:00 BP 109/69 05/21/17 19:00 Pulse Ox 93 L 05/21/17 19:00 Intake & Output 05/21/17 05/21/17 05/22/17 06:59 18:59 06:59 Intake Total 4569.634 8399.221 Output Total 620 615 Balance 367.884 4188.221 Weight 54.7 kg 54.7 kg Intake: IV 425.0 772.5 0.9 at KVO 250 260 Levofloxacin 500Mg-D5w 100 Pmx 500 mg In Dextrose/ Water 1 100ml.bag @ 100 mls/hr IVPB Q24H [facility] Rx#: [id number] Piperacillin-Tazobactam 3 75.0 62.5 .375 gm In Dextrose/Water 1 50ml.bag @ 12.5 mls/hr IVPB Q8H [facility] Rx#: [id number] Potassium Phosphate 10 250 mmol In Sodium Chloride 0 .9% 250 ml @ 125 mls/hr IV Q2H [facility] Rx#:[id number] levETIRAcetam IV 500 mg 100 100 In Sodium Chloride 0.9% 100 ml @ 400 mls/hr IVPB Q12HR [facility] Rx#:[id number] Intake, IV Titration 348.640 285.721 Amount Norepinephrin 4 mg-0.9% 48.907 25.563 Ns Pmx 4 mg In 250 ml @ Titrate IV .Q0M [facility] Rx#: [id number] Potassium Phosphate 10 125 125 mmol In Sodium Chloride 0 .9% 250 ml @ 125 mls/hr IV Q2H [facility] Rx#:[id number] Propofol 1,000 mg In 174.733 135.158 Empty Bag 1 bag @ Titrate IV .Q0M [facility] Rx#: [id number] Tube Feeding 448 736 Other 60 90 Output: Urine 620 615 Other: Voiding Method Indwelling Catheter Indwelling Catheter # Voids 1 - Exam Physical Examination: PHYSICAL EXAMINATION: Patient is resting comfortably in bed. Patient is intubated on the ventilator in the ICU today. VITAL SIGNS: Blood pressure is [109/69]. Heart rate is [101]. Respiration is [20 ]. Temperature is [97.3]. HEENT: Head is atraumatic, neck is supple, there were no carotid bruits. CHEST: Lungs are clear to auscultation and percussion. CARDIAC: S1, S2 normal rate and rhythm. There is no murmur. ABDOMEN: Soft and nontender. Bowel sounds are present. EXTREMITIES: There is no pedal edema. Peripheral pulses are present. Neurological examination: Patient's neurological examination is unchanged from yesterday. He has left- sided hemiparesis with mild left facial droop and slurred speech. Patient is hard to arouse today. He seems to be more obtunded. - Labs CBC & Chem 7: 05/21/17 04:14 05/21/17 16:49 Labs: Abnormal Lab Results - Last 24 Hours (Table) 05/20/17 05/21/17 05/21/17 Range/Units 23:38 04:14 04:14 WBC 13.5 H (3.8-10.6) k/uL RBC 3.59 L (4.30-5.90) m/uL Hgb 12.0 L (13.0-17.5) gm/dL Hct 36.1 L (39.0-53.0) % MCV 100.5 H (80.0-100.0) fL Neutrophils # 12.9 H (1.3-7.7) k/uL Lymphocytes # 0.2 L (1.0-4.8) k/uL ABG pH (7.35-7.45) ABG pO2 (83-108) mmHg ABG HCO3 (21-25) mmol/L ABG Total CO2 (19-24) mmol/L BUN 25 H (9-20) mg/dL Creatinine 0.60 L (0.66-1.25) mg/dL Glucose 150 H (74-99) mg/dL POC Glucose (mg/dL) 121 H (75-99) mg/dL Calcium 8.3 L (8.4-10.2) mg/dL Phosphorus 2.0 L (2.5-4.5) mg/dL 05/21/17 05/21/17 05/21/17 Range/Units 05:39 07:07 12:28 WBC (3.8-10.6) k/uL RBC (4.30-5.90) m/uL Hgb (13.0-17.5) gm/dL Hct (39.0-53.0) % MCV (80.0-100.0) fL Neutrophils # (1.3-7.7) k/uL Lymphocytes # (1.0-4.8) k/uL ABG pH 7.47 H (7.35-7.45) ABG pO2 71 L (83-108) mmHg ABG HCO3 32 H (21-25) mmol/L ABG Total CO2 33 H (19-24) mmol/L BUN (9-20) mg/dL Creatinine (0.66-1.25) mg/dL Glucose (74-99) mg/dL POC Glucose (mg/dL) 124 H 115 H (75-99) mg/dL Calcium (8.4-10.2) mg/dL Phosphorus (2.5-4.5) mg/dL 05/21/17 Range/Units 17:52 WBC (3.8-10.6) k/uL RBC (4.30-5.90) m/uL Hgb (13.0-17.5) gm/dL Hct (39.0-53.0) % MCV (80.0-100.0) fL Neutrophils # (1.3-7.7) k/uL Lymphocytes # (1.0-4.8) k/uL ABG pH (7.35-7.45) ABG pO2 (83-108) mmHg ABG HCO3 (21-25) mmol/L ABG Total CO2 (19-24) mmol/L BUN (9-20) mg/dL Creatinine (0.66-1.25) mg/dL Glucose (74-99) mg/dL POC Glucose (mg/dL) 140 H (75-99) mg/dL Calcium (8.4-10.2) mg/dL Phosphorus (2.5-4.5) mg/dL Assessment and Plan (1) Acute right arterial ischemic stroke, MCA (middle cerebral artery) Current Visit: Yes Status: Acute Code(s): I63.511 - CEREB INFRC D/T UNSP OCCLS OR STENOS OF RIGHT MID CEREB ART SNOMED Code(s): 794968242 (2) Aphasia Current Visit: Yes Status: Acute Code(s): R47.01 - APHASIA SNOMED Code(s) : 52517475 (3) Gait disorder Current Visit: Yes Status: Acute Code(s): R26.9 - UNSPECIFIED ABNORMALITIES OF GAIT AND MOBILITY SNOMED Code(s): 02898455 (4) Shortness of breath Current Visit: Yes Status: Acute Code(s): R06.02 - SHORTNESS OF BREATH SNOMED Code(s): 117273125 Plan: This patient is a 66-year-old male who is being treated for acute hypoxic respiratory failure secondary to severe COPD exacerbation. He has evidence suggesting acute right hemispheric stroke as well. He continues to be monitored closely in the intensive care unit. His prognosis read remains extremely poor and is being followed closely by pulmonary medicine. Plan is to extubate the patient tomorrow to BiPAP to see if he will tolerate this transition. If not the family is considering to placing him into comfort care measures at that point. Patient remains very obtunded today in the intensive care unit. As noted his overall prognosis at this time remains very guarded.
[2017-05-21] MEDS: DOXAZOSIN 4 MG TAB PO SCH (21:56)
[2017-05-22] MEDS: HEPARIN SODIUM,PORCINE 5,000 UNIT/ML 1 ML VIAL SQ SCH ×2 (00:09→08:30)
[2017-05-22] MEDS: methylPREDNISolone SOD SUCCI 125 MG/2 ML VIAL IV SCH ×2 (00:09→07:44)
[2017-05-22] MEDS: INSULIN ASPART 100 UNIT/ML 1 ML 10 ML VIAL SQ SCH ×2 (00:09→07:44)
[2017-05-22 00:11] LABS: Glucose,Whole Blood 120 mg/dL (75-99)
--- NOTE | 2017-05-22 00:42 | P.PN ---
Subjective Progress Note Date: 05/21/17 Principal diagnosis: COPD exacerbation Patient is a 66-year-old male with a known history of asthma, COPD, emphysema came to ER with complaints of worsening shortness of breath for the past few days. Patient came to ER about 2 days prior to admission and was having left- sided on of weakness and facial droop. Patient had CT head which showed no acute process. Patient wanted to be sent home at the time and was having worsening shortness of breath and came back to the hospital for further evaluation and treatment. Patient was easily on 100% nonrebreather and was transferred to ICU. Patient otherwise currently on BiPAP machine. Pulmonary and neurology is following. Chest x-ray on admission showed COPD and possible atelectatic changes in the right upper lobe also. Patient is being continued currently on IV steroids and breathing treatments. Repeat CT head could not be ordered due to patient unable to lie flat. Neurology recommended MRI of the brain Repeat chest x-ray showed severe COPD changes today. 05/19/2017 Patient went into respiratory distress and was subsequently intubated. Currently on mechanical ventilator. No fever no chills. Patient is being continued on IV sorbitol and breathing treatments and antibiotics. Chest x-ray showed radiographic sequele of COPD and pulmonary hypertension. EKG showed deep levels seizure activity 2-D echo showed normal ejection fraction and normal titer and a systolic pressure. Pulmonary, cardiology and neurology is following. Discussed with family in detail at bedside. 05/20/2017 Patient remained on mechanical ventilator. Patient became agitated with sedation interruption and is being continued on methadone. Currently. Patient still requiring pressors support otherwise area cardiology recommends conservative management. Chest showed evidence of new infiltrate in the right upper lobe with possible pneumonia. Patient is being carried on antibiotics at this time. Currently on Levaquin and Zosyn. Patient was given IV fluid boluses and is being continued on continuous IV hydration. Patient was started on Keppra due to seizure activity and the EEG. Patient's code status is DO NOT RESUSCITATE. Upon discussing, family is considering for comfort care. Patient is being followed by cardiology and neurology and pulmonary. 05/21/2017 Patient remained on mechanical ventilator. Plan is to extubate the patient to BiPAP machine and possible comfort care measures if the patient failed weaning trial. Discussed with the family. Pulmonary and nephrology is following. Review of systems could not be obtained from the patient. Active Medications Active Medications Generic Name Dose Route Start Last Admin Trade Name Freq PRN Reason Stop Dose Admin Hydrocodone Bitart/Acetaminophen 1 each 05/17/17 13:10 05/18/17 03:58 [place] 7.5-325 PO 1 each Q8H PRN Administration Pain Acetylcysteine 200 mg 05/18/17 13:30 05/20/17 07:08 Mucomyst INHALATION 200 mg RT-DAILY DUARTE Administration Albuterol/Ipratropium 3 ml 05/17/17 13:10 05/20/17 03:31 Duoneb 0.5 Mg-3 Mg/3 Ml Soln INHALATION 3 ml RT-QID PRN Administration Shortness Of Breath Or Wheezing Albuterol/Ipratropium 3 ml 05/17/17 16:00 05/20/17 19:24 Duoneb 0.5 Mg-3 Mg/3 Ml Soln INHALATION 3 ml RT-QID DUARTE Administration Alprazolam 0.5 mg 05/18/17 09:04 05/18/17 17:40 Xanax PO 0.5 mg TID PRN Administration Anxiety Aspirin 325 mg 05/18/17 10:15 05/20/17 08:50 Aspirin PO 325 mg DAILY DUARTE Administration Budesonide 1 mg 05/17/17 14:00 05/20/17 19:24 Pulmicort INHALATION 1 mg RT-BID DUARTE Administration Chlorhexidine Gluconate 15 ml 05/18/17 21:00 05/20/17 20:27 Peridex MUCOUS MEM 15 ml BID DUARTE Administration Doxazosin Mesylate 4 mg 05/17/17 21:00 05/20/17 20:28 Cardura PO 4 mg HS DUARTE Administration Formoterol Fumarate 20 mcg 05/17/17 14:00 05/20/17 19:24 Perforomist INHALATION 20 mcg RT-BID DUARTE Administration Guaifenesin 1,200 mg 05/18/17 18:00 05/20/17 17:51 Mucinex PO Not Given Q12H DUARTE Heparin Sodium (Porcine) 5,000 unit 05/19/17 16:00 05/20/17 15:12 Heparin SQ 5,000 unit Q8HR DUARTE Administration Levofloxacin 500 mg/ IV 100 mls @ 100 mls/hr 05/18/17 14:00 05/20/17 13:04 Solution IVPB 100 mls/hr Q24H DUARTE Administration Propofol 1,000 mg/ IV Solution 100 mls @ 0 mls/hr 05/18/17 19:00 05/20/17 20: 08 IV 58.23 mcg/kg/min .Q0M DUARTE 15.2 mls/hr Protocol Administration Titrate Norepinephrine Bitartrate 4 mg in 250 mls @ 0 mls/hr 05/18/17 22:15 05/20/17 20:28 Levophed-0.9% Nacl 4 Mg/250ml Pmx IV 1.5 mcg/min .Q0M DUARTE 5.625 mls/hr Protocol Titration Titrate Levetiracetam 500 mg/ Sodium 105 mls @ 400 mls/hr 05/19/17 21:00 05/20/17 20: 28 Chloride IVPB 400 mls/hr Q12HR DUARTE Administration Piperacillin/Tazobactam/ 50 mls @ 12.5 mls/hr 05/20/17 12:00 05/20/17 20:08 Dextrose 3.375 gm/ IV Solution IVPB 12.5 mls/hr Q8H DUARTE Administration Insulin Aspart 0 unit 05/19/17 00:00 05/20/17 18:25 Novolog SQ Not Given Q6H [facility] Protocol Methylprednisolone Sodium Succinate 60 mg 05/19/17 12:00 05/20/17 17:51 Solu-Medrol IV 60 mg Q6HR DUARTE Administration Miscellaneous Information 1 each 05/20/17 05:58 Potassium Per Protocol MISCELLANE DAILY PRN Per Protocol Protocol Naloxone HCl 0.2 mg 05/17/17 23:48 Narcan IV Q2M PRN Opioid Reversal Nicotine 1 patch 05/17/17 13:15 05/20/17 08:50 Habitrol 14mg/24hr Patch TRANSDERM 1 patch DAILY DUARTE Administration Pantoprazole Sodium 40 mg 05/19/17 09:00 05/20/17 20:27 Protonix IVP 40 mg BID DUARTE Administration Tamsulosin HCl 0.4 mg 05/18/17 08:30 05/20/17 08:02 Flomax PO Not Given PC-BRKFST DUARTE Theophylline 300 mg 05/17/17 21:00 05/20/17 20:28 Buddy-24 PO 300 mg BID DUARTE Administration Objective - Vital Signs Vital signs: Vital Signs Temp 97.9 F 05/21/17 20:30 Pulse 104 H 05/21/17 21:30 Resp 19 05/21/17 21:30 BP 113/62 05/21/17 21:30 Pulse Ox 91 L 05/21/17 21:30 Intake & Output 05/21/17 05/21/17 05/22/17 06:59 18:59 06:59 Intake Total 8469.312 7945.221 273.975 Output Total 620 615 80 Balance 676.083 8845.221 193.975 Weight 54.7 kg 54.7 kg Intake: IV 425.0 772.5 62.5 0.9 at KVO 250 260 50 Levofloxacin 500Mg-D5w 100 Pmx 500 mg In Dextrose/ Water 1 100ml.bag @ 100 mls/hr IVPB Q24H DUARTE Rx#: [id number] Piperacillin-Tazobactam 3 75.0 62.5 12.5 .375 gm In Dextrose/Water 1 50ml.bag @ 12.5 mls/hr IVPB Q8H DUARTE Rx#: [id number] Potassium Phosphate 10 250 mmol In Sodium Chloride 0 .9% 250 ml @ 125 mls/hr IV Q2H DUARTE Rx#:[id number] levETIRAcetam IV 500 mg 100 100 In Sodium Chloride 0.9% 100 ml @ 400 mls/hr IVPB Q12HR DUARTE Rx#:[id number] Intake, IV Titration 348.640 285.721 43.475 Amount Norepinephrin 4 mg-0.9% 48.907 25.563 10.125 Ns Pmx 4 mg In 250 ml @ Titrate IV .Q0M DUARTE Rx#: [id number] Potassium Phosphate 10 125 125 mmol In Sodium Chloride 0 .9% 250 ml @ 125 mls/hr IV Q2H DUARTE Rx#:[id number] Propofol 1,000 mg In 174.733 135.158 33.35 Empty Bag 1 bag @ Titrate IV .Q0M DUARTE Rx#: [id number] Tube Feeding 448 736 138 Other 60 90 30 Output: Urine 620 615 80 Other: Voiding Method Indwelling Catheter Indwelling Catheter Indwelling Catheter # Voids 1 - Exam PHYSICAL EXAMINATION: Patient is lying in the bed comfortably, no acute distress, currently sedated and on mechanical ventilator HEENT: Normocephalic. Neck is supple. Pupils reactive. Nostrils clear. Oral cavity is moist. Ears reveal no drainage. Neck reveals no JVD, carotid bruits, or thyromegaly. CHEST EXAMINATION: Trachea is central. Symmetrical expansion. Barrel chest. Bilateral diminished breath sounds and reveals. No wheezing CARDIAC: Normal S1, S2 with no gallops. No murmurs ABDOMEN: Soft. Bowel sounds normal. No organomegaly. No abdominal bruits. Extremities: reveal no edema. No clubbing or cyanosis Neurologically . Patient is currently sedated. Could not be assessed completely Skin: No rash or skin lesions. Psychiatric: Cooperative. Could not be assessed completely Musculoskeletal: No joint swelling or deformity. Normal range of motion. - Labs CBC & Chem 7: 05/21/17 04:14 05/21/17 16:49 Labs: Abnormal Lab Results - Last 24 Hours (Table) 05/20/17 05/21/17 05/21/17 Range/Units 23:38 04:14 04:14 WBC 13.5 H (3.8-10.6) k/uL RBC 3.59 L (4.30-5.90) m/uL Hgb 12.0 L (13.0-17.5) gm/dL Hct 36.1 L (39.0-53.0) % MCV 100.5 H (80.0-100.0) fL Neutrophils # 12.9 H (1.3-7.7) k/uL Lymphocytes # 0.2 L (1.0-4.8) k/uL ABG pH (7.35-7.45) ABG pO2 (83-108) mmHg ABG HCO3 (21-25) mmol/L ABG Total CO2 (19-24) mmol/L BUN 25 H (9-20) mg/dL Creatinine 0.60 L (0.66-1.25) mg/dL Glucose 150 H (74-99) mg/dL POC Glucose (mg/dL) 121 H (75-99) mg/dL Calcium 8.3 L (8.4-10.2) mg/dL Phosphorus 2.0 L (2.5-4.5) mg/dL 05/21/17 05/21/17 05/21/17 Range/Units 05:39 07:07 12:28 WBC (3.8-10.6) k/uL RBC (4.30-5.90) m/uL Hgb (13.0-17.5) gm/dL Hct (39.0-53.0) % MCV (80.0-100.0) fL Neutrophils # (1.3-7.7) k/uL Lymphocytes # (1.0-4.8) k/uL ABG pH 7.47 H (7.35-7.45) ABG pO2 71 L (83-108) mmHg ABG HCO3 32 H (21-25) mmol/L ABG Total CO2 33 H (19-24) mmol/L BUN (9-20) mg/dL Creatinine (0.66-1.25) mg/dL Glucose (74-99) mg/dL POC Glucose (mg/dL) 124 H 115 H (75-99) mg/dL Calcium (8.4-10.2) mg/dL Phosphorus (2.5-4.5) mg/dL 05/21/17 Range/Units 17:52 WBC (3.8-10.6) k/uL RBC (4.30-5.90) m/uL Hgb (13.0-17.5) gm/dL Hct (39.0-53.0) % MCV (80.0-100.0) fL Neutrophils # (1.3-7.7) k/uL Lymphocytes # (1.0-4.8) k/uL ABG pH (7.35-7.45) ABG pO2 (83-108) mmHg ABG HCO3 (21-25) mmol/L ABG Total CO2 (19-24) mmol/L BUN (9-20) mg/dL Creatinine (0.66-1.25) mg/dL Glucose (74-99) mg/dL POC Glucose (mg/dL) 140 H (75-99) mg/dL Calcium (8.4-10.2) mg/dL Phosphorus (2.5-4.5) mg/dL Assessment and Plan Assessment: Acute hypoxic respiratory failure secondary to COPD exacerbation. Currently on mechanical ventilator Acute COPD exacerbation Severe COPD with FEV1 of 33% of predicted Left-sided weakness with possible acute CVA, right MCA distribution. Repeat CT head could not be done due to respiratory status New onset seizures. EEG showed deep level activity History of smoking Hypertension BPH Moderate to severe protein calorie malnutrition DVT prophylaxis Plan: Patient be continued on IV steroids, breathing treatments and antibiotics.. Carotid duplex and 2-D echocardiogram was done. Patient will be continued on aspirin. MRI of the brain once breathing status improves. We will continue the current management and follow up closely. Prognosis is guarded with advanced COPD and multiple other medical problems. Discussed with his family at bedside in detail. Time with Patient: Greater than 30
[2017-05-22] MEDS: PIPERACILLIN-TAZOBACTAM 3.375 GM in DEXTROSE/WATER 1 50ML.BAG IVPB SCH (04:17)
[2017-05-22 05:11] LABS: Basophils % (A) 0 %; Eosinophils % (A) 0 %; HCT 37.7 % (39.0-53.0); HGB 12.3 gm/dL (13.0-17.5); Lymphocytes # (A) 0.3 k/uL (1.0-4.8); Lymphocytes % (A) 4 %; MCH 32.9 pg (25.0-35.0); MCHC 32.7 g/dL (31.0-37.0); MCV 100.6 fL (80.0-100.0); Mean Platelet Volume 7.9; Monocytes # (A) 0.3 k/uL (0-1.0); Monocytes % (A) 3 %; Neutrophils # (A) 8.3 k/uL (1.3-7.7); Neutrophils % (A) 93 %; Platelet Count 148 k/uL (150-450); RBC 3.74 m/uL (4.30-5.90); RDW 13.1 % (11.5-15.5)
[2017-05-22 05:42] LABS: Anion Gap 7 mmol/L; Blood Urea Nitrogen 26 mg/dL (9-20); Calcium 8.5 mg/dL (8.4-10.2); Carbon Dioxide 29 mmol/L (22-30); Chloride 102 mmol/L (98-107); Glucose 132 mg/dL (74-99); Magnesium 2.1 mg/dL (1.6-2.3); Potassium 3.7 mmol/L (3.5-5.1); Sodium 138 mmol/L (137-145)
[2017-05-22 06:00] LABS: Glucose,Whole Blood 110 mg/dL (75-99)
[2017-05-22] MEDS ORDERED: POTASSIUM BICARBONATE/CIT AC 20 MEQ TABLET.EFF NG-TUBE SCH (06:00)
[2017-05-22] MEDS: FORMOTEROL FUMARATE 20 MCG/2 ML NEBU INHALATION SCH (07:13)
[2017-05-22] MEDS: ACETYLCYSTEINE 800 MG/4 ML VIAL INHALATION SCH (07:13)
[2017-05-22] MEDS: BUDESONIDE 1 MG/2 ML NEBU INHALATION SCH (07:13)
[2017-05-22] MEDS: IPRATROPIUM-ALBUTEROL 3 ML NEB INHALATION SCH (07:13)
[2017-05-22] MEDS: guaiFENesin 600 MG TABLET.ER PO SCH (07:44)
[2017-05-22 08:06] LABS: ABG Base Excess 9.5 mmol/L; ABG HCO3 33 mmol/L (21-25); ABG Oxygen Saturation 97.1 % (94-97); ABG PCO2 43 mmHg (35-45); ABG PH 7.49 (7.35-7.45); ABG PO2 86 mmHg (83-108); ABG TCO2 34 mmol/L (19-24)
--- NOTE | 2017-05-22 08:24 | XR ---
EXAMINATION TYPE: XR chest 1V portable DATE OF EXAM: 05/22/2017 COMPARISON: 05/21/2017 HISTORY: Shortness of breath and endotracheal tube placement TECHNIQUE: Single frontal view of the chest is obtained. FINDINGS: Stable placement of the enteric and endotracheal tubes. Pulmonary hyperinflation is again identified compatible with underlying COPD with biapical lucency. E ngorgement of hilar vasculature likely relates underlying pulmonary arterial hypertension. No focal c onsolidation, pleural effusion or pneumothorax. Blunting of the costophrenic angles likely due to pul monary hyperinflation. Right upper lobe interstitial opacity is vague and similar to the prior. Biapi senait pleural-parenchymal thickening is again noted. Osseous structures are grossly intact. IMPRESSION: Stable line and tube, unchanged right upper lobe interstitial airspace disease, sequela of COPD, and unchanged engorgement of the hilar vasculature likely relating to underlying pulmonary arterial hyper tension.
[2017-05-22] MEDS: ASPIRIN 325 MG TAB PO SCH (08:30)
[2017-05-22] MEDS: TAMSULOSIN 0.4 MG CAP.ER.24H PO SCH (08:30)
[2017-05-22] MEDS: NICOTINE 14MG/24HR PATCH TRANSDERM SCH (08:31)
[2017-05-22] MEDS: CHLORHEXIDINE GLUCONATE 15 ML CUP MUCOUS MEM SCH (08:31)
[2017-05-22] MEDS: levETIRAcetam IV 500 MG in SODIUM CHLORIDE 0.9% 100 ML IVPB SCH (08:31)
[2017-05-22] MEDS: PANTOPRAZOLE 40 MG/10 ML VIAL IVP SCH (08:31)
[2017-05-22] MEDS: THEOPHYLLINE 24 HOUR 300 MG CAP.ER.24H PO SCH (08:31)
[2017-05-22] MEDS: METOPROLOL TARTRATE 5 MG/5 ML VIAL IVP SCH (09:22)
[2017-05-22 09:47] VITALS: TEMP 97.7
[2017-05-22] MEDS ORDERED: ONDANSETRON 4 MG/2 ML VIAL IVP PRN (10:53)
[2017-05-22] MEDS ORDERED: LORazepam 2 MG/ML INJ IV PRN (10:53)
[2017-05-22] MEDS ORDERED: MORPHINE SULF 5MG/10ML VL IV PRN (10:53)
[2017-05-22 11:18] VITALS: BP 86/64; PULSE 109; RESP 22
--- NOTE | 2017-05-23 01:22 | P.DS ---
Providers Date of admission: 05/17/17 12:40 Expected date of discharge: 05/22/17 Attending physician: Gavino Monsalve Consults: 05/17/17 12:55 Consult Physician Stat Consulting Provider: Isidro James Consult Reason/Comments: Unsteady gait Do you want consulting provider notified?: Yes 05/17/17 15:00 Consult Physician Routine Consulting Provider: Svitlana Recinos Consult Reason/Comments: COPD exacterbation, ICU management Do you want consulting provider notified?: Yes 05/17/17 18:40 Consult Physician Stat Consulting Provider: Leonel Clement Consult Reason/Comments: Unable to pass urine Do you want consulting provider notified?: Yes 05/19/17 02:03 Consult Physician Routine Consulting Provider: Nathan Hernandes Consult Reason/Comments: elevated CKMB Do you want consulting provider notified?: Yes, Notify in am Primary care physician: Gavino Monsalve Hospital Course: Discharge diagnosis Acute hypoxic respiratory failure secondary to COPD exacerbation. Currently wearing of terminally Acute COPD exacerbation Severe COPD with FEV1 of 33% of predicted Left-sided weakness with possible acute CVA, right MCA distribution. Repeat CT head could not be done due to respiratory status New onset seizures. EEG showed deep level activity History of smoking Hypertension BPH Moderate to severe protein calorie malnutrition DVT prophylaxis Hospital course Patient is a 66-year-old male with a known history of asthma, COPD, emphysema came to ER with complaints of worsening shortness of breath for the past few days. Patient came to ER about 2 days prior to admission and was having left- sided on of weakness and facial droop. Patient had CT head which showed no acute process. Patient wanted to be sent home at the time and was having worsening shortness of breath and came back to the hospital for further evaluation and treatment. Patient was easily on 100% nonrebreather and was transferred to ICU. Patient otherwise currently on BiPAP machine. Pulmonary and neurology is following. Chest x-ray on admission showed COPD and possible atelectatic changes in the right upper lobe also. Patient is being continued currently on IV steroids and breathing treatments. Repeat CT head could not be ordered due to patient unable to lie flat. Neurology recommended MRI of the brain Repeat chest x-ray showed severe COPD changes today. 05/19/2017 Patient went into respiratory distress and was subsequently intubated. Currently on mechanical ventilator. No fever no chills. Patient is being continued on IV sorbitol and breathing treatments and antibiotics. Chest x-ray showed radiographic sequele of COPD and pulmonary hypertension. EKG showed deep levels seizure activity 2-D echo showed normal ejection fraction and normal titer and a systolic pressure. Pulmonary, cardiology and neurology is following. Discussed with family in detail at bedside. 05/20/2017 Patient remained on mechanical ventilator. Patient became agitated with sedation interruption and is being continued on methadone. Currently. Patient still requiring pressors support otherwise area cardiology recommends conservative management. Chest showed evidence of new infiltrate in the right upper lobe with possible pneumonia. Patient is being carried on antibiotics at this time. Currently on Levaquin and Zosyn. Patient was given IV fluid boluses and is being continued on continuous IV hydration. Patient was started on Keppra due to seizure activity and the EEG. Patient's code status is DO NOT RESUSCITATE. Upon discussing, family is considering for comfort care. Patient is being followed by cardiology and neurology and pulmonary. 05/21/2017 Patient remained on mechanical ventilator. Plan is to extubate the patient to BiPAP machine and possible comfort care measures if the patient failed weaning trial. Discussed with the family. Pulmonary and nephrology is following. [phone] Patient was extubated as per family agreement and was transferred to hospice care. Vital Signs - 24 hr 05/22/17 05/22/17 05/22/17 01:30 02:00 02:30 Temperature Pulse Rate 107 H 92 97 Respiratory 18 18 18 Rate Blood Pressure 108/66 113/67 109/65 O2 Sat by Pulse 93 L 92 L 94 L Oximetry 05/22/17 05/22/17 05/22/17 03:00 03:30 04:00 Temperature 97.6 F Pulse Rate 94 99 95 Respiratory 18 18 18 Rate Blood Pressure 113/71 114/74 107/67 O2 Sat by Pulse 96 96 94 L Oximetry 05/22/17 05/22/17 05/22/17 04:30 05:00 05:30 Temperature Pulse Rate 88 105 H 94 Respiratory 18 17 20 Rate Blood Pressure 106/54 108/68 99/67 O2 Sat by Pulse 96 96 94 L Oximetry 05/22/17 05/22/17 05/22/17 06:00 06:30 07:00 Temperature Pulse Rate 97 96 89 Respiratory 17 17 18 Rate Blood Pressure 101/64 99/62 105/64 O2 Sat by Pulse 94 L 94 L 94 L Oximetry 05/22/17 05/22/17 05/22/17 07:15 07:39 07:48 Temperature Pulse Rate 101 H 100 103 H Respiratory Rate Blood Pressure O2 Sat by Pulse Oximetry 05/22/17 05/22/17 05/22/17 08:00 09:00 10:00 Temperature 97.7 F Pulse Rate 97 99 98 Respiratory 14 16 17 Rate Blood Pressure 109/64 109/67 76/54 O2 Sat by Pulse 96 97 98 Oximetry 05/22/17 11:00 Temperature Pulse Rate 109 H Respiratory 22 Rate Blood Pressure 86/64 O2 Sat by Pulse 96 Oximetry Patient Condition at Discharge: Serious Plan - Discharge Summary New Discharge Prescriptions: No Action Albuterol Nebulized [Ventolin Nebulized] 2.5 mg INHALATION RT-QID Theophylline 12 Hour [Buddy-Dur] 300 mg PO BID Terazosin [Hytrin] 5 mg PO HS Ranitidine HCl 150 mg PO DAILY Atenolol 25 mg PO DAILY Levofloxacin [Levaquin] 500 mg PO DAILY HYDROcodone/APAP 7.5-325MG [[place] 7.5-325] 1 tab PO Q8H PRN PRN Reason: Pain Doxylamine Succinate [Unisom] 25 mg PO HS PRN PRN Reason: Insomnia Discharge Medication List Albuterol Nebulized [Ventolin Nebulized] 2.5 mg INHALATION RT-QID 05/13/17 [ History] Atenolol 25 mg PO DAILY 05/13/17 [History] Levofloxacin [Levaquin] 500 mg PO DAILY 05/13/17 [History] Ranitidine HCl 150 mg PO DAILY 05/13/17 [History] Terazosin [Hytrin] 5 mg PO HS 05/13/17 [History] Theophylline 12 Hour [Buddy-Dur] 300 mg PO BID 05/13/17 [History] Doxylamine Succinate [Unisom] 25 mg PO HS PRN 05/17/17 [History] HYDROcodone/APAP 7.5-325MG [[place] 7.5-325] 1 tab PO Q8H PRN 05/17/17 [History] Follow up Appointment(s)/Referral(s): Gavino Monsalve DO [Primary Care Provider] - 1-2 days Discharge Disposition: [facility] TO [facility]
--- NOTE | 2017-05-23 14:32 | CDI ---
Last Revision, January 2017 Documentation Clarification Form Date: 05/23/17 From: Cora Vick Phone: If you have a question regarding this query, please contact Tiffani Jack at [phone] between 8am and 5pm. Admit Date: 05/17/2017 12:40:00 PM Patient Name: Jamir Suh Visit Number: [id number] Discharge Date: 05/22 ATTENTION: The Clinical Documentation Specialists (CDI) and [facility] Coding Staff appreciate your assistance in clarifying documentation. Please respond to the clarification below the line at the bottom and electronically sign. The CDI & [facility] Coding staff will review the response and follow-up if needed. Please note: Queries are made part of the Legal Health Record. If you have any questions, please contact the author of this message via ITS. Dr. Isidro James Possible acute right MCA distribution CVA is documented as a diagnosis your consult and progress notes and in Dr. Shane's consult note and in the dishcharge summary. History/risk factors: Patient has a history of hypertension and cigarette smoking, Clinical Indicators: aphasia, left hemiparesis, facial droop. CT: 05/19 1. No acute intracranial hemorrhage or midline shift. 2. 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 3. redemonstration of diffuse age-related cerebral atrophy and chronic small vessel ischemia. Repeat CT of the head could not be done due to respiratory status and new onset seiazures. Treatment: IV Heparin In your professional opinion, please clarify each of the following: Cause of Stroke/CVA: Stenosis/Occlusion Embolic Hemorrhage Infarction Occlusion Stenosis Thrombolytic Hypertension Other (please specify) Unable to Determine Unable to determine. MTDD
--- NOTE | 2017-06-03 14:10 | CDI ---
Last Revision, January 2017 Documentation Clarification Form Date: 06/03/17 From: Cora Vick Phone: If you have a question regarding this query, please contact Tiffani Jack at [phone] between 8am and 5pm Admit Date: 05/17/2017 12:40:00 PM Patient Name: Jamir Suh Visit Number: [id number] Discharge Date: ATTENTION: The Clinical Documentation Specialists (CDI) and [facility] Coding Staff appreciate your assistance in clarifying documentation. Please respond to the clarification below the line at the bottom and electronically sign. The CDI & [facility] Coding staff will review the response and follow-up if needed. Please note: Queries are made part of the Legal Health Record. If you have any questions, please contact the author of this message via ITS. Dr. Isidro James Patient was admitted for increased shortness of breath. According to the family over the last 2 weeks he has shown deterioratioin with slurring of his speech and lef-sided weakness. He has also been having difficulty ambulating at home due to weakness in legs. Patient was diagnosed with right arterial ischemic stroke, MCA. Per ICD-10, the coding of CVA requires additional documentation of total NIHSS score to fully explain the patients condition. In your professional opinion, can you please clarify? The total NIHSS score Unable to determine Unable to determine NIHSS. MTDD
== END 2017-05-22 11:23 | disposition hospice, inpatient (51) | DRG 208 ==
LOC: EC 10:40 → 6SEL 12:40 → 6ICU 22:18
PROVIDERS: ADMIT Family Medicine; ATTEND Family Medicine
PROC: 5A1945Z Respiratory Ventilation, 24-96 Consecutive Hours (ICD-10-PCS; principal; 2017-05-18)
PROC: 0BH17EZ Insertion of Endotracheal Airway into Trachea, Via Natural or Artificial Opening (ICD-10-PCS; 2017-05-18)
PROC: 5A09357 Assistance with Respiratory Ventilation, Less than 24 Consecutive Hours, Continuous Positive Airway Pressure (ICD-10-PCS; 2017-05-18)
DX: J96.21 Acute and chronic respiratory failure with hypoxia (principal); I63.8 Other cerebral infarction; J95.851 Ventilator associated pneumonia; N13.8 Other obstructive and reflux uropathy; G81.94 Hemiplegia, unspecified affecting left nondominant side; Z68.1 Body mass index [BMI] 19.9 or less, adult; I95.9 Hypotension, unspecified; I27.20 Pulmonary hypertension, unspecified; R56.9 Unspecified convulsions; E86.1 Hypovolemia; R29.810 Facial weakness; R47.81 Slurred speech; J43.9 Emphysema, unspecified; F41.9 Anxiety disorder, unspecified; H91.92 Unspecified hearing loss, left ear; I10 Essential (primary) hypertension; N40.1 Benign prostatic hyperplasia with lower urinary tract symptoms; R33.8 Other retention of urine; F17.210 Nicotine dependence, cigarettes, uncomplicated; R63.4 Abnormal weight loss; Z66 Do not resuscitate; Z79.899 Other long term (current) drug therapy; Z86.73 Personal history of transient ischemic attack (TIA), and cerebral infarction without residual deficits; Y84.8 Other medical procedures as the cause of abnormal reaction of the patient, or of later complication, without mention of misadventure at the time of the procedure
CPT/HCPCS: 36415; 36600; 70450; 71045; 71046; 80048; 80053; 80061; 81001; 82550; 82553; 82805; 83735; 83880; 84100; 84132; 84484; 85025; 85379; 85610; 85730; 87070; 87086; 87205; 87502; 93005; 93306; 93880; 94002; 94003; 94640; 94660; 95819; 96361; 96374; 99291